=== PATIENT | male | born 1955 | race African-American/Black ===

== ENCOUNTER 2016-08-29 23:03 | Inpatient (IN) | payer OTHER ==
--- NOTE | 2016-08-30 01:09 | PDOC ---
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 Patient reports he had a recent fall about 1 day ago, landing on his gluteal region. Denies LOC or head trauma. Now has complaints of increasing pain to the bilateral legs, hip, lower back and left arm. States he is compliant with his pain medications for his neuropathy. The patient denies fever, chills, cough, SOB, chest pain, and palpitations. The patient denies abdominal pain, nausea, vomiting, and diarrhea. Allergies: penicillin Social History: No alcohol, tobacco, or drug use reported. Past Surgical History: neck surgery PCP: Dr. Elena Hauser <Rosanna Abdi - Last Filed: 08/30/16 03:14> - General History Source: Patient <Eugenio Collazo - Last Filed: 08/30/16 04:03> - General Stated Complaint: FALL Time Seen by Provider: 08/30/16 01:02 Past History <Rosanna Abdi - Last Filed: 08/30/16 03:14> - Past Medical History Liver Disease: No (HEP C) - Surgical History Orthopedic Surgery: Yes (discogenic dz s/p neck sx) - Immunization History Immunization Up to Date: Yes - Psycho/Social/Smoking Cessation Hx Anxiety: No Suicidal Ideation: No Smoking History: Never smoked Have you smoked in the past 12 months: No Hx Alcohol Use: No Drug/Substance Use Hx: No Substance Use Type: None Hx Substance Use Treatment: No <Eugenio Collazo - Last Filed: 08/30/16 04:03> - Past Medical History Allergies/Adverse Reactions: Allergies Allergy/AdvReac Type Severity Reaction Status Date / Time Penicillins Allergy Severe Swelling Verified 08/30/16 01:18 Home Medications: Ambulatory Orders Oxycodone HCl/Acetaminophen [Percocet 5-325 mg Tablet] 1 tab PO ASDIR 08/21/15 Gabapentin [Neurontin] 0 mg PO DAILY 01/23/16 Oxycodone HCl [Oxycontin] 30 mg PO PRN 03/23/16 Review of Systems - Review of Systems Able to Perform ROS?: Yes Comments:: 08/30/16 01:24 CONSTITUTIONAL: Absent: fever, no chills, no fatigue EYES: Absent: visual changes ENT: Absent: ear pain, no sore throat CARDIOVASCULAR: Absent: chest pain, no palpitations RESPIRATORY: Absent: cough, no SOB GI: Absent: abdominal pain, no nausea, no vomiting, no constipation, no diarrhea GENITOURINARY: Absent: dysuria, no frequency, no hematuria MUSCULOSKELETAL: +pain to the bilateral legs, hip, lower back and left arm SKIN: Absent: rash NEURO: Absent: headache <Rosanna Abdi - Last Filed: 08/30/16 03:14> *Physical Exam - Vital Signs Last Vital Signs Temp Pulse Resp BP Pulse Ox 97.9 F 69 18 173/90 98 08/29/16 23:25 08/29/16 23:25 08/29/16 23:25 08/29/16 23:25 08/29/16 23:25 - Physical Exam Comments: 08/30/16 01:24 GENERAL: Well-appearing, well-nourished. No apparent distress. HEENT: Normocephalic, atraumatic. No racoon or santana signs. PERRL, EOM intact. No hemotympanum. CARDIOVASCULAR: Normal S1, S2. Regular rate and rhythm. PULMONARY: Clear to auscultation bilaterally. ABDOMEN: Soft, non-distended, non-tender. EXTREMITIES: Decreased ROM of left shoulder and bilateral legs secondary to pain. Tenderness of the left shoulder, bilateral hip, and bilateral femur. No gross deformities. SKIN: Warm, dry. No rash NEUROLOGICAL: No focal neurological deficits. <Rosanna Abdi - Last Filed: 08/30/16 03:14> ED Treatment Course - LABORATORY CBC & Chemistry Diagram: 08/30/16 02:22 08/30/16 02:22 - RADIOLOGY Radiograph Interpretation: 08/30/16 03:14 EXAM: CT lumbar spine without contrast Reviewed by Imaging warehouse operations associate: FINDINGS: Negative for lumbar fracture or malalignment. L2-3 disc/osteophyte complex and facet hypertrophy. Disc bulging. Results in mild canal narrowing. L3-4 prominent disc bulging probably with a central herniated component. Posterior element/ligamentum flavum hypertrophy. This results in moderate to severe canal stenosis. This is more accurately be assessed with MRI. L4-5 prominent disc bulging and posterior element/ligamentum flavum hypertrophy also resulting in moderate to severe canal stenosis. L5-S1 disc bulging with mild ligamentum flavum hypertrophy. No significant canal stenosis. Evaluation of the disc bulges/herniations and canal stenosis is more accurately assessed with MRI. There also lucencies in the sacrum and iliac bones which should be assessed by MRI to make sure they are not bony neoplasm. Degenerative changes of the sacroiliac joints noted. <Rosanna Abdi - Last Filed: 08/30/16 03:14> - LABORATORY CBC & Chemistry Diagram: 08/30/16 02:22 08/30/16 02:22 <Eugenio Collazo - Last Filed: 08/30/16 04:03> Medical Decision Making - Medical Decision Making 08/30/16 04:01 Dr. Collazo: The scribe's documentation has been prepared under my direction and personally reviewed by me in its entirery. I confirm that the note above accurately reflects all work, treatment, procedures, and medical decision making performed by me. Pt with multiple herniated discs of lumbar spine. Pt having intractable back pain. Will admit to medr. <Eugenio Collazo - Last Filed: 08/30/16 04:03> *DC/Admit/Observation/Transfer - Attestations Scribe Attestion: 08/30/16 01:24 Documentation prepared by Rosanna Abdi, acting as medical records analyst for Eugenio Collazo MD <Rosanna Abdi - Last Filed: 08/30/16 03:14> - Discharge Dispostion Admit: Yes <Eugenio Collazo - Last Filed: 08/30/16 04:03> Diagnosis at time of Disposition: Radiculopathy, Status post fall, Herniated intervertebral disc of lumbar spine , Intractable low back pain - Referrals Referrals: Elena Hauser [Primary Care Provider] -
[2016-08-30] MEDS ORDERED: KETOROLAC TROMETHAMINE 30 MG/1 ML VIAL IVPUSH ONE (02:31)
[2016-08-30 02:44] LABS: MCH 31.5 pg (25.7-33.7); MCHC 33.1 g/dl (32.0-35.9); MEAN CELL VOLUME 95.4 fl (80-96); NEUTROPHILS 52.5 % (42.8-82.8); RDW 14.5 % (11.9-15.9); WHITE BLOOD COUNT 4.5 K/mm3 (4.0-10.0)
[2016-08-30] MEDS ORDERED: METOPROLOL TARTRATE 5 MG/5 ML VIAL ONE (02:47)
[2016-08-30] MEDS ORDERED: HEPARIN INFUSION - 500 ML IVPB ONE (02:52)
[2016-08-30 03:05] LABS: ALBUMIN 3.7 g/dl (3.4-5.0); ANION GAP 13 (8-16); BILIRUBIN,TOTAL 0.5 mg/dL (0.2-1.0); CALCIUM 8.4 mg/dL (8.5-10.1); CO2 29 mmol/L (21-32); CREATININE 0.6 mg/dL (0.7-1.3); GLUCOSE,RANDOM 83 mg/dL (74-106); MAGNESIUM 1.8 mg/dL (1.8-2.4); SGOT/AST 66 U/L (15-37); SGPT/ALT 32 U/L (12-78); TOT PROT 6.6 g/dl (6.4-8.2)
[2016-08-30 03:08] LABS: ALK PHOS 50 U/L (45-117); TROPONIN I < 0.02 ng/ml (0.00-0.05)
[2016-08-30] MEDS ORDERED: KETOROLAC TROMETHAMINE 30 MG/1 ML VIAL ONE (03:33)
[2016-08-30 03:56] LABS: MEAN PLT VOLUME 10.1 fl (7.5-11.1); PLATELET COMMENT2 FEW GIANT PLTS; PLATELET COUNT 174 K/MM3 (134-434)
[2016-08-30] MEDS ORDERED: morphine CARPU-JECT 2 MG/1 ML DISP.SYRIN IVPUSH ONE ×2 (04:03→17:22)
[2016-08-30] MEDS ORDERED: ONDANSETRON 4 MG/2 ML VIAL IVPUSH STA (04:03)
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
[2016-08-30] MEDS ORDERED: ONDANSETRON 4 MG/2 ML VIAL ONE (05:28)
[2016-08-30] MEDS ORDERED: morphine CARPU-JECT 4 MG/1 ML DISP.SYRIN ONE (05:28)
[2016-08-30] MEDS ORDERED: ALBUTEROL SO4 0.083% IH SOL 2.5 MG/3 ML VIAL.NEB. NEB ONE (05:42)
[2016-08-30] MEDS ORDERED: ALBUTEROL SO4 2.5/IPRATROPIUM 0.5 INH SOL 3 ML VIAL.NEB. NEB ONE (05:43)
--- NOTE | 2016-08-30 09:37 | PN ---
Progress Note (short form) - Note Progress Note: Pt seen and examined. He is a 61 year old male 1 day s/p fall. He was c/o left hip pain, this morning it is more right hip pain. He has minimal low back pain. He denies and LE radiculopathy. PE No tenderness at LS spine, no muscle spasm. B/L LE NVI, no radiculopathy, no long track signs. No pain in left hip, groin, femur. No pelvic pain. No right groin pain. Min pain in right hip with flexion, int and ext rotation. Right proximal femur with mod tenderness, no echymoses, no swelling, no deformity. Min pain right femur with log rolling, no pain with axial load. Xray Of both hips and pelvis show no acute pathology, only mild OA. CTscan of LS spine, shows no acute pathology, only shows OA and central canal stenosis. Imp 61 yo M 1 day s/p fall, with c/o moderate right proximal femur pain/ contusion, overall doing fine. Rec P.T. for ambulation assistance, WBAT. Can DC tomorrow from an orthopedic pov F/U as an out pt if needed
--- NOTE | 2016-08-30 10:07 | EKG ---
Test Reason : Blood Pressure : / mmHG Vent. Rate : 063 BPM Atrial Rate : 063 BPM P-R Int : 158 ms QRS Dur : 106 ms QT Int : 466 ms P-R-T Axes : 066 072 056 degrees QTc Int : 476 ms NORMAL SINUS RHYTHM NORMAL ECG WHEN COMPARED WITH ECG OF 23-MAR-2016 05:44, NO SIGNIFICANT CHANGE WAS FOUND Confirmed by PHILIP GUZMÁN MD ([id number]) on 08/30/2016 10:07:02 AM Referred By: Confirmed By:PHILIP GUZMÁN MD
[2016-08-30 11:07] VITALS: BMI 19.1
[2016-08-30] MEDS: KETOROLAC TROMETHAMINE 30 MG/1 ML VIAL IVPUSH PRN ×2 (11:13→21:58)
[2016-08-30] MEDS: oxyCODONE HCL 5 MG TABLET PO PRN (17:39)
[2016-08-30 19:17] LABS: URINE APPEARANCE CLEAR; URINE BLOOD NEGATIVE (NEGATIVE); URINE COLOR AMBER; URINE GLUCOSE (UA) NEGATIVE (NEGATIVE); URINE KETONE TRACE (NEGATIVE); URINE NITRITE NEGATIVE (NEGATIVE); URINE UROBILINOGEN 4.0 E.U/dl E.U./dl (0.2-1.0)
[2016-08-30 19:18] LABS: URINE LEUK ESTERASE TRACE (NEGATIVE); URINE PROTEIN 1+ (NEGATIVE)
[2016-08-30 19:21] LABS: URINE HYALINE CAST 1 /lpf; URINE MUCUS FEW; URINE RBC 1 /hpf (0-3); URINE WBC 12 /hpf (3-5); YEAST RARE
[2016-08-30] MEDS ORDERED: morphine CARPU-JECT 2 MG/1 ML DISP.SYRIN IVPUSH PRN (20:52)
[2016-08-31] MEDS: KETOROLAC TROMETHAMINE 30 MG/1 ML VIAL IVPUSH PRN ×2 (05:29→15:06)
[2016-08-31] MEDS: oxyCODONE HCL 5 MG TABLET PO PRN (10:22)
--- NOTE | 2016-08-31 11:01 | PN ---
Progress Note (short form) - Note Progress Note: Ortho Pt seen and examined- feeling much better decr pain, incr rom nvi a/p PT nothing further to do d/c home today per PMD f/u in the office prn d/w Dr. Rodriguez
[2016-08-31] MEDS ORDERED: amLODIPine BESYLATE 10 MG TABLET (FP) PO ONE (14:55)
[2016-08-31] MEDS ORDERED: LISINOPRIL 20 MG TABLET (FP) PO ONE (14:55)
--- NOTE | 2016-08-31 17:28 | DS ---
Physical Exam: SUBJECTIVE: Patient seen and examined. He denies pain, he is ambulating with walker he is eager to go home. OBJECTIVE: Vital Signs Period Temp Pulse Resp BP Sys/Greenberg Pulse Ox Last 24 Hr 97.8 F-98.8 F 57-96 18-20 150-212/75-118 98-98 PHYSICAL EXAM GENERAL: The patient is awake, alert, and fully oriented, in no acute distress. HEAD: Normal with no signs of trauma. EYES: PERRL, extraocular movements intact, sclera anicteric, conjunctiva clear. ENT: Ears normal, nares patent, oropharynx clear without exudates, moist mucous membranes. NECK: Trachea midline, full range of motion, supple. LUNGS: Breath sounds equal, clear to auscultation bilaterally, no wheezes, no crackles, no accessory muscle use. HEART: Regular rate and rhythm, S1, S2 without murmur, rub or gallop. ABDOMEN: Soft, nontender, nondistended, normoactive bowel sounds, no guarding, no rebound, no hepatosplenomegaly, no masses. EXTREMITIES: LUE weakness, chronic back pain, 2+ pulses, warm, well-perfused, no edema. NEUROLOGICAL: Cranial nerves II through XII grossly intact. Normal speech PSYCH: Normal mood, normal affect. SKIN: Warm, dry, normal turgor, no rashes or lesions noted. Laboratory Results - last 24 hr 08/30/16 18:40 Urine Color Donna Urine Appearance Clear Urine pH 5.0 Ur Specific [place] 1.029 Urine Protein 1+ H Urine Glucose (UA) Negative Urine Ketones Trace H Urine Blood Negative Urine Nitrite Negative Urine Bilirubin 2.0 Urine Urobilinogen 4.0 e.u/dl Ur Leukocyte Esterase Trace H Urine RBC 1 Urine WBC 12 Hyaline Casts 1 Urine Mucus Few Urine Yeast Rare HOSPITAL COURSE: Date of Admission:08/30/16 Date of Discharge: 08/31/16 Minutes to complete discharge: 35 Discharge Summary Reason For Visit: RADICULOPATHY S/P FALL HERNIATED DISC Current Active Problems DVT prophylaxis (Acute) Herniated intervertebral disc of lumbar spine (Acute) Intractable low back pain (Acute) Status post fall (Acute) Radiculopathy (Chronic) Hospital Course: Initial Hospital Course: Briefly, this 61 y/o male with a past medical history of Hepatitis C, Neuropathy. Discogenic dz. presented to the ED with s/p unwitnessed mechanical fall, back pain, hip pain, leg pain, left arm pain x 1 day. ER course: (1) CT LSP- Negative for lumbar fracture or mal alignment. L2-3 disc/osteophyte complex and facet hypertrophy. (2) ETOH level 184 Subsequent Hospital Course/Progress Note/Discharge Summary: Assessment: 61 year old male admitted s/p fall, with c/o moderate right proximal femur pain/contusion. 1. s/p fall with right proximal femur contusion - Walker for ambulation - Pain meds as per home pain mgmt routine for chronic back pain 2. HTN - Hypertensive on discharge, restarted home dose lisinopril 20mg daily and norvasc 10mg daily now - To continue on discharge - Monitor BP through tonight, if stable this evening after dinner can send home Dispo: - Home with pcp f/u and above meds - D/w pt he is aware and agrees to above plan Condition: Stable - Instructions Diet, Activity, Other Instructions: Please return to the ED for any new, persistent, or worsening symptoms. Follow up with your PCP in 1 week Take medications as directed on home medication list. You need to take your lisinopril 20mg daily and norvasc 10mg daily for blood pressure Referrals: Elena Hauser [Primary Care Provider] - Disposition: HOME - Home Medications Comprehensive Discharge Medication List: Ambulatory Orders NK [No Known Home Medication] 08/30/16 This patient is new to me today: Yes Date on this admission: 08/31/16 Emergency Visit: Yes ED Registration Date: 08/30/16 Care time: The patient presented to the Emergency Department on the above date and was hospitalized for further evaluation of their emergent condition. Critical Care patient: No - Discharge Referral Referred to [facility] No
[2016-08-31 20:28] VITALS: BP 135/87; PULSE 63; TEMP 98.6
--- NOTE | 2016-08-31 20:37 | HOSP ---
Subjective - Review of Symptoms Events since last encounter: Hospitalist Encounter Notified by primary RN that the patient's BP has improved. BP 135/87, P 63 Discharge Ordered placed, patient to be discharged by RN. Discharge plan discussed earlier with patient by ROGELIO Nguyen Physical Examination Vital Signs: Vital Signs Temperature 97.8 F 08/31/16 16:58 Pulse Rate 57 L 08/31/16 16:58 Respiratory Rate 18 08/31/16 16:58 Blood Pressure 181/111 08/31/16 16:58 O2 Sat by Pulse Oximetry (%) 98 08/31/16 10:00
== END 2016-08-31 20:59 | disposition home or self-care (01) | DRG 347 ==
LOC: JER 23:03 → JERBED 08-30 00:59 → UNDOADMIN 08-30 00:59 → JERBED 08-30 01:04 → UNDOADMIN 08-30 01:04 → JERBED 08-30 04:00 → J7W 08-30 08:33
PROVIDERS: ADMIT Internal Medicine; ATTEND Nurse Practitioner Acute Care
DX: M51.26 Other intervertebral disc displacement, lumbar region (principal); M54.16 Radiculopathy, lumbar region; B19.20 Unspecified viral hepatitis C without hepatic coma; M79.606 Pain in leg, unspecified; G62.9 Polyneuropathy, unspecified; M25.78 Osteophyte, vertebrae; S30.1XXA Contusion of abdominal wall, initial encounter; W18.39XA Other fall on same level, initial encounter; Y93.89 Activity, other specified; Y92.098 Other place in other non-institutional residence as the place of occurrence of the external cause; I10 Essential (primary) hypertension
CPT/HCPCS: 36415; 71010-TC; 72131-TC; 73523-TC; 73552-TC-LT; 73552-TC-RT; 80053; 80307; 81003; 81015; 82550; 82553; 83735; 84484; 85025; 87086; 87186; 93005; 93010; 97116-GP; 97161-GP; 99285-25

== ENCOUNTER 2016-11-29 17:17 | Inpatient (IN) | payer OTHER ==
[2016-11-29 17:22] VITALS: BMI 22.4
--- NOTE | 2016-11-29 18:23 | PDOC ---
History of Present Illness - General History Source: Patient Exam Limitations: No Limitations - History of Present Illness Initial Comments: CHIEF COMPLAINT: 61 y/o afebrile male with PMH Hepatitis C, HTN, left arm weakness and tingling secondary to cervical spine issue c/o right sided weakness s/p fall this morning. HISTORY OF PRESENT ILLNESS: The patient states early this morning he fell after he got out of bed. He states he did not hit his head nor did he lose consciousness after the fall. He states he was on the floor and couldn't move his right leg or arm so he laid there for many hours. He states by 2pm he was able to get himself onto a chair and a friend of his showed up at his house. According to his friend, the patient was slurring his speech when he first arrived at his home. The slurred speech has since resolved. The patient states prior to the fall he felt slightly dizzy and sweaty. He states he currently still has weakness in his right leg and arm, although improved from earlier. He did have some numbness in his right arm as well. He denies BUSCH, changes in vision/hearing, neck pain, f/c, n/v/d, CP, SOB, palpitations, abd pain, back pain, hematuria, dysuria. He does admit to baseline left hand weakness and some tingling in his right hand normally for which he sees a neurologist. He is normally ambulatory with a cane. Vital signs on arrival are within normal limits. REVIEW OF SYSTEMS: GENERAL/CONSTITUTIONAL: No fever/chills. No weakness. No weight change. +fall. +sweaty HEAD, EYES, EARS, NOSE AND THROAT: No change in vision. No ear pain or discharge. No sore throat. CARDIOVASCULAR: No chest pain or shortness of breath. RESPIRATORY: No cough, wheezing, or hemoptysis. GASTROINTESTINAL: no abd pain, nausea, vomiting, diarrhea. GENITOURINARY: No dysuria, frequency, or change in urination. MUSCULOSKELETAL: +right arm and right leg weakness. No neck or back pain. SKIN: No rash or easy bruising. NEUROLOGIC: +dizziness. +slurred speech. No headache, loss of consciousness, or loss of sensation. PHYSICAL EXAM: GENERAL: The patient is awake, alert, and fully oriented, in no acute distress. He is pleasant and speaks full, coherent sentences. HEAD: Normal with no signs of trauma. NECK: No midline cervical spine TTP or step offs. ENT: Pupils equal, round and reactive to light, extraocular movements intact, sclera anicteric, conjunctiva clear. LUNGS: Clear to auscultation bilaterally. Normal excursion. No respiratory distress or use of accessory muscles. CV: RRR, S1/S2, no MRG. Cap refill < 2 sec. ABDOMEN: Soft, non-distended, non-tender even to deep palpation, no hepatomegaly or splenomegaly, no masses. EXTREMITIES: Decreased strength in right hand and arm. Decreased strength in right leg. No edema. Left hand held in permanent contraction (patient's baseline). NEUROLOGICAL:Normal speech. CN II-XII grossly intact. No slurred speech. No facial droop. Normal sensation in b/l UEs and LEs. PSYCH: Normal mood, normal affect. SKIN: Warm, dry, normal turgor, no rashes or lesions noted. <Nupur Fountain - Last Filed: 11/29/16 17:58> <Emilee Garcia - Last Filed: 11/30/16 05:18> - General Chief Complaint: Injury Stated Complaint: FALL/INJURY Time Seen by Provider: 11/29/16 17:57 Past History - Past Medical History Anemia: No Asthma: No Cancer: No Cardiac Disorders: No CVA: No COPD: No CHF: No Dementia: No Diabetes: No GI Disorders: No Disorders: No HTN: No Hypercholesterolemia: No Liver Disease: No (HEP C) Seizures: No Thyroid Disease: No - Surgical History Abdominal Surgery: No Appendectomy: No Cardiac Surgery: No Cholecystectomy: No Lung Surgery: No Neurologic Surgery: No Orthopedic Surgery: Yes (discogenic dz s/p neck sx) - Immunization History Immunization Up to Date: Yes - Psycho/Social/Smoking Cessation Hx Anxiety: No Suicidal Ideation: No Smoking History: Never smoked Have you smoked in the past 12 months: No Hx Alcohol Use: No Drug/Substance Use Hx: No Substance Use Type: None Hx Substance Use Treatment: No <Nupur Fountain - Last Filed: 11/29/16 17:58> <Emilee Garcia - Last Filed: 11/30/16 05:18> - Past Medical History Allergies/Adverse Reactions: Allergies Allergy/AdvReac Type Severity Reaction Status Date / Time Penicillins Allergy Severe Swelling Verified 11/29/16 17:22 Home Medications: Ambulatory Orders NK [No Known Home Medication] 08/30/16 *Physical Exam - Vital Signs Last Vital Signs Temp Pulse Resp BP Pulse Ox 97.4 F L 70 20 121/81 100 11/29/16 17:18 11/29/16 17:18 11/29/16 17:18 11/29/16 17:18 11/29/16 17:18 <Nupur Fountain - Last Filed: 11/29/16 17:58> - Vital Signs Last Vital Signs Temp Pulse Resp BP Pulse Ox 99.1 F 70 16 123/74 96 11/30/16 01:20 11/30/16 01:20 11/30/16 01:20 11/30/16 01:20 11/30/16 01:20 <Emilee Garcia - Last Filed: 11/30/16 05:18> ED Treatment Course - LABORATORY CBC & Chemistry Diagram: 11/29/16 18:34 11/29/16 18:34 - ADDITIONAL ORDERS Additional order review: Laboratory Results 11/30/16 11/29/16 11/29/16 00:01 19:00 19:00 INR 1.02 Sodium Potassium Chloride Carbon Dioxide Anion Gap BUN Creatinine Creat Clearance w eGFR POC Glucometer Random Glucose Lactic Acid 1.9 Calcium Total Bilirubin AST ALT Alkaline Phosphatase Creatine Kinase Creatine Kinase Index CK-MB (CK-2) CK-MB (CK-2) Rel Index Troponin I Total Protein Albumin Urine Color Urine Appearance Urine pH Urine Protein Urine Glucose (UA) Urine Ketones Urine Blood Urine Nitrite Urine Bilirubin Urine Urobilinogen Ur Leukocyte Esterase Urine RBC Urine WBC Ur Epithelial Cells Urine Bacteria Hyaline Casts Urine Mucus Opiates Screen Positive Methadone Screen Negative Barbiturate Screen Negative Phencyclidine Screen Negative Ur Amphetamines Screen Negative MDMA (Ecstasy) Screen Negative Benzodiazepines Screen Negative Cocaine Screen Negative U Marijuana (THC) Screen Positive 11/29/16 11/29/16 11/29/16 19:00 18:34 18:34 INR Sodium Potassium Chloride Carbon Dioxide Anion Gap BUN Creatinine Creat Clearance w eGFR POC Glucometer Random Glucose Lactic Acid 4.0 H* Calcium Total Bilirubin AST ALT Alkaline Phosphatase Creatine Kinase Creatine Kinase Index CK-MB (CK-2) CK-MB (CK-2) Rel Index Cancelled Troponin I Total Protein Albumin Urine Color Yellow Urine Appearance Clear Urine pH 5.0 Urine Protein Negative Urine Glucose (UA) Negative Urine Ketones 1+ H Urine Blood Negative Urine Nitrite Positive Urine Bilirubin Negative Urine Urobilinogen Negative Ur Leukocyte Esterase 1+ H Urine RBC 3 Urine WBC 20 Ur Epithelial Cells Rare Urine Bacteria Rare Hyaline Casts 7 Urine Mucus Many Opiates Screen Methadone Screen Barbiturate Screen Phencyclidine Screen Ur Amphetamines Screen MDMA (Ecstasy) Screen Benzodiazepines Screen Cocaine Screen U Marijuana (THC) Screen 11/29/16 11/29/16 18:34 18:18 INR Sodium 139 Potassium 3.9 Chloride 100 Carbon Dioxide 25 Anion Gap 14 BUN 12 D Creatinine 0.8 D Creat Clearance w eGFR > 60 POC Glucometer 111.46960 Random Glucose 81 Lactic Acid Calcium 8.3 L Total Bilirubin 0.7 D AST 179 H D ALT 42 D Alkaline Phosphatase 52 Creatine Kinase 420 H D Creatine Kinase Index 0.8 CK-MB (CK-2) 3.190 CK-MB (CK-2) Rel Index Troponin I < 0.02 Total Protein 6.4 Albumin 3.7 Urine Color Urine Appearance Urine pH Urine Protein Urine Glucose (UA) Urine Ketones Urine Blood Urine Nitrite Urine Bilirubin Urine Urobilinogen Ur Leukocyte Esterase Urine RBC Urine WBC Ur Epithelial Cells Urine Bacteria Hyaline Casts Urine Mucus Opiates Screen Methadone Screen Barbiturate Screen Phencyclidine Screen Ur Amphetamines Screen MDMA (Ecstasy) Screen Benzodiazepines Screen Cocaine Screen U Marijuana (THC) Screen 11/29/16 11/29/16 18:34 18:18 RBC 4.20 MCV 95.0 MCHC 32.6 RDW 13.3 MPV 10.4 Neutrophils % 88.0 H D Lymphocytes % 5.5 L D Monocytes % 6.2 Eosinophils % 0.1 D Basophils % 0.2 POC Glucometer 111.00274 - RADIOLOGY Radiology Studies Ordered: Category Date Time Status BRAIN CTA [CT] Stat CT Scan 11/30/16 03:08 Taken - Medications Given in the ED: ED Medications Discontinued Medications Generic Name Dose Route Start Last Admin Trade Name Freq PRN Reason Stop Dose Admin Sodium Chloride 1,000 mls @ 1,000 mls/hr 11/29/16 22:49 11/29/16 23:28 Normal Saline - IV 11/29/16 23:48 1,000 mls/hr ASDIR STA Administration Ciprofloxacin/Dextrose 200 mls @ 200 mls/hr 11/29/16 22:51 11/30/16 00:07 Cipro 400 Mg Premix Ivpb (Restricted To Id) IVPB 11/29/16 23:50 200 mls/hr ONCE ONE Administration Morphine Sulfate 4 mg 11/29/16 22:49 11/29/16 23:28 Morphine Injection - IVPUSH 11/29/16 22:50 4 mg ONCE ONE Administration <Emilee Garcia - Last Filed: 11/30/16 05:18> Medical Decision Making - Medical Decision Making A/P: 61 y/o male with fall at approximately 8am (10 hours ago) with right sided weakness. Plan is as follows: 1. EKG 2. Labs 3. Head CT r/o TIA/CVA I am signing this patient out to my colleague: ROGELIO Garcia In brief, this patient is being seen in the ED for a chief complaint of: fall with slurred speech, right sided weakness I have completed the initial assessment interview note and have ordered: labs, EKG, UA, Head CT I have reviewed the following results: none Pending results are: all Plan for disposition is as follows: Pending <Nupur Fountain - Last Filed: 11/29/16 17:58> *DC/Admit/Observation/Transfer <Nupur Fountain - Last Filed: 11/29/16 17:58> - Discharge Dispostion Admit: Yes <Emilee Garcia - Last Filed: 11/30/16 05:18> Diagnosis at time of Disposition: Weakness Transient cerebral ischemia Qualifiers: Transient cerebral ischemia type: unspecified Qualified Code(s): G45.9 - Transient cerebral ischemic attack, unspecified Urinary tract infection Qualifiers: Urinary tract infection type: urethritis Qualified Code(s): N34.2 - Other urethritis - Discharge Dispostion Condition at time of disposition: Fair NIH Stroke Scale - Last Known Well Date/Time & Onset Date Last Known Well: 11/29/16 Time Last Known Well: 08:00 - Initial Evaluation Level of consciousness: Alert Ask patient the month and their age: Answers both correctly Ask patient to open & close eyes; make fist and let go: Obeys both correctly Best gaze (horizontal eye movement): Normal Visual field testing: No visual field loss Facial paresis (Show teeth/raise eyebrows/close eyes tight): Normal symmetrical movement Motor Function: Left Arm: Some effort against gravity Motor Function: Right Arm: Some effort against gravity Motor Function: Left Leg: Normal (extends leg 30 degrees for 5 seconds without drift) Motor Function: Right Leg: Some effort against gravity Limb Ataxia: No ataxia Sensory(Use pinprick test arms,legs,trunk,face/side to side): Normal Best language (Describe picture, name items, read sentences): No Aphasia Dysarthria (read several words): Normal articulation Extinction and Inattention: No abnormality - Total Score NIH Stroke Scale Score: 6 <Nupur Fountain - Last Filed: 11/29/16 17:58>
[2016-11-29 18:41] LABS: BASOPHIL 0.2 % (0-2.0); EOSINOPHIL 0.1 % (0-4.5); MCH 30.9 pg (25.7-33.7); MCHC 32.6 g/dl (32.0-35.9); MEAN PLT VOLUME 10.4 fl (7.5-11.1); PLATELET COUNT 181 K/MM3 (134-434); RDW 13.3 % (11.9-15.9); WHITE BLOOD COUNT 7.3 K/mm3 (4.0-10.0)
[2016-11-29 19:03] LABS: ALBUMIN 3.7 g/dl (3.4-5.0); ANION GAP 14 (8-16); CALCIUM 8.3 mg/dL (8.5-10.1); CO2 25 mmol/L (21-32); CREATININE 0.8 mg/dL (0.7-1.3); GLUCOSE,RANDOM 81 mg/dL (74-106); SGOT/AST 179 U/L (15-37); SGPT/ALT 42 U/L (12-78)
[2016-11-29 19:06] LABS: ALK PHOS 52 U/L (45-117); BILIRUBIN,TOTAL 0.7 mg/dL (0.2-1.0); TOT PROT 6.4 g/dl (6.4-8.2); TROPONIN I < 0.02 ng/ml (0.00-0.05)
[2016-11-29 20:17] LABS: INR 1.02 (0.82-1.09); PROTHROMBIN TIME (PATIENT) 11.2 SEC (9.98-11.88)
[2016-11-29 20:20] LABS: URINE MARIJUANA THC POSITIVE ng/ml (CUTOFF=50)
[2016-11-29 20:33] LABS: PLATELET ESTIMATE ADEQUATE (NORMAL)
--- NOTE | 2016-11-29 20:36 | PDOC ---
*Physical Exam - Vital Signs Last Vital Signs Temp Pulse Resp BP Pulse Ox 97.4 F L 70 20 121/81 100 11/29/16 17:18 11/29/16 17:18 11/29/16 17:18 11/29/16 17:18 11/29/16 17:18 - Physical Exam Comments: 11/29/16 20:35 The patient was examined by [OLEGARIO Brown] under my direct supervision. I personally evaluated the patient. I concur with the above findings and the plan of care. 11/30/16 02:24 Patient is 61-year-old male with history of hypertension who presented from home for inability to walk. Approximately 10 AM on day of arrival. Patient was unable to get up and slid off the couch onto the floor where he remained until approximately 5 PM shortly prior to arrival. On arrival, patient complained of persistent, chronic right lower extremity discomfort and mild left lower extremity weakness. pts friend also commendted that pt had exhibitted slurred speech which had resolved prior to arrival in the ED. on the ED evaluation: No cranial nerve deficits were observed, no pronation drift was noted, and strength was noted to be 5/5 b/l to UEs and LEs. CT head showed a dense M2 segment of the left middle cerebral artery. pt is not a tPA candidate due to presentation 7 hrs after onset of sxs and outside the window for intravascular intervention. will administer asa-325mg po. will consult neurology. will admit to stroke for mri. ED Treatment Course - LABORATORY CBC & Chemistry Diagram: 12/01/16 06:07 12/01/16 06:07 - ADDITIONAL ORDERS Additional order review: Laboratory Results 11/29/16 11/29/16 11/29/16 19:00 19:00 18:34 INR 1.02 Sodium Potassium Chloride Carbon Dioxide Anion Gap BUN Creatinine Creat Clearance w eGFR POC Glucometer Random Glucose Lactic Acid 4.0 H* Calcium Total Bilirubin AST ALT Alkaline Phosphatase Creatine Kinase CK-MB (CK-2) Troponin I Total Protein Albumin Opiates Screen Positive Methadone Screen Negative Barbiturate Screen Negative Phencyclidine Screen Negative Ur Amphetamines Screen Negative MDMA (Ecstasy) Screen Negative Benzodiazepines Screen Negative Cocaine Screen Negative U Marijuana (THC) Screen Positive 11/29/16 11/29/16 18:34 18:18 INR Sodium 139 Potassium 3.9 Chloride 100 Carbon Dioxide 25 Anion Gap 14 BUN 12 D Creatinine 0.8 D Creat Clearance w eGFR > 60 POC Glucometer 111.17909 Random Glucose 81 Lactic Acid Calcium 8.3 L Total Bilirubin 0.7 D AST 179 H D ALT 42 D Alkaline Phosphatase 52 Creatine Kinase 420 H D CK-MB (CK-2) 3.190 Troponin I < 0.02 Total Protein 6.4 Albumin 3.7 Opiates Screen Methadone Screen Barbiturate Screen Phencyclidine Screen Ur Amphetamines Screen MDMA (Ecstasy) Screen Benzodiazepines Screen Cocaine Screen U Marijuana (THC) Screen 11/29/16 11/29/16 18:34 18:18 RBC 4.20 MCV 95.0 MCHC 32.6 RDW 13.3 MPV 10.4 Neutrophils % 88.0 H D Lymphocytes % 5.5 L D Monocytes % 6.2 Eosinophils % 0.1 D Basophils % 0.2 POC Glucometer 111.23359 *DC/Admit/Observation/Transfer Diagnosis at time of Disposition: Weakness, TIA (transient ischemic attack), UTI (urinary tract infection) - Discharge Dispostion Disposition: HOME Condition at time of disposition: Good - Prescriptions
[2016-11-29 22:24] LABS: URINE APPEARANCE CLEAR; URINE BILIRUBIN NEGATIVE (NEGATIVE); URINE BLOOD NEGATIVE (NEGATIVE); URINE COLOR YELLOW; URINE GLUCOSE (UA) NEGATIVE (NEGATIVE); URINE KETONE 1+ (NEGATIVE); URINE LEUK ESTERASE 1+ (NEGATIVE); URINE NITRITE POSITIVE (NEGATIVE); URINE PROTEIN NEGATIVE (NEGATIVE); URINE UROBILINOGEN NEGATIVE E.U./dl (0.2-1.0)
[2016-11-29 22:28] LABS: URINE BACTERIA RARE /hpf (NONE SEEN); URINE HYALINE CAST 7 /lpf; URINE MUCUS MANY; URINE RBC 3 /hpf (0-3); URINE WBC 20 /hpf (3-5)
[2016-11-29] MEDS ORDERED: SODIUM CHLORIDE 1,000 ML IV STA (22:49)
[2016-11-29] MEDS ORDERED: morphine CARPU-JECT 4 MG/1 ML DISP.SYRIN IVPUSH ONE (22:49)
[2016-11-29] MEDS ORDERED: CIPROFLOXACIN 400 MG/D5W 200 ML IVPB ONE (22:51)
[2016-11-29] MEDS ORDERED: morphine CARPU-JECT 4 MG/1 ML DISP.SYRIN ONE (23:18)
--- NOTE | 2016-11-30 04:12 | HP ---
HPI: Patient is a 61 year old male with a PMHx of HTN, Prior CVA who reports lower extremity weakness with the inability to walk that started this morning at 10: 00. Patient reports being on the floor from that time until 17:00 until his nephew walked in and found him. Patient reports lower extremity weakness with an episode of slurred speech that resolved upon arrival to the ED. PHYSICAL EXAMINATION Vital Signs - 24 hr 11/29/16 11/29/16 11/29/16 17:18 19:11 23:05 Temperature 97.4 F L 98.8 F Pulse Rate 70 Pulse Rate [ 70 80 Left] Respiratory 20 17 16 Rate Blood Pressure 121/81 Blood Pressure 126/79 118/75 [Left] O2 Sat by Pulse 100 98 100 Oximetry (%) 11/30/16 01:20 Temperature 99.1 F Pulse Rate Pulse Rate [ 70 Left] Respiratory 16 Rate Blood Pressure Blood Pressure 123/74 [Left] O2 Sat by Pulse 96 Oximetry (%) GENERAL: Awake, alert, and fully oriented, in no acute distress. HEAD: Normal with no signs of trauma. EYES: Pupils equal, round and reactive to light, extraocular movements intact, sclera anicteric, conjunctiva clear. EARS, NOSE, THROAT: Dry mucous membranes NECK: Normal range of motion, supple without lymphadenopathy LUNGS: Breath sounds equal, clear to auscultation bilaterally. No wheezes, and no crackles. No accessory muscle use. HEART: Regular rate and rhythm, normal S1 and S2 without murmur, rub or gallop. No carotid bruits or JVD appreciated ABDOMEN: Soft, nontender, not distended, normoactive bowel sounds, no guarding, no rebound, no masses. LOWER EXTREMITIES: No peripheral edema. NEUROLOGICAL: Motor strength 5/5 bilaterally, sensory intact, No pronator drift. No cranial nerve deficits. Unsteady gait Laboratory Results - last 24 hr 11/29/16 11/29/16 11/29/16 18:18 18:34 18:34 WBC 7.3 D RBC 4.20 Hgb 13.0 Hct 39.9 MCV 95.0 MCHC 32.6 RDW 13.3 Plt Count 181 MPV 10.4 Neutrophils % 88.0 H D Lymphocytes % 5.5 L D Monocytes % 6.2 Eosinophils % 0.1 D Basophils % 0.2 Differential Comment Slide scanned Platelet Estimate Adequate INR Sodium 139 Potassium 3.9 Chloride 100 Carbon Dioxide 25 Anion Gap 14 BUN 12 D Creatinine 0.8 D Creat Clearance w eGFR > 60 POC Glucometer 111.67712 Random Glucose 81 Lactic Acid Calcium 8.3 L Total Bilirubin 0.7 D AST 179 H D ALT 42 D Alkaline Phosphatase 52 Creatine Kinase 420 H D Creatine Kinase Index 0.8 CK-MB (CK-2) 3.190 CK-MB (CK-2) Rel Index Troponin I < 0.02 Total Protein 6.4 Albumin 3.7 Urine Color Urine Appearance Urine pH Urine Protein Urine Glucose (UA) Urine Ketones Urine Blood Urine Nitrite Urine Bilirubin Urine Urobilinogen Ur Leukocyte Esterase Urine RBC Urine WBC Ur Epithelial Cells Urine Bacteria Hyaline Casts Urine Mucus Opiates Screen Methadone Screen Barbiturate Screen Phencyclidine Screen Ur Amphetamines Screen MDMA (Ecstasy) Screen Benzodiazepines Screen Cocaine Screen U Marijuana (THC) Screen 11/29/16 11/29/16 11/29/16 18:34 18:34 19:00 WBC RBC Hgb Hct MCV MCHC RDW Plt Count MPV Neutrophils % Lymphocytes % Monocytes % Eosinophils % Basophils % Differential Comment Platelet Estimate INR Sodium Potassium Chloride Carbon Dioxide Anion Gap BUN Creatinine Creat Clearance w eGFR POC Glucometer Random Glucose Lactic Acid 4.0 H* Calcium Total Bilirubin AST ALT Alkaline Phosphatase Creatine Kinase Creatine Kinase Index CK-MB (CK-2) CK-MB (CK-2) Rel Index Cancelled Troponin I Total Protein Albumin Urine Color Yellow Urine Appearance Clear Urine pH 5.0 Urine Protein Negative Urine Glucose (UA) Negative Urine Ketones 1+ H Urine Blood Negative Urine Nitrite Positive Urine Bilirubin Negative Urine Urobilinogen Negative Ur Leukocyte Esterase 1+ H Urine RBC 3 Urine WBC 20 Ur Epithelial Cells Rare Urine Bacteria Rare Hyaline Casts 7 Urine Mucus Many Opiates Screen Methadone Screen Barbiturate Screen Phencyclidine Screen Ur Amphetamines Screen MDMA (Ecstasy) Screen Benzodiazepines Screen Cocaine Screen U Marijuana (THC) Screen 11/29/16 11/29/16 11/30/16 19:00 19:00 00:01 WBC RBC Hgb Hct MCV MCHC RDW Plt Count MPV Neutrophils % Lymphocytes % Monocytes % Eosinophils % Basophils % Differential Comment Platelet Estimate INR 1.02 Sodium Potassium Chloride Carbon Dioxide Anion Gap BUN Creatinine Creat Clearance w eGFR POC Glucometer Random Glucose Lactic Acid 1.9 Calcium Total Bilirubin AST ALT Alkaline Phosphatase Creatine Kinase Creatine Kinase Index CK-MB (CK-2) CK-MB (CK-2) Rel Index Troponin I Total Protein Albumin Urine Color Urine Appearance Urine pH Urine Protein Urine Glucose (UA) Urine Ketones Urine Blood Urine Nitrite Urine Bilirubin Urine Urobilinogen Ur Leukocyte Esterase Urine RBC Urine WBC Ur Epithelial Cells Urine Bacteria Hyaline Casts Urine Mucus Opiates Screen Positive Methadone Screen Negative Barbiturate Screen Negative Phencyclidine Screen Negative Ur Amphetamines Screen Negative MDMA (Ecstasy) Screen Negative Benzodiazepines Screen Negative Cocaine Screen Negative U Marijuana (THC) Screen Positive IMAGES: HEAD CT (11/29/16): Dense M2 segment of the left middle cerebral artery. No hemorrhage or masses. ASSESSMENT/PLAN: Patient is a 61 year old male with a PMHx of HTN, prior CVA who presented for LE weakness. Head CT was found to have dense segment of left MCA. Patient admitted for further monitoring management. Lower Extremity Weakness r/o CVA vs. TIA -Head CT negative -Resolution of symptoms -CTA negative -Loading dose ASA given. Will continue ASA 81 -Continue Lipitor 80 -BRAIN MRI/MRA and NECK MRA ordered -ECHO ordered -LIPID and A1C ordered -Neuro consult placed -HBO 30-45 degrees Elevated CPK and Lactic Acid -Patient reports laying on the floor for 7 hours -CPK >400, Lactic >4 with repeat 1.9 -Continue IV NS @125mls/hr Disposition- Admit to Telemetry. Neuro consult and MRI pending Visit type - Emergency Visit Emergency Visit: Yes ED Registration Date: 11/30/16 Care time: The patient presented to the Emergency Department on the above date and was hospitalized for further evaluation of their emergent condition. - New Patient This patient is new to me today: Yes Date on this admission: 12/01/16 - Critical Care Critical Care patient: No
[2016-11-30] MEDS ORDERED: ATORVASTATIN CA 80 MG TABLET (FP) PO ONE (05:16)
[2016-11-30] MEDS ORDERED: ASPIRIN 81 MG CHEWABLE TABLETS PO ONE (05:16)
--- NOTE | 2016-11-30 05:21 | HP ---
CHIEF COMPLAINT: Fell PCP: Dr. Snider HISTORY OF PRESENT ILLNESS: 61M with PMH of HCV, HTN, chronic back pain who presents after falling off chair this AM following sudden onset of diaphoresis and "shaking". He was at his US[employer] when he reports falling off his chair onto the floor. He describes hitting his head with no LOC. While on the floor, he could not move any of his extremities, and felt "paralyzed". He described "forcing myself to sleep", and laid on the floor for 5hours. A nephew found him at that time, and stated that his speech was slurred and EMS was called. The patient described two prior similar episodes of slurred speech and extremity weakness within the past year. At baseline, he has R leg weakness and ambulates with a cane. The patient states he has had non-radiating, focal chest pain and tightness over his left chest for approximately 1 week. The pain lasts 30-45min, and occurs only once per day with a severity of 9.5/10. There were no precipitating, alleviating or aggravating factors identified. He was BIBEMS, and a stroke protocol was initiated in the ED. A non-contrast CT was completed, which showed increased hyperattenuation in the M2 region of the MCA. He was admitted to Med/Surg for futher CVA work-up. 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 Ambulates with cane at baseline. Smoking: Never Alcohol: Occasional Drugs: Denies (Utox + marijuana/THC) Family History: DM (mother, brother, and four sisters) Allergies: Penicillins Allergy (Severe, Verified 11/29/16 17:22) Swelling patient states swelling of body and face. HOME MEDICATIONS: Lipitor 40mg PO daily Amlodipine 10 mg PO daily Oxycodone 20mg PO daily PRN REVIEW OF SYSTEMS CONSTITUTIONAL: Absent: fever, chills, diaphoresis, generalized weakness, malaise, loss of appetite, weight change HEENT: Absent: rhinorrhea, nasal congestion, throat pain, throat swelling, difficulty swallowing, mouth swelling, ear pain, eye pain, visual changes CARDIOVASCULAR: +chest pain Absent: syncope, palpitations, irregular heart rate, lightheadedness, peripheral edema RESPIRATORY: Absent: cough, shortness of breath, dyspnea with exertion, orthopnea, wheezing, stridor, hemoptysis GASTROINTESTINAL:Absent: abdominal pain, abdominal distension, nausea, vomiting , diarrhea, constipation, melena, hematochezia GENITOURINARY: Absent: dysuria, frequency, urgency, hesitancy, hematuria, flank pain, genital pain MUSCULOSKELETAL: Absent: myalgia, arthralgia, joint swelling, back pain, neck pain SKIN: Absent: rash, itching, pallor HEMATOLOGIC/IMMUNOLOGIC: Absent: easy bleeding, easy bruising, lymphadenopathy, frequent infections ENDOCRINE:Absent: unexplained weight gain, unexplained weight loss, heat intolerance, cold intolerance NEUROLOGIC: See HPI PHYSICAL EXAMINATION Vital Signs - 24 hr 11/29/16 11/29/16 11/29/16 17:18 19:11 23:05 Temperature 97.4 F L 98.8 F Pulse Rate 70 Pulse Rate [ 70 80 Left] Respiratory 20 17 16 Rate Blood Pressure 121/81 Blood Pressure 126/79 118/75 [Left] O2 Sat by Pulse 100 98 100 Oximetry (%) 11/30/16 01:20 Temperature 99.1 F Pulse Rate Pulse Rate [ 70 Left] Respiratory 16 Rate Blood Pressure Blood Pressure 123/74 [Left] O2 Sat by Pulse 96 Oximetry (%) GENERAL: Awake, alert, and fully oriented, in no acute distress. HEAD: Normal with no signs of trauma. EYES: Pupils equal, round and reactive to light, extraocular movements intact, sclera anicteric, conjunctiva clear. EARS, NOSE, THROAT: Oropharynx clear without exudates. Moist mucous membranes. NECK: Normal range of motion, supple without lymphadenopathy, JVD, or masses. LUNGS: Breath sounds equal, clear to auscultation bilaterally. No wheezes, and no crackles. No accessory muscle use. HEART: Regular rate and rhythm, normal S1 and S2 without murmur, rub or gallop. ABDOMEN: Soft, nontender, not distended, normoactive bowel sounds, no guarding, no rebound, no masses. No hepatomegaly or splenomegaly. MUSCULOSKELETAL: Normal range of motion at all joints. No bony deformities or tenderness. No CVA tenderness. LOWER EXTREMITIES: 2+ pulses, warm, well-perfused. No calf tenderness. No peripheral edema. NEUROLOGICAL: Cranial nerves II-XII intact. Normal speech. LLL 4/5 strength, all other extremities 5/5 strength. No pronator drift, negative Romberg. No dysmetria or dysdiadochokinesia. Gait unstable, difficulty ambulating heel-to- toe. PSYCHIATRIC: Cooperative. Good eye contact. Appropriate mood and affect. SKIN: Warm, dry, normal turgor, no rashes or lesions noted Laboratory Results - last 24 hr 11/29/16 11/29/16 11/29/16 18:18 18:34 18:34 WBC 7.3 D RBC 4.20 Hgb 13.0 Hct 39.9 MCV 95.0 MCHC 32.6 RDW 13.3 Plt Count 181 MPV 10.4 Neutrophils % 88.0 H D Lymphocytes % 5.5 L D Monocytes % 6.2 Eosinophils % 0.1 D Basophils % 0.2 Differential Comment Slide scanned Platelet Estimate Adequate INR Sodium 139 Potassium 3.9 Chloride 100 Carbon Dioxide 25 Anion Gap 14 BUN 12 D Creatinine 0.8 D Creat Clearance w eGFR > 60 POC Glucometer [id number] Random Glucose 81 Lactic Acid Calcium 8.3 L Total Bilirubin 0.7 D AST 179 H D ALT 42 D Alkaline Phosphatase 52 Creatine Kinase 420 H D Creatine Kinase Index 0.8 CK-MB (CK-2) 3.190 CK-MB (CK-2) Rel Index Troponin I < 0.02 Total Protein 6.4 Albumin 3.7 Urine Color Urine Appearance Urine pH Urine Protein Urine Glucose (UA) Urine Ketones Urine Blood Urine Nitrite Urine Bilirubin Urine Urobilinogen Ur Leukocyte Esterase Urine RBC Urine WBC Ur Epithelial Cells Urine Bacteria Hyaline Casts Urine Mucus Opiates Screen Methadone Screen Barbiturate Screen Phencyclidine Screen Ur Amphetamines Screen MDMA (Ecstasy) Screen Benzodiazepines Screen Cocaine Screen U Marijuana (THC) Screen 11/29/16 11/29/16 11/29/16 18:34 18:34 19:00 WBC RBC Hgb Hct MCV MCHC RDW Plt Count MPV Neutrophils % Lymphocytes % Monocytes % Eosinophils % Basophils % Differential Comment Platelet Estimate INR Sodium Potassium Chloride Carbon Dioxide Anion Gap BUN Creatinine Creat Clearance w eGFR POC Glucometer Random Glucose Lactic Acid 4.0 H* Calcium Total Bilirubin AST ALT Alkaline Phosphatase Creatine Kinase Creatine Kinase Index CK-MB (CK-2) CK-MB (CK-2) Rel Index Cancelled Troponin I Total Protein Albumin Urine Color Yellow Urine Appearance Clear Urine pH 5.0 Urine Protein Negative Urine Glucose (UA) Negative Urine Ketones 1+ H Urine Blood Negative Urine Nitrite Positive Urine Bilirubin Negative Urine Urobilinogen Negative Ur Leukocyte Esterase 1+ H Urine RBC 3 Urine WBC 20 Ur Epithelial Cells Rare Urine Bacteria Rare Hyaline Casts 7 Urine Mucus Many Opiates Screen Methadone Screen Barbiturate Screen Phencyclidine Screen Ur Amphetamines Screen MDMA (Ecstasy) Screen Benzodiazepines Screen Cocaine Screen U Marijuana (THC) Screen 11/29/16 11/29/16 11/30/16 19:00 19:00 00:01 WBC RBC Hgb Hct MCV MCHC RDW Plt Count MPV Neutrophils % Lymphocytes % Monocytes % Eosinophils % Basophils % Differential Comment Platelet Estimate INR 1.02 Sodium Potassium Chloride Carbon Dioxide Anion Gap BUN Creatinine Creat Clearance w eGFR POC Glucometer Random Glucose Lactic Acid 1.9 Calcium Total Bilirubin AST ALT Alkaline Phosphatase Creatine Kinase Creatine Kinase Index CK-MB (CK-2) CK-MB (CK-2) Rel Index Troponin I Total Protein Albumin Urine Color Urine Appearance Urine pH Urine Protein Urine Glucose (UA) Urine Ketones Urine Blood Urine Nitrite Urine Bilirubin Urine Urobilinogen Ur Leukocyte Esterase Urine RBC Urine WBC Ur Epithelial Cells Urine Bacteria Hyaline Casts Urine Mucus Opiates Screen Positive Methadone Screen Negative Barbiturate Screen Negative Phencyclidine Screen Negative Ur Amphetamines Screen Negative MDMA (Ecstasy) Screen Negative Benzodiazepines Screen Negative Cocaine Screen Negative U Marijuana (THC) Screen Positive Imaging: Head CT w/o contrast 11/29/16 18:23: Impression: "No significant interval change or acute intracranial pathology is identified. Correlate clinically to determine further evaluation and follow-up." Head CTA 11/30/16 03:08: Impression "Patent major arterial vessels of the [place]. Within the limitation of examination, no aneurysm is seen. No evidence of intracranial enhancing lesions, AVM. No CT evidence of acute territorial ischemic changes." ASSESSMENT/PLAN: 61yo man with h/o HCV, HTN, and likely prior CVAs who presents following an episode of lower and upper extremity weakness and witnessed slurred speech, and admitted for TIA vs CVA r/o. #TIA vs CVA: NIHSS 0 -MRI pending -Neuro consulted: appreciate recommendations -Loading dose ASA 324mg given in ED, start ASA 81 mg PO daily -Lipitor 80mg PO daily -Neck MRA -A1C pending -ECHO pending -EKG pending -Troponin pending -Coag studies pending -Neuro monitoring q4h -Cardiac monitoring q4h #asx pyuria -Received 1x ciprofloxacin in ED -No additional antibiotics are not indicated for asymptomatic men #F/E/N -NS @ 100cc/hr -Monitor electrolytes -Na restricted diet #DVT prophylaxis -Heparin 5000U SQ Q8h #Disposition -Admit to telemetry -FULL Code d/w team Karla Reardon MD Visit type - Emergency Visit Emergency Visit: Yes ED Registration Date: 11/30/16 Care time: The patient presented to the Emergency Department on the above date and was hospitalized for further evaluation of their emergent condition. - New Patient This patient is new to me today: Yes Date on this admission: 11/30/16 - Critical Care Critical Care patient: No
[2016-11-30] MEDS ORDERED: ASPIRIN 325 MG TABLET ONE (05:31)
[2016-11-30] MEDS ORDERED: ATORVASTATIN CA 80 MG TABLET (FP) ONE (05:32)
--- NOTE | 2016-11-30 07:04 | PN ---
Teaching Attending Note Name of Resident: Karla Reardon ATTENDING PHYSICIAN STATEMENT I saw and evaluated the patient. I reviewed the resident's note and discussed the case with the resident. I agree with the resident's findings and plan as documented. SUBJECTIVE:Brought to ED s/p fall at home with severe weakness that patient was unable to stand up. OBJECTIVE: Gen: A&Ox3, cooperative HEENT: symmetrical face, no facial droop or flattening of nasolabial folds, PERRLA, EOMI CVS: RRR, s1, s2 Lung: CTA Back lumbar and sacral paraspinal tenderness Ext: no edema, 2+ pulses, unsteady gait Neuro: no focal deficit, CN2-12 intact ASSESSMENT AND PLAN: R/O TIA/CVA, and rhabdomyolysis palns as documneted in H&P. MRI/MRA brain and neck, cva workup and neurology consult. Rehab evaluation.
[2016-11-30] MEDS ORDERED: SODIUM CHLORIDE 1,000 ML IV SCH (07:30)
[2016-11-30 08:41] LABS: INR 1.11 (0.82-1.09); PROTHROMBIN TIME (PATIENT) 12.2 SEC (9.98-11.88)
[2016-11-30 09:00] LABS: TROPONIN I 0.02 ng/ml (0.00-0.05)
[2016-11-30 09:02] LABS: CHOLESTEROL 136 mg/dL (50-200); LDL CHOLESTEROL (ONLY SJRH) 50 mg/dL (5-100)
[2016-11-30] MEDS: ASPIRIN 81 MG CHEWABLE TABLETS PO SCH (11:18)
--- NOTE | 2016-11-30 11:22 | EKG ---
Test Reason : Blood Pressure : / mmHG Vent. Rate : 067 BPM Atrial Rate : 067 BPM P-R Int : 158 ms QRS Dur : 094 ms QT Int : 442 ms P-R-T Axes : 074 077 062 degrees QTc Int : 467 ms NORMAL SINUS RHYTHM NORMAL ECG WHEN COMPARED WITH ECG OF 30-AUG-2016 06:39, NO SIGNIFICANT CHANGE WAS FOUND Confirmed by BRITTANI WOLFE MD ([id number]) on 11/30/2016 11:21:38 AM Referred By: Confirmed By:BRITTANI WOLFE MD
[2016-11-30] MEDS ORDERED: CYCLOBENZAPRINE HCL 10 MG TABLET (FP) PO PRN (14:06)
[2016-11-30] MEDS ORDERED: traMADol HCL 50 MG TABLET PO PRN (14:07)
--- NOTE | 2016-11-30 15:06 | CONSULT ---
Consult - text type - Consultation Consultation Note: Neurosurgery consultation Asked to see this 61 year old male who fell out of bed on the morning of November 29 and was unable to get up or move since his legs and Right side "were not working." Over the past 24 hours, his neurological function has largely returned to his baseline of bilateral upper extremity weakness with Right hand paresthesias. He does feel that his Right arm is not quite at his baseline. He has been complaining of Right hand paresthesias since before this incident. CT Head was generally unremarkable and the official report did not describe any acute pathology which would warrant acute Neurosurgical intervention. The patient has a history of C3-6 Anterior cervical decompression and fusion and MRI from one year ago suggests that he is well fused over these levels and also decompressed at these levels although there is spondylosis above and below (C23 and C67) with hypertrophy of the posterior longitudinal ligament, osteophytes and disc bulges as well as hypertrophic facets/ligamentum flavum which effaces the CSF ventrally and dorsally and deforms the cervical spinal cord. The spinal cord is atrophic over the previously operated levels and there is myelomalacia in a snake-eyes pattern suggestive of longstanding vascular insufficiency/ chronic compression. I am concerned that the patient was unable to move for almost 6 hours and has persisting hand symptoms. This is suggestive of a central cord syndrome. I agree with plans for a new MRI Cervical. CVA/TIA must be excluded prior to proceeding (although CTA is negative for thrombus and CT Head doesn't suggest acute stroke by report) The patient relates a weight loss of 10 pounds over the past 3 months without clear etiology. My understanding that a workup for this is pending. Most likely, the patient would benefit from Exploration of his spinal fusion and C2-7 Laminectomies with Synagogue of lordosis and reconstruction with lateral mass instrumentation. Once the care team is in agreement that he does not have an occult malignancy/ nutritional/GI abnormality and there is no suggestion of acute stroke in evolution or any other contraindication to surgery, we may review the new MRI and consider the role of Neurosurgical intervention.
--- NOTE | 2016-11-30 17:01 | PN ---
Physical Exam: SUBJECTIVE: Patient seen and examined this AM. Patient was awake, alert, oriented. Patient told me he was basically back to baseline. Pt complains of continued neck pain, otherwise no fevers, no chills, no SOB, no CP. Patient does endorse paresthesias of L hand, sometimes entire left arm. OBJECTIVE: Vital Signs Period Temp Pulse Resp BP Sys/Greenberg Pulse Ox Last 24 Hr 98.1 F-98.9 F 65-80 16-20 124-151/77-89 98-100 GENERAL: The patient is awake, alert, and fully oriented, in no acute distress. EYES: PERRL, extraocular movements intact NECK: Limited ROM, tender LUNGS: Breath sounds equal, clear to auscultation bilaterally, no wheezes, no crackles, no accessory muscle use. HEART: Regular rate and rhythm, S1, S2 without murmur, rub or gallop. ABDOMEN: Soft, nontender, nondistended, normoactive bowel sounds EXTREMITIES: 2+ pulses, warm, well-perfused, no edema. NEUROLOGICAL: Full neuro exam was performed. Mental status AAOx3. No facial droop, no dysarthria. Sensation bilaterally are equal and intact. Muscle strength is 4/5 in LUE, otherwise all other limbs are 5/5. Reflexes 2+ throughout. Cranial nerves were examined: PERRLA, EOMi, Facial movements symmetrical. Laboratory Results - last 24 hr 11/30/16 11/30/16 11/30/16 08:20 08:20 08:20 INR 1.11 Hemoglobin A1c % Creatine Kinase 368 H Creatine Kinase Index 0.6 CK-MB (CK-2) 2.258 CK-MB (CK-2) Rel Index Troponin I 0.02 Triglycerides 81 D Cholesterol 136 Total LDL Cholesterol 50 HDL Cholesterol 94 H Blood Type 11/30/16 11/30/16 11/30/16 08:20 08:20 08:23 INR Hemoglobin A1c % 5.2 Creatine Kinase Creatine Kinase Index CK-MB (CK-2) CK-MB (CK-2) Rel Index Cancelled Troponin I Triglycerides Cholesterol Total LDL Cholesterol HDL Cholesterol Blood Type O POSITIVE Active Medications Generic Name Dose Route Start Last Admin Trade Name Freq PRN Reason Stop Dose Admin Aspirin 81 mg 11/30/16 10:00 11/30/16 11:18 Asa - PO 81 mg DAILY CIERRA Administration Atorvastatin Calcium 40 mg 11/30/16 22:00 Lipitor - PO HS CIERRA Cyclobenzaprine HCl 5 mg 11/30/16 14:06 Flexeril - PO Q12H PRN BACK PAIN Sodium Chloride 1,000 mls @ 125 mls/hr 11/30/16 07:30 11/30/16 08:30 Normal Saline - IV 125 mls/hr ASDIR CIERRA Administration Tramadol HCl 25 mg 11/30/16 14:07 Ultram - PO Q12H PRN BACK PAIN ASSESSMENT/PLAN: 61yo man with h/o prior TIAs, HTN, Hep C presents with lower and upper extremity weakness and witnessed slurred speech who was admitted for r/o CVA, likely another TIA #Transient Ischemic Attack - Patient presented with stroke like symptoms that mostly resolved within 24 hours, NIHSS 0 - When patient presented to ER, stroke protocol initiated: Non-con CT shows no hemorrhage, ASA 325 PO, Atorvastatin 80mg PO once, CTA head negative, MRA neck pending, 2 negative troponins, INR WNL, - Continue ASA 81mg PO QD and Lipitor 80mg PO QD - Risk factors assessed: A1C is 5.2, lipid panel WNL, echo is WNL, carotid U/S 1 year ago shows no stenotic areas - Admited to Tele, neuro monitoring Q4H - Neuro on board - Neurosurgery on board, patient told Neurosurgen Dr. Cheung that his L arm is not completely back to baseline, recommends consideration of CVA with further imaging #Paresthesia of R Hand - Patient has been having paresthesias for couple of months - Patient had C3-C6 anterior cervical decompression and fusion surgery in 2000 - MRI C spine in 2016 shows spondylosis, osteophytes, disc bulges which deforms the spinal cord; also shows spinal cord atrophy from vascular insufficiency - Neurosurgery saw patient, looked at old scans, b/c of history of paralysis for 6 hours and paresthesia, recommends new MRI cervical to check for central cord syndrome #Unintentional weight loss - Patient endorses a 10 pound unintentional weight loss for past 3 months, no clear etiology - Ordered thyroid studies #Asymptomatic Pyuria - Patient received 1x ciprofloxacin in ED, no additional antibiotics are not indicated for asymptomatic men #Low LDL - LDL under 50 consistent with hypolipoproteinemia, patient's LDL is 50 - Will continue to monitor #Elevated Creatine Kinase - CK on admission was 420 --> 368 - Could be due to statin induced myositis vs fall crush injury - Continue to monitor #Elevated Lactic Acid - resolved - On admission lactic acid was 4.0 --> now 1.9 - Could be due to muscle injury s/p fall #F/E/N - Fluids: not on fluids - Electrolytes: Monitor electrolytes - Diet: Na restricted diet #DVT prophylaxis - Heparin 5000 units SQ BID Visit type - Emergency Visit Emergency Visit: No - New Patient This patient is new to me today: No - Critical Care Critical Care patient: No - Discharge Referral Referred to [facility] Med P.C.: No
--- NOTE | 2016-11-30 20:55 | PN ---
Teaching Attending Note Name of Resident: Km Damon ATTENDING PHYSICIAN STATEMENT I saw and evaluated the patient. I reviewed the resident's note and discussed the case with the resident. I agree with the resident's findings and plan as documented. SUBJECTIVE: OBJECTIVE: Vital Signs Temperature 99.8 F H 11/30/16 17:00 Pulse Rate 64 11/30/16 17:00 Respiratory Rate 20 11/30/16 17:00 Blood Pressure 138/77 11/30/16 17:00 O2 Sat by Pulse Oximetry (%) 100 11/30/16 10:00 CBCD WBC 7.3 K/mm3 (4.0-10.0) D 11/29/16 18:34 RBC 4.20 M/mm3 (4.00-5.60) 11/29/16 18:34 Hgb 13.0 GM/dL (11.7-16.9) 11/29/16 18:34 Hct 39.9 % (35.4-49) 11/29/16 18:34 MCV 95.0 fl (80-96) 11/29/16 18:34 MCHC 32.6 g/dl (32.0-35.9) 11/29/16 18:34 RDW 13.3 % (11.9-15.9) 11/29/16 18:34 Plt Count 181 K/MM3 (134-434) 11/29/16 18:34 MPV 10.4 fl (7.5-11.1) 11/29/16 18:34 CMP Sodium 139 mmol/L (136-145) 11/29/16 18:34 Potassium 3.9 mmol/L (3.5-5.1) 11/29/16 18:34 Chloride 100 mmol/L (98-107) 11/29/16 18:34 Carbon Dioxide 25 mmol/L (21-32) 11/29/16 18:34 Anion Gap 14 (8-16) 11/29/16 18:34 BUN 12 mg/dL (7-18) D 11/29/16 18:34 Creatinine 0.8 mg/dL (0.7-1.3) D 11/29/16 18:34 Creat Clearance w eGFR > 60 (>60) 11/29/16 18:34 Random Glucose 81 mg/dL (74-106) 11/29/16 18:34 Calcium 8.3 mg/dL (8.5-10.1) L 11/29/16 18:34 Total Bilirubin 0.7 mg/dL (0.2-1.0) D 11/29/16 18:34 AST 179 U/L (15-37) H D 11/29/16 18:34 ALT 42 U/L (12-78) D 11/29/16 18:34 Alkaline Phosphatase 52 U/L (45-117) 11/29/16 18:34 Total Protein 6.4 g/dl (6.4-8.2) 11/29/16 18:34 Albumin 3.7 g/dl (3.4-5.0) 11/29/16 18:34 CARDIAC ENZYMES Creatine Kinase 368 IU/L (39-308) H 11/30/16 08:20 Troponin I 0.02 ng/ml (0.00-0.05) 11/30/16 08:20 Current Medications Generic Name Dose Route Start Last Admin Trade Name Freq PRN Reason Stop Dose Admin Aspirin 81 mg 11/30/16 10:00 11/30/16 11:18 Asa - PO 81 mg DAILY CIERRA Administration Atorvastatin Calcium 40 mg 11/30/16 22:00 Lipitor - PO HS CIERRA Cyclobenzaprine HCl 5 mg 11/30/16 14:06 Flexeril - PO Q12H PRN BACK PAIN Heparin Sodium (Porcine) 5,000 unit 11/30/16 22:00 Heparin - SQ BID CIERRA Sodium Chloride 1,000 mls @ 125 mls/hr 11/30/16 07:30 11/30/16 08:30 Normal Saline - IV 125 mls/hr ASDIR CIERRA Administration Tramadol HCl 25 mg 11/30/16 14:07 11/30/16 16:41 Ultram - PO 25 mg Q12H PRN Administration BACK PAIN Home Medications Medication Instructions Recorded NK [No Known Home Medication] 08/30/16 PE: per resident's note ASSESSMENT AND PLAN: Patient is a 61yo man with PMHx of prior neck surgery , presented to ED with TIA symptoms with paresthesia of Right hand , with hx of prior TIAs, HTN, Hep C. # TIA r/o CVA On ASA 81mg and Lipitor 40mg po daily , Last MRI was a year ago, will get neurosurgery involved since c/o having neck pain with Tingling sensation of Right hand , Dr. Cheung neurosurgeon to evaluate the patient discussed with ordered MRI of the neck to r/o for central cord syndrome # Weight loss Unintentional of 10 pounds for the past 3 months , will get TSH, FT4,FT3 to r/o Hyperthyroidism # Elevated Creatine Kinase IVF continue with CPK 420 --> 368 #Elevated Lactic Acid - resolved # Chronic back pain will give him flexeril and ultram prn DVT Px: Heparin
--- NOTE | 2016-11-30 21:19 | CONSULT ---
Consult - text type - Consultation Consultation Note: NEUROLOGY CONSULTATION is greatly appreciated: This 61 yo RH single man with h/o HTN and Hep C is s/p ACD in 2000 for cord compression. He did well until about 1 year ago when he began to experience slowly progressive deterioration in gait and balance culminating in an increasing number of falls over the last 3 mos associated with right leg paresthesia and urinary frequency and urgency. Yesterday, got up from his reclining chair and fell striking his head without loss of consciousness. On the floor he was unable to move his arms and legs which gradually improved over 4-6 hours. MRI of brain (reviewed): Normal with scattered subcortical microvascular changes. MRI of Cervical spine (reviewed): s/p fusion of C3, C4, C5 (+/- C6) with angulation at C5C6 or C6C7 (the level below the fusion) with HNP at this level which, in conjunction with posterior facet hypertrophy, results in severe spinal stenosis and cord compression. GERALDO: Decreased neck ROM. NEURO: MS, Speech, CN II-XII: Normal Motor: Normal shoulder abduction. Biceps 4+/5 R and 4/5 L. Triceps and finger extensors 4-/5. Areflexic in arms. Normal leg strength but increased reflexes. Upgoing toes. Coord: No FTN Dystaxia Sensory: Decreased vibration to mid-calf. Romberg+ Gait: Wide-based unsteady. 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 SUGGEST: Check B12, Cu++, HTLV-1 Anterior cervical discectomy at C5C6 for decompression and stabilization. Will discuss with Dr. Clark whose erudite consultation is read and appreciated. Thank you very much, Guillaume Rodriguez MD
[2016-11-30] MEDS ORDERED: ATORVASTATIN CA 80 MG TABLET (FP) PO SCH (22:00)
[2016-11-30] MEDS ORDERED: CYCLOBENZAPRINE HCL 10 MG TABLET (FP) PO SCH (22:00)
[2016-11-30] MEDS ORDERED: ATORVASTATIN CA 40 MG TABLET (FP) PO SCH (22:00)
[2016-11-30] MEDS ORDERED: traMADol HCL 50 MG TABLET PO SCH (22:00)
[2016-11-30] MEDS: HEPARIN NA (PORCINE) 5,000 UNITS/ML 1ML VIAL SQ SCH (22:46)
[2016-11-30] MEDS ORDERED: oxyCODONE HCL 5 MG TABLET PO ONE (23:02)
[2016-12-01] MEDS ORDERED: oxyCODONE HCL 5 MG TABLET ONE (00:50)
[2016-12-01 07:30] LABS: MCH 31.5 pg (25.7-33.7); MCHC 33.5 g/dl (32.0-35.9); MEAN CELL VOLUME 93.9 fl (80-96); MEAN PLT VOLUME 10.6 fl (7.5-11.1); PLATELET COUNT 147 K/MM3 (134-434); RDW 13.4 % (11.9-15.9)
[2016-12-01 07:54] VITALS: BP 151/91; PULSE 55; TEMP 98.2
[2016-12-01 07:59] LABS: ALBUMIN 3.3 g/dl (3.4-5.0); ANION GAP 9 (8-16); CALCIUM 8.1 mg/dL (8.5-10.1); CO2 29 mmol/L (21-32); GLUCOSE,RANDOM 96 mg/dL (74-106)
[2016-12-01 08:11] LABS: ALK PHOS 41 U/L (45-117); BILIRUBIN,TOTAL 0.9 mg/dL (0.2-1.0); CREATININE 0.5 mg/dL (0.7-1.3); SGOT/AST 73 U/L (15-37); SGPT/ALT 33 U/L (12-78); TOT PROT 5.7 g/dl (6.4-8.2)
[2016-12-01 08:35] LABS: FREE T4 0.99 ng/dl (0.76-1.16); THYROID STIMULATING HORMONE 1.33 uIU/ml (0.358-3.74)
--- NOTE | 2016-12-01 08:56 | PN ---
Physical Exam: Internal Medicine Chemical Technician Note SUBJECTIVE: Patient seen and examined this AM. Patient endorses no CP, fever, SOB, chills. Patient still complains of neck adn back pain. Given dose of Oxy last night. Still endorses paresthesias in LUE. Spoke to nurse about DVT prophylaxis, if patient is on heparin SQ, does not need SCds. Will order PT. OBJECTIVE: Vital Signs Period Temp Pulse Resp BP Sys/Greenberg Pulse Ox Last 24 Hr 97.8 F-99.8 F 55-80 18-20 119-151/76-91 100-100 GENERAL: The patient is awake, alert, and fully oriented, in no acute distress. EYES: PERRL, extraocular movements intact NECK: Limited ROM, tender LUNGS: Breath sounds equal, clear to auscultation bilaterally, no wheezes, no crackles, no accessory muscle use. HEART: Regular rate and rhythm, S1, S2 without murmur, rub or gallop. ABDOMEN: Soft, nontender, nondistended, normoactive bowel sounds EXTREMITIES: 2+ pulses, warm, well-perfused, no edema. NEUROLOGICAL: Patient continues to have Mental status AAOx3. No facial droop, no dysarthria. Sensation bilaterally are equal and intact. PERRLA, EOMi, Laboratory Results - last 24 hr 11/30/16 11/30/16 11/30/16 08:20 08:20 08:20 WBC RBC Hgb Hct MCV MCHC RDW Plt Count MPV Sodium Potassium Chloride Carbon Dioxide Anion Gap BUN Creatinine Creat Clearance w eGFR Random Glucose Hemoglobin A1c % 5.2 Calcium Total Bilirubin AST ALT Alkaline Phosphatase Creatine Kinase 368 H Creatine Kinase Index 0.6 CK-MB (CK-2) 2.258 CK-MB (CK-2) Rel Index Troponin I 0.02 Total Protein Albumin Triglycerides 81 D Cholesterol 136 Total LDL Cholesterol 50 HDL Cholesterol 94 H TSH Free T4 Blood Type 11/30/16 11/30/16 12/01/16 08:20 08:23 06:07 WBC RBC Hgb Hct MCV MCHC RDW Plt Count MPV Sodium Potassium Chloride Carbon Dioxide Anion Gap BUN Creatinine Creat Clearance w eGFR Random Glucose Hemoglobin A1c % Calcium Total Bilirubin AST ALT Alkaline Phosphatase Creatine Kinase Creatine Kinase Index CK-MB (CK-2) CK-MB (CK-2) Rel Index Cancelled Troponin I Total Protein Albumin Triglycerides Cholesterol Total LDL Cholesterol HDL Cholesterol TSH 1.33 D Free T4 0.99 Blood Type O POSITIVE 12/01/16 12/01/16 06:07 06:07 WBC 4.0 D RBC 3.95 L Hgb 12.4 Hct 37.1 MCV 93.9 MCHC 33.5 RDW 13.4 Plt Count 147 MPV 10.6 Sodium 143 Potassium 3.4 L Chloride 105 Carbon Dioxide 29 Anion Gap 9 BUN 5 L D Creatinine 0.5 L D Creat Clearance w eGFR > 60 Random Glucose 96 Hemoglobin A1c % Calcium 8.1 L Total Bilirubin 0.9 D AST 73 H D ALT 33 D Alkaline Phosphatase 41 L D Creatine Kinase 328 H Creatine Kinase Index CK-MB (CK-2) CK-MB (CK-2) Rel Index Troponin I Total Protein 5.7 L Albumin 3.3 L Triglycerides Cholesterol Total LDL Cholesterol HDL Cholesterol TSH Free T4 Blood Type Active Medications Generic Name Dose Route Start Last Admin Trade Name Freq PRN Reason Stop Dose Admin Aspirin 81 mg 11/30/16 10:00 11/30/16 11:18 Asa - PO 81 mg DAILY CIERRA Administration Atorvastatin Calcium 40 mg 11/30/16 22:00 11/30/16 22:46 Lipitor - PO 40 mg HS CIERRA Administration Cyclobenzaprine HCl 5 mg 11/30/16 14:06 Flexeril - PO Q12H PRN BACK PAIN Heparin Sodium (Porcine) 5,000 unit 11/30/16 22:00 11/30/16 22:46 Heparin - SQ 5,000 unit BID CIERRA Administration Tramadol HCl 25 mg 11/30/16 14:07 11/30/16 16:41 Ultram - PO 25 mg Q12H PRN Administration BACK PAIN ASSESSMENT/PLAN: 61yo man with h/o prior cervical spinal surgery, HTN, Hep C presents with lower and upper extremity weakness and witnessed slurred speech who was admitted for r /o TIA and CVA. Found to have significant cervical spondylosis on imaging. #Transient Ischemic Attack - ruled out - Patient presented with stroke like symptoms that mostly resolved within 24 hours, NIHSS 0 - When patient presented to ER, stroke protocol initiated: Non-con CT shows no hemorrhage, ASA 325 PO, Atorvastatin 80mg PO once, CTA head negative, MRA neck pending, 2 negative troponins, INR WNL - Brain MRI showed no acute intracranial pathology - Risk factors assessed: A1C is 5.2, lipid panel WNL, echo is WNL, carotid U/S 1 year ago shows no stenotic areas - Patient was on ASA 81mg PO QD and Lipitor 80mg PO QD until we ruled out TIA and CVA. Patient will only now be continued on ASA 81mg # Cervical Spondylosis - Patient has been having RUE paresthesias for couple of months - Patient had C3-C6 anterior cervical decompression and fusion surgery in 2000 - MRI C spine in 2016 shows spondylosis, osteophytes, disc bulges which deforms the spinal cord; also shows spinal cord atrophy from vascular insufficiency - Neurosurgery saw patient, looked at old scans, and spoke to patient in detail about cervical spondylosis and possibility of surgery (exploration of spinal fusion and C2-C7 laminectomies with [employer] of lordosis and reconstruction with lateral mass instrumentation). Patient was informed that if he did not have surgery, he would likely not improve. The patient understood risks and benefits, said that he was not ready to think about surgery at the moment, but will followup with Neurosurgery. #Unintentional weight loss - Patient endorses a 10 pound unintentional weight loss for past 3 months, no clear etiology, patient states that he has had loss of appetite for 3-4 months - Thyroid studies are WNL - Patient to followup with primary care doctor #Asymptomatic Pyuria - Patient received 1x ciprofloxacin in ED, no additional antibiotics are not indicated for asymptomatic men #Low LDL - LDL under 50 consistent with hypolipoproteinemia, patient's LDL is 50 - Patient to followup with primary care doctor #Elevated Creatine Kinase - resolving - CK on admission was 420 --> 368 --> 328 - Could be due to statin induced myositis vs fall crush injury #Hypokalemia - Potassium is 3.4, ordered Mg for tomorrow #Elevated Lactic Acid - resolved - On admission lactic acid was 4.0 --> now 1.9 - Could be due to muscle injury s/p fall #F/E/N - Fluids: not on fluids - Electrolytes: Monitor electrolytes - Diet: Na restricted diet #DVT prophylaxis - Heparin 5000 units SQ BID Visit type - Emergency Visit Emergency Visit: No - New Patient This patient is new to me today: No - Critical Care Critical Care patient: No - Discharge Referral Referred to [facility] Med P.C.: No
[2016-12-01] MEDS: ASPIRIN 81 MG CHEWABLE TABLETS PO SCH (09:02)
[2016-12-01] MEDS: HEPARIN NA (PORCINE) 5,000 UNITS/ML 1ML VIAL SQ SCH (09:03)
[2016-12-01 09:42] LABS: MAGNESIUM 1.7 mg/dL (1.8-2.4)
[2016-12-01] MEDS ORDERED: MAGNESIUM SULF 50% (8.12 MEQ/2 ML-1 GM VIAL) IVPB ONE (10:30)
[2016-12-01] MEDS ORDERED: KETOROLAC TROMETHAMINE 15 MG/ML VIAL IVPUSH ONE (11:05)
[2016-12-01] MEDS ORDERED: POTASSIUM CHLORIDE TABS 20 MEQ TABLET.ER (FP) PO ONE (11:06)
--- NOTE | 2016-12-01 16:57 | PN ---
Teaching Attending Note Name of Resident: Km Damon ATTENDING PHYSICIAN STATEMENT I saw and evaluated the patient. I reviewed the resident's note and discussed the case with the resident. I agree with the resident's findings and plan as documented. SUBJECTIVE: Patient is feeling better, would like to go home. OBJECTIVE: Vital Signs Temperature 98.2 F 12/01/16 07:54 Pulse Rate 55 L 12/01/16 07:54 Respiratory Rate 20 12/01/16 08:00 Blood Pressure 151/91 12/01/16 07:54 O2 Sat by Pulse Oximetry (%) 100 12/01/16 08:00 PE: per resident's note CBCD WBC 4.0 K/mm3 (4.0-10.0) D 12/01/16 06:07 RBC 3.95 M/mm3 (4.00-5.60) L 12/01/16 06:07 Hgb 12.4 GM/dL (11.7-16.9) 12/01/16 06:07 Hct 37.1 % (35.4-49) 12/01/16 06:07 MCV 93.9 fl (80-96) 12/01/16 06:07 MCHC 33.5 g/dl (32.0-35.9) 12/01/16 06:07 RDW 13.4 % (11.9-15.9) 12/01/16 06:07 Plt Count 147 K/MM3 (134-434) 12/01/16 06:07 MPV 10.6 fl (7.5-11.1) 12/01/16 06:07 CMP Sodium 143 mmol/L (136-145) 12/01/16 06:07 Potassium 3.4 mmol/L (3.5-5.1) L 12/01/16 06:07 Chloride 105 mmol/L (98-107) 12/01/16 06:07 Carbon Dioxide 29 mmol/L (21-32) 12/01/16 06:07 Anion Gap 9 (8-16) 12/01/16 06:07 BUN 5 mg/dL (7-18) L D 12/01/16 06:07 Creatinine 0.5 mg/dL (0.7-1.3) L D 12/01/16 06:07 Creat Clearance w eGFR > 60 (>60) 12/01/16 06:07 Random Glucose 96 mg/dL (74-106) 12/01/16 06:07 Calcium 8.1 mg/dL (8.5-10.1) L 12/01/16 06:07 Total Bilirubin 0.9 mg/dL (0.2-1.0) D 12/01/16 06:07 AST 73 U/L (15-37) H D 12/01/16 06:07 ALT 33 U/L (12-78) D 12/01/16 06:07 Alkaline Phosphatase 41 U/L (45-117) L D 12/01/16 06:07 Total Protein 5.7 g/dl (6.4-8.2) L 12/01/16 06:07 Albumin 3.3 g/dl (3.4-5.0) L 12/01/16 06:07 CARDIAC ENZYMES Creatine Kinase 328 IU/L (39-308) H 12/01/16 06:07 Troponin I 0.02 ng/ml (0.00-0.05) 11/30/16 08:20 Home Medications Medication Instructions Recorded Aspirin [ASA -] 81 mg PO DAILY #30 tab.chew 12/01/16 Cyclobenzaprine HCl 5 mg PO HS #15 tablet 12/01/16 Evaluate for stroke. MRI of the brain without intravenous contrast A noncontrast MRI of the brain was performed with multiplanar T1 and T2-weighted images obtained. There is akzy-vf-tdflltqn volume loss and ventricular dilatation. Notes made of a cavum septum pellucidum and vergae. No mass lesion, acute infarct or intracranial hemorrhage is identified. There are minimal chronic microvascular ischemic changes. The craniocervical junction appears unremarkable. There is anterior fusion of C3 and C4 vertebral bodies included portion of the upper cervical spine. Flow voids are present within the central intracranial arteries circulation. No suspicious bone marrow abnormal signal intensity is a right. Impression: Hfjd-cl-uycdmsaf volume loss without evidence of acute intracranial pathology. MRA of the brain. A noncontrast MRA of the brain was performed utilizing 3-D aspi-no-tlhhfj technique. Source and MIP images were reviewed. In the anterior circulation, no gross focal stenosis, aneurysm or major artery cutoff is seen. In the posterior circulation, the vertebrobasilar junction, basilar artery and tip appear unremarkable. Both posterior cerebral and superior cerebellar arteries appear unremarkable. Impression: No gross focal stenosis, aneurysm, major artery cutoff or vascular malformation is identified within the central intracranial arterial circulation. MRA of the neck without intravenous contrast 2D and 3-D time of flight technique was utilized. Source and MIP images were reviewed . The vertebral arteries appear unremarkable. The common carotid artery and its bifurcation appears unremarkable without evidence of stenosis, bilaterally. Impression: Unremarkable examination. There is no evidence of hemodynamically significant stenosis at the common carotid bifurcation, bilaterally. MRI of the brain without intravenous contrast A noncontrast MRI of the brain was performed with multiplanar T1 and T2-weighted images obtained. There is mild -to-moderate volume loss and ventricular dilatation. Notes made of a cavum septum pellucidum and vergae. No mass lesion, acute infarct or intracranial hemorrhage is identified. There are minimal chronic microvascular ischemic changes. The craniocervical junction appears unremarkable. There is anterior fusion of C3 and C4 vertebral bodies included portion of the upper cervical spine. Flow voids are present within the central intracranial arteries circulation. No suspicious bone marrow abnormal signal intensity is a right. Impression: Alla-xj-ckosfrad volume loss without evidence of acute intracranial pathology. MRA of the brain. A noncontrast MRA of the brain was performed utilizing 3-D lkoo-oz-zkxccr technique. Source and MIP images were reviewed. In the anterior circulation, no gross focal stenosis, aneurysm or major artery cutoff is seen. In the posterior circulation, the vertebrobasilar junction, basilar artery and tip appear unremarkable. Both posterior cerebral and superior cerebellar arteries appear unremarkable. Impression: No gross focal stenosis, aneurysm, major artery cutoff or vascular malformation is identified within the central intracranial arterial circulation. MRA of the neck without intravenous contrast 2D and 3-D time of flight technique was utilized. Source and MIP images were reviewed . The vertebral arteries appear unremarkable. The common carotid artery and its bifurcation appears unremarkable without evidence of stenosis, bilaterally. Impression: Unremarkable examination. There is no evidence of hemodynamically significant stenosis at the common carotid bifurcation, bilaterally. CTA OF THE BRAIN C+. Clinical formation. Weakness Findings. There is no evidence of intracranial enhancing lesions, vascular malformation. No evidence of acute territory ischemic changes. Its of edema midline shift, or hydrocephalus. The cortical sulci sylvian fissures perimesencephalic cisterns are not effaced. A normal variant cavum septum lucidum, vergae, vellum interpositum. The internal carotid arteries are patent. Bilateral ACAs and MCAs are patent The visualized bilateral vertebral arteries, basilar artery and materials planning analyst are patent. Normal contour of the arterial vessels Impression. Patent major arterial vessels of the [place]. Within the limitation of examination, no aneurysm is seen. No evidence of intracranial enhancing lesions, AVM. No CT evidence of acute territorial ischemic changes. Comparison study MRI of the cervical spine 07/17/2015. Findings. No abnormality seen at the pontomedullary junction region. Normal signal intensity of the visualized brainstem. cerebellum. Straightening of the cervical spine is seen on the sagittal images. C2-C3. Loss of disc space height. Disc desiccation.. Broad-based disc protrusion, or disc osteophyte complex encroaching on the ventral subarachnoid space. Thickened ligamentum flavum encroaching of the dorsal subarachnoid space. Spinal stenosis. Osteoarthritis of uncovertebral joints. C3-C6. Straightening of the cervical spine. Status post anterior cervical fusion. Significant cord atrophy with intramedullary increased signal, unchanged in comparison to July 17, 2015. C6-C7. Disc desiccation. Loss of disc space height. Broad-based disc protrusion encroaching ventral subarachnoid space. Thickened ligamentum flavum encroaching of the dorsal subarachnoid space. Spinal stenosis. Facet joint arthropathy. Osteoarthritis of uncovertebral joints. Bilateral neural foramina stenosis. No disc herniation seen in the upper thoracic spine. Normal signal intensity of upper thoracic cord. No pathological bone marrow replacement is seen. No evidence of acute compression deformities. No evidence of bone marrow edema. Flow-void is seen in the vertebral arteries, carotid arteries. No evidence of prevertebral soft tissue swelling. Impression. C3-C6. Status post anterior cervical, fusion of vertebral bodies. Magnetic susceptibility artifacts from the hardware. Cord atrophy with intramedullary increased signal intensity, unchanged from July 17, 2015. C2-C3, C6-C7: Chronic degenerative discogenic disease, thickened ligamentum flavum, spinal stenosis. ASSESSMENT AND PLAN: Patient is a 61yo man with PMHx of prior neck surgery , presented to ED with TIA symptoms with paresthesia of Right hand , with hx of prior TIAs, HTN, Hep C. # TIA/CVA is ruled out. Discussed with neurosurgeon and the patient in details, Also neurosurgeon discussed with the patient regarding central cord syndrome and explained that he needs surgery, patient will think about the surgery and will call the surgeon for further appointment. Patient is being discharged on ASA 81mg. Will hold the Lipitor for now. As per surgeon , the patient would benefit from Exploration of his spinal fusion and C2-7 Laminectomies with [employer] of lordosis and reconstruction with lateral mass instrumentation. # Weight loss Unintentional of 10 pounds for the past 3 months , Thyroid function test within normal limits. #Elevated Lactic Acid - resolved # Chronic back pain discharged the patient on flexeril 5mg to take it at night time since he just wanted flexeril for nights only. time taken to discharge the patient 50minutes.
--- NOTE | 2016-12-01 21:39 | DS ---
Physical Exam: SUBJECTIVE: Patient seen and examined this AM. Patient endorses no CP, fever, SOB, chills. Patient still complains of neck adn back pain. Given dose of Oxy last night. Still endorses paresthesias in LUE. Spoke to nurse about DVT prophylaxis, if patient is on heparin SQ, does not need SCds. Will order PT. OBJECTIVE: Vital Signs Period Temp Pulse Resp BP Sys/Greenberg Pulse Ox Last 24 Hr 97.8 F-99.8 F 55-80 18-20 119-151/76-91 100-100 GENERAL: The patient is awake, alert, and fully oriented, in no acute distress. EYES: PERRL, extraocular movements intact NECK: Limited ROM, tender LUNGS: Breath sounds equal, clear to auscultation bilaterally, no wheezes, no crackles, no accessory muscle use. HEART: Regular rate and rhythm, S1, S2 without murmur, rub or gallop. ABDOMEN: Soft, nontender, nondistended, normoactive bowel sounds EXTREMITIES: 2+ pulses, warm, well-perfused, no edema. NEUROLOGICAL: Patient continues to have Mental status AAOx3. No facial droop, no dysarthria. Sensation bilaterally are equal and intact. PERRLA, EOMi, LABS Laboratory Results - last 24 hr 12/01/16 12/01/16 12/01/16 06:07 06:07 06:07 WBC 4.0 D RBC 3.95 L Hgb 12.4 Hct 37.1 MCV 93.9 MCHC 33.5 RDW 13.4 Plt Count 147 MPV 10.6 Sodium 143 Potassium 3.4 L Chloride 105 Carbon Dioxide 29 Anion Gap 9 BUN 5 L D Creatinine 0.5 L D Creat Clearance w eGFR > 60 Random Glucose 96 Calcium 8.1 L Magnesium 1.7 L Total Bilirubin 0.9 D AST 73 H D ALT 33 D Alkaline Phosphatase 41 L D Creatine Kinase 328 H Creatine Kinase Index 0.3 CK-MB (CK-2) 1.0 CK-MB (CK-2) Rel Index Total Protein 5.7 L Albumin 3.3 L TSH 1.33 D Free T4 0.99 12/01/16 06:07 WBC RBC Hgb Hct MCV MCHC RDW Plt Count MPV Sodium Potassium Chloride Carbon Dioxide Anion Gap BUN Creatinine Creat Clearance w eGFR Random Glucose Calcium Magnesium Total Bilirubin AST ALT Alkaline Phosphatase Creatine Kinase Creatine Kinase Index CK-MB (CK-2) CK-MB (CK-2) Rel Index Cancelled Total Protein Albumin TSH Free T4 HOSPITAL COURSE: Date of Admission:11/30/16 Date of Discharge: 12/01/16 61yo man with h/o prior cervical spinal surgery, HTN, Hep C presents with lower and upper extremity weakness and witnessed slurred speech who was admitted for r /o TIA and CVA. Found to have significant cervical spondylosis on imaging. #Transient Ischemic Attack - ruled out - Patient presented with stroke like symptoms that mostly resolved within 24 hours, NIHSS 0 - When patient presented to ER, stroke protocol initiated: Non-con CT shows no hemorrhage, ASA 325 PO, Atorvastatin 80mg PO once, CTA head negative, MRA neck pending, 2 negative troponins, INR WNL - Brain MRI showed no acute intracranial pathology - Risk factors assessed: A1C is 5.2, lipid panel WNL, echo is WNL, carotid U/S 1 year ago shows no stenotic areas - Patient was on ASA 81mg PO QD and Lipitor 80mg PO QD until we ruled out TIA and CVA. Patient will only now be continued on ASA 81mg # Cervical Spondylosis - This was the likely cause of patient's RUE paresthesias for couple of months, and also could have contributed to the fall. - Patient had C3-C6 anterior cervical decompression and fusion surgery in 2000 - MRI C spine in 2016 shows spondylosis, osteophytes, disc bulges which deforms the spinal cord; also shows spinal cord atrophy from vascular insufficiency - Neurosurgery Dr. Cheung saw patient, looked at old scans, and spoke to patient in detail about cervical spondylosis and possibility of surgery ( exploration of spinal fusion and C2-C7 laminectomies with yazidism of lordosis and reconstruction with lateral mass instrumentation). Patient was informed that if he did not have surgery, he would likely not improve. The patient understood risks and benefits, said that he was not ready to think about surgery at the moment, but will followup with Neurosurgery. # Other - Unintentional weight loss - Patient endorses a 10 pound unintentional weight loss for past 3 months, no clear etiology, patient states that he has had loss of appetite for 3-4 months, Thyroid studies are WNL, Patient to followup with primary care doctor - Elevated Creatine Kinase - CK on admission was 420, was resolving, could be due to statin induced myositis vs fall crush injury - Elevated Lactic Acid - LA on admission was 4.0, resolved to 1.9, could be due to muscle injury s/p fall Minutes to complete discharge: 45 Discharge Summary Reason For Visit: UTI TIA WEAKNESS Condition: Good - Instructions Diet, Activity, Other Instructions: You were admitted because you fell and was on the floor for many hours. When you were here, we looked at your scans and saw that the spinal cord joints are pressing on your spinal cord, causing all of your symptoms. Please followup with your Primary Care Doctor (Dr. Elena Hauser) in one week Please followup with the Neurosurgeon (Dr. Mejia Clark) in one week Pleaes followup with the Neurologist (Dr. Rodriguez) in one week Always use your cane when you walk Please return to the emergency department if you have any serious symptoms Referrals: Mejia Clark MD, [facility] [Staff Physician] - 1 Week Guillaume Rodriguez MD [Staff Physician] - 1 Week Elena Hauser [Non Staff, Medical] - 1 Week Disposition: HOME - Home Medications Comprehensive Discharge Medication List: Ambulatory Orders Aspirin [ASA -] 81 mg PO DAILY #30 tab.chew 12/01/16 Cyclobenzaprine HCl 5 mg PO HS #15 tablet 12/01/16 This patient is new to me today: No Emergency Visit: No Critical Care patient: No - Discharge Referral Referred to [facility] Med P.C.: No
--- NOTE | 2016-12-01 22:06 | PN ---
Progress Note (short form) - Note Progress Note: I examined and met with this patient today prior to discharge. I discussed his cervical spondylosis and my proposed treatment plan with him in great detail. He was able to verbalize an understanding of the information. I offered him surgical intervention consisting of expiration of a spinal fusion, cervical 2 to 7 laminectomies and [employer] of lordosis with posterior instrumentation. I explained the risks benefits and alternatives in great detail. The risks included but were not limited to: , coma, paralysis, bleeding, infection , leakage of CSF possibly requiring spinal drainage or additional surgery, failure to improve and the need for additional surgery. The patient understands that he remains at risk for future episodes of paralysis and progression of the spondylosis and neurological deficit without treatment and that unfortunately there is no viable treatment option other than cervical decompression and stabilization. The patient accepts all risks associated with his decision to defer surgery, however indicates he may wish to have surgery in the future. I did emphasize to the patient that spinal cord compression is a time sensitive condition to which he agreed to accept responsibility for any delays in treatment. All of his questions were answered.
== END 2016-12-01 12:49 | disposition home or self-care (01) | DRG 40 ==
LOC: JER 17:17 → JERBED 11-30 05:18 → J4W 11-30 09:34
PROVIDERS: ADMIT Internal Medicine; ATTEND Internal Medicine
DX: S14.127A Central cord syndrome at C7 level of cervical spinal cord, initial encounter (principal); R20.2 Paresthesia of skin; R47.81 Slurred speech; G81.91 Hemiplegia, unspecified affecting right dominant side; Z98.1 Arthrodesis status; M47.9 Spondylosis, unspecified; E78.6 Lipoprotein deficiency; R63.4 Abnormal weight loss; R29.6 Repeated falls; X58.XXXA Exposure to other specified factors, initial encounter; Y92.9 Unspecified place or not applicable; G95.89 Other specified diseases of spinal cord; E87.6 Hypokalemia; N39.0 Urinary tract infection, site not specified
CPT/HCPCS: 36415; 70450-TC; 70496-TC; 70544-TC; 70547-TC; 70551-TC; 72141-TC; 80053; 80061; 80307; 81003; 81015; 82550; 82553; 83036; 83605; 83721; 83735; 84439; 84443; 84481; 84484; 85025; 85027; 85610; 86850; 86900; 86901; 93005; 93010; 93306-TC; 97116-GP; 97161-GP; 99285-25; J1644

== ENCOUNTER 2016-12-30 12:25 | Inpatient (IN) | payer OTHER ==
[2016-12-30 12:42] VITALS: BMI 21.7
[2016-12-30] MEDS ORDERED: ASPIRIN 81 MG CHEWABLE TABLETS PO ONE (12:58)
--- NOTE | 2016-12-30 13:04 | PDOC ---
Attending Attestation - Medical Decision Making 12/30/16 14:09 Documentation prepared by Ana Gaviria, acting as medical investigator for Steven Pichardo MD. <Ana Gaviria - Last Filed: 12/30/16 14:09> - Resident Resident Name: Niurka Polanco - ED Attending Attestation I have performed the following: I have examined & evaluated the patient, The case was reviewed & discussed with the resident, I agree w/resident's findings & plan, Exceptions are as noted - HPI HPI: 12/30/16 13:25 The patient is a 61 year old male with a significant past medical history of hepatitis C, hypertension, spinal stenosis, chronic lower back pain, brought by ambulance to the Emergency Department with weakness, chest pain, and shortness of breath. The patient reports that he was picking up his nephew at 10:30 when he began experiencing intermittent chest pain, 7/10 in intensity, associated with SOB and weakness throughout his body. He reports that it was difficult for him to lift his extremities, especially his left arm. He endorses diaphoresis with the pain. The patient admits to chronic lower back pain, for which he takes percocet and oxycontin, most recently last night. He states that he has no more percocet. He admits that he has experienced similar weakness in his arms and legs before, and admits to chronic nerve damage. He states that 2-3 weeks ago he had a syncopal episode, but denies loss of consciousness today. He denies treatment for hepatitis C. Pt denies recent travel/immobilization. No leg swelling. No h/o DVT/PE. The patient denies loss of consciousness, head trauma, and headache. Patient denies history of heart problems. Patient denies nausea, vomiting, and diarrhea. Patient denies abdominal pain. Patient denies fever, chills, and cough. Allergies: penicillins Surgical Hx: cervical spinal fusion - Physicial Exam PE: 12/30/16 13:27 "GENERAL: Well developed, well nourished. Awake and alert. No acute distress. HEENT: Normocephalic, atraumatic. PERRLA, EOMI. No conjunctival pallor. Sclera are non- icteric. Moist mucous membranes. Oropharynx is clear. NECK: Supple. Full ROM. No JVD. Carotid pulses 2+ and symmetric, without bruits. No thyromegaly. No lymphadenopathy. CARDIOVASCULAR: Regular rate and rhythm. No murmurs, rubs, or gallops. Distal pulses are 2+ and symmetric. PULMONARY: No evidence of respiratory distress. Lungs clear to auscultation bilaterally. No wheezing, rales or rhonchi. ABDOMINAL: Soft. Non-tender. Non-distended. No rebound or guarding. No organomegaly. Normoactive bowel sounds. MUSCULOSKELETAL Normal range of motion at all joints. No bony deformities or tenderness. No CVA tenderness. EXTREMITIES: No cyanosis. No clubbing. No edema. No calf tenderness. SKIN: Warm and dry. Normal capillary refill. No rashes. No jaundice. NEUROLOGICAL: Alert, awake, appropriate. Cranial nerves 2-12 intact. 4/5 muscle strength to upper extremities bilaterally. 5/5 muscle strength bilaterally to lower extremities. No deficits to light touch in face, upper extremities and lower extremities. Normal speech. PSYCHIATRIC: Cooperative. Good eye contact. Appropriate mood and affect. " - Medical Decision Making 12/30/16 13:29 61 M with h/o HTN, HCV, spinal stenosis with chronic neck and back pain, presents to ER with generalized weakness and CP+SOB. Pt with nonischemic EKG, but will r/o SC with serial trops. Pt hypotensive in ER with SBP 80s - will perform sepsis evaluation, though pt is afebrile and not tachycardic. As for pt' s weakness, this appears to be a chronic issue. Exam with mild BUE weakness, which pt states is chronic. Neuro exam otherwise non-focal. - Labs, trop - CXR, UA, BCx 12/30/16 18:33 Pt with negative infectious work up thus far. However, given mild elevation in lactate and mild hypothermia, will empirically tx with abx. Vitals improved with IVF. will admit for further work up and tx. <Steven Pichardo - Last Filed: 12/30/16 18:36> Heart Score/ECG Review - History History: Slightly suspicious - Electrocardiogram EKG: Normal - Age Age: 45-65 - Risk Factors Risk Factors Heart Score: Yes Hx Hypertension Based on the list above the patient has:: 1-2 risk factors (EKG with no ZAHIDA/STDs , no TWIs, QTc 497, axis normal) - Troponin Troponin: </= normal limit - Score Heart Score - Total: 2 <Steven Pichardo - Last Filed: 12/30/16 18:36>
[2016-12-30 13:16] LABS: BASOPHIL 0.9 % (0-2.0); EOSINOPHIL 1.6 % (0-4.5); MCH 30.7 pg (25.7-33.7); MCHC 32.7 g/dl (32.0-35.9); MEAN PLT VOLUME 10.2 fl (7.5-11.1); NEUTROPHILS 58.6 % (42.8-82.8); PLATELET COUNT 154 K/MM3 (134-434); RDW 13.2 % (11.9-15.9); WHITE BLOOD COUNT 3.7 K/mm3 (4.0-10.0)
[2016-12-30] MEDS ORDERED: ASPIRIN 81 MG CHEWABLE TABLETS ONE (13:16)
[2016-12-30] MEDS ORDERED: SODIUM CHLORIDE IV ONE (13:23)
--- NOTE | 2016-12-30 13:23 | PDOC ---
History of Present Illness - General Chief Complaint: Chest Pain Stated Complaint: CHEST PAIN Time Seen by Provider: 12/30/16 12:32 History Source: Patient, EMS Exam Limitations: No Limitations - History of Present Illness Initial Comments: This is a 61 yo male with h/o HCV, HTN (on amlodipine and lisinopril), cervical spondylosis, 2/2 C5-6 fusion in 2000, and chronic back pain (on Percocet and oxycontin) who presents c/o chest pain and all-over body pain. He had been feeling well until today at 10:30am he was driving to drop a friend off at the [employer] when he had an onset of chest and all-over body pain up to 12/04. He additionally notes nausea, shortness of breath, and sweats which came on with the onset of pain. His nephew called 911 and EMS arrived on scene. They measured his CBG to be 60 and his BP to be 88/57. They started IVF en route. The patient notes continued chest and all-over pain, but denies any new recent fever, chills, vomiting, diarrhea, constipation, abdominal pain, cough, sore throat, runny nose, numbness, tingling, weakness, difficulty walking or balancing, or other symptoms. Beta Michael given by EMS (Core Measure): No Beta Michael taken at Home (Core Measure): No Past History - Past Medical History Allergies/Adverse Reactions: Allergies Allergy/AdvReac Type Severity Reaction Status Date / Time Penicillins Allergy Severe Swelling Verified 12/30/16 12:32 Home Medications: Ambulatory Orders Oxycodone HCl [Oxycontin] 30 mg PO DAILY 12/30/16 Oxycodone HCl/Acetaminophen [Percocet 5-325 mg Tablet] 1 - 2 tab PO BID Anemia: No Asthma: No Cancer: No Cardiac Disorders: No CVA: No COPD: No CHF: No Dementia: No Diabetes: No GI Disorders: No Disorders: No HTN: Yes Hypercholesterolemia: No Liver Disease: No (HEP C) Seizures: No Thyroid Disease: No Comment:: Hepatitis C virus - Surgical History Abdominal Surgery: No Appendectomy: No Cardiac Surgery: No Cholecystectomy: No Lung Surgery: No Neurologic Surgery: No (cervical fusion) Orthopedic Surgery: Yes (discogenic dz s/p neck sx) - Immunization History Immunization Up to Date: Yes - Psycho/Social/Smoking Cessation Hx Anxiety: No Suicidal Ideation: No Smoking History: Never smoked Have you smoked in the past 12 months: No Information on smoking cessation initiated: No Hx Alcohol Use: No Drug/Substance Use Hx: No Substance Use Type: None Hx Substance Use Treatment: No Cardiac Specific PMH - Complaint Specific PMHX Pacemaker: No Review of Systems - Review of Systems Constitutional: Yes: Other (sweats). No: Chills, Fever, Unexplained wgt Loss HEENTM: No: Nose Congestion, Throat Pain Respiratory: Yes: Shortness of Breath. No: Cough Cardiac (ROS): Yes: Chest Pain. No: Syncope ABD/GI: Yes: Nausea. No: Constipated, Diarrhea, Vomiting : No: Burning, Dysuria Musculoskeletal: Yes: Back Pain, Muscle Pain, Neck Pain Integumentary: No: Bruising, Rash Neurological: No: Headache, Numbness, Tingling, Weakness, Dizziness Endocrine: No: Unexplained Weight Gain, Unexplained Weight Loss *Physical Exam - Vital Signs Last Vital Signs Temp Pulse Resp BP Pulse Ox 97.6 F 65 18 132/76 100 12/31/16 06:00 12/31/16 06:00 12/31/16 06:00 12/31/16 06:00 12/31/16 06:38 - Physical Exam General Appearance: Yes: Nourished, Appropriately Dressed, Mild Distress, Thin, Other (nontoxic-appearing adult male who is diffusely mildly diaphoretic, speaking quietly and appears tired, asking for cool rag for forehead) HEENT: positive: EOMI, Normal Voice, Hearing Grossly Normal. negative: Nasal Congestion Neck: positive: Trachea midline, Supple. negative: Tender, Rigid Respiratory/Chest: positive: Lungs Clear, Normal Breath Sounds. negative: Respiratory Distress, Accessory Muscle Use, Labored Respiration, Crackles, Rhonchi, Stridor, Wheezing Cardiovascular: positive: Regular Rhythm, Regular Rate. negative: Murmur Gastrointestinal/Abdominal: positive: Normal Bowel Sounds, Flat, Soft. negative : Tender, Organomegaly, Pulsatile Mass, Guarding Musculoskeletal: positive: Normal Inspection. negative: Decreased Range of Motion, Vertebral Tenderness Extremity: positive: Normal Capillary Refill, Normal Inspection, Normal Range of Motion. negative: Tender, Cyanosis Integumentary: positive: Normal Color, Warm, Diaphoresis. negative: Erythema, Rash, Ecchymosis, Bruising Neurologic: positive: sheet tailer II-XII NML intact, Fully Oriented, Alert, Normal Mood/ Affect, Normal Response, Motor Strength 5/5, Finger to Nose (normal), Other ( [id number] normal, no pronator drift) Heart Score/ECG Review - History History: Moderately suspicious - Electrocardiogram EKG: Normal - Age Age: 45-65 - Risk Factors Risk Factors Heart Score: Yes Hx Hypertension, No Hx Diabetes, Yes Smoking History, No Hx Obesity Based on the list above the patient has:: 1-2 risk factors - Troponin Troponin: </= normal limit - Score Heart Score - Total: 3 #1 ECG reviewed & interpreted by me at: 12:40 General ECG Interpretation: Sinus Rhythm, Normal Rate, No acute ischemic changes prolonged QTc at 497 - [place]: Normal ED Treatment Course - LABORATORY CBC & Chemistry Diagram: 12/31/16 05:50 12/31/16 05:50 - ADDITIONAL ORDERS Additional order review: 12/30/16 12/30/16 12/30/16 14:59 14:08 13:00 RBC 4.09 MCV 94.0 MCHC 32.7 RDW 13.2 MPV 10.2 Neutrophils % 58.6 D Lymphocytes % 29.4 D Monocytes % 9.5 Eosinophils % 1.6 D Basophils % 0.9 D POC Glucometer 81.22073 85.92728 12/30/16 12:47 RBC MCV MCHC RDW MPV Neutrophils % Lymphocytes % Monocytes % Eosinophils % Basophils % POC Glucometer 67.82586 - RADIOLOGY Radiology Studies Ordered: Category Date Time Status CHEST X-RAY PORTABLE* [RAD] Stat Radiology 12/30/16 13:50 Completed Comments: CXR no acute cardiopulmonary processes - Medications Given in the ED: ED Medications Discontinued Medications Generic Name Dose Route Start Last Admin Trade Name Freq PRN Reason Stop Dose Admin Aspirin 162 mg 12/30/16 12:58 12/30/16 13:20 Asa - PO 12/30/16 12:59 162 mg ONCE ONE Administration Chlorhexidine Gluconate 1 applic 12/30/16 22:00 12/30/16 22:08 Hibiclens For Decolonization - TP Not Given HS CIERRA Sodium Chloride 1,452 mls @ 1,000 mls/hr 12/30/16 13:23 12/30/16 13:38 Normal Saline - IV 12/30/16 14:50 1,000 mls/hr ONCE ONE Administration Aztreonam 2 gm/ Dextrose 100 mls @ 100 mls/hr 12/30/16 14:15 12/30/16 16:40 IV 12/30/16 15:14 100 mls/hr ONCE ONE Administration Protocol Mupirocin 1 applic 12/30/16 22:00 12/30/16 22:07 Bactroban Ointment (For Decolonization) - NS 01/04/17 21:59 Not Given BID CIERRA Vancomycin HCl 1,000 mg 12/30/16 14:15 12/30/16 14:50 Vancomycin (Pre-Docked) IVPB 12/30/16 14:16 1,000 mg ONCE ONE Administration Protocol Medical Decision Making - Medical Decision Making 61 yo male BIBA for chest pain and all-over body pain. Not tachycardic but with soft pressures, rectal temp of 93.8 after only ~600cc fluids. Patient is notably on amlodipine and lisinopril. Initiated are chest pain workup and adult sepsis protocol. DDX includes sepsis, ACS, thyroid disorder, vitamin deficiency. 12/30/16 14:07 Family arrives and notes patient is vegetarian but takes vitamins. They express concern he has lost >10 lbs unintentionally in the past several months. Continuous temperature monitoring. Lab calls with lactic acid result 2.4. Blood cultures have already been sent. Ordered are vancomycin and aztreonam (Pt is PCN allergic). 12/30/16 14:29 Temp now 95.7, HR 55, BP 91/65, pulse ox 100, RR 12 on monitor. 12/30/16 15:00 Repeat CBG is 81. Pt admitted to inpatient Med/Surg Dr. Levi (much thanks). *DC/Admit/Observation/Transfer Diagnosis at time of Disposition: Sepsis Qualifiers: Sepsis type: sepsis due to unspecified organism Qualified Code(s): A41.9 - Sepsis, unspecified organism Chest pain Qualifiers: Chest pain type: unspecified Qualified Code(s): R07.9 - Chest pain, unspecified - Discharge Dispostion Condition at time of disposition: Guarded Admit: Yes - Referrals - Attestations Physician Attestion: I, Dr. Niurka Polanco, attest that this document has been prepared under my direction and personally reviewed by me in its entirety. I further attest, that it accurately reflects all work, treatment, procedures and medical decision -making performed by me.
[2016-12-30 13:28] LABS: INR 1.04 (0.82-1.09); PROTHROMBIN TIME (PATIENT) 11.5 SEC (9.98-11.88)
[2016-12-30 13:33] LABS: URINE APPEARANCE SLCLOUDY; URINE BILIRUBIN NEGATIVE (NEGATIVE); URINE BLOOD NEGATIVE (NEGATIVE); URINE COLOR AMBER; URINE GLUCOSE (UA) NEGATIVE (NEGATIVE); URINE KETONE 1+ (NEGATIVE); URINE LEUK ESTERASE NEGATIVE (NEGATIVE); URINE NITRITE NEGATIVE (NEGATIVE); URINE PROTEIN NEGATIVE (NEGATIVE); URINE UROBILINOGEN NEGATIVE mg/dL (0.2-1.0)
[2016-12-30 13:37] LABS: VENOUS BLOOD GAS HCO3 23.6 meq/L (19-25); VENOUS PH 7.37 (7.32-7.42)
[2016-12-30 13:39] LABS: ALBUMIN 3.7 g/dl (3.4-5.0); ANION GAP 12 (8-16); BILIRUBIN,TOTAL 0.7 mg/dL (0.2-1.0); CALCIUM 8.3 mg/dL (8.5-10.1); CO2 24 mmol/L (21-32); CREATININE 0.5 mg/dL (0.7-1.3); SGOT/AST 76 U/L (15-37); SGPT/ALT 30 U/L (12-78); TOT PROT 6.4 g/dl (6.4-8.2)
[2016-12-30 13:40] LABS: MAGNESIUM 1.7 mg/dL (1.8-2.4)
[2016-12-30 13:42] LABS: ALK PHOS 42 U/L (45-117); TROPONIN I < 0.02 ng/ml (0.00-0.05)
[2016-12-30 13:44] LABS: TROPONIN I < 0.02 ng/ml (0.00-0.05)
[2016-12-30 13:46] LABS: CPK 171 IU/L (39-308)
[2016-12-30 13:53] LABS: INR 1.02 (0.82-1.09); PROTHROMBIN TIME (PATIENT) 11.2 SEC (9.98-11.88)
[2016-12-30 13:55] LABS: ACTIVATED PTT 34.9 SECONDS (26.9-34.4)
[2016-12-30 14:05] LABS: GLUCOSE,RANDOM 46 mg/dL (74-106)
[2016-12-30] MEDS ORDERED: AZTREONAM 2 GM in DEXTROSE 5%-WATER - 100 ML IV ONE (14:15)
[2016-12-30] MEDS ORDERED: VANCOMYCIN 1 GRAM (PRE-DOCKED) 1,000 MG/250 ML BAG IVPB ONE (14:15)
[2016-12-30] MEDS ORDERED: VANCOMYCIN 1 GRAM (PRE-DOCKED) 250 ML IVPB ONE (14:45)
--- NOTE | 2016-12-30 16:22 | HP ---
CHIEF COMPLAINT: Chest pain, diaphoresis, and weakness PCP: Elena Hauser HISTORY OF PRESENT ILLNESS: 61 y.o. M with pmh of HCV, HTN, spinal stenosis, and chronic lower back pain presented with chest pain, diaphoresis, and weakness. Patient took his friend's daughter to the supermarket at 1030 this morning. In the parking lot, he became diaphoretic, felt overheated, and started sweating. He felt he could not get out of the car so he called an ambulance. During this time, patient had an episode of 6/10, intermittent, pressure like left sided chest pain radiating across his chest. Patient has no previous history of cardiovascular disease or cardiac catheterizations. Patient underwent stress test in 07/2015, which was negative. He denied any nausea, vomiting, or palpitations, ER course was notable for: (1) CXR- no acute pathology, IVF (2) EKG- NSR, prolonged qtc 497, Trops negative x1 (3) wbc- 3.7, lactate of 2.4, glucose of 46, UA negative Recent Travel: denies PAST MEDICAL HISTORY: As stated above PAST SURGICAL HISTORY: neck surgery (C5-C6 lower neck fusion) Social History: Smoking: denies Alcohol: denies Drugs: denies Family History: Allergies Penicillins Allergy (Severe, Verified 12/30/16 12:32) Swelling patient states swelling of body and face. HOME MEDICATIONS: Home Medications Medication Instructions Recorded Oxycodone HCl [Oxycontin] 30 mg PO DAILY 12/30/16 Oxycodone HCl/Acetaminophen 1 - 2 tab PO BID 12/30/16 [Percocet 5-325 mg Tablet] REVIEW OF SYSTEMS CONSTITUTIONAL: Absent: fever, chills, diaphoresis, generalized weakness, malaise, loss of appetite, 15 lb weight loss over last 2 months HEENT: Absent: rhinorrhea, nasal congestion, throat pain, throat swelling, difficulty swallowing, mouth swelling, ear pain, eye pain, visual changes CARDIOVASCULAR: Absent: chest pain, syncope, palpitations, irregular heart rate, lightheadedness , peripheral edema RESPIRATORY: Absent: cough, shortness of breath, dyspnea with exertion, orthopnea, wheezing, stridor, hemoptysis GASTROINTESTINAL: Absent: abdominal pain, abdominal distension, nausea, vomiting, diarrhea, constipation, melena, hematochezia GENITOURINARY: Absent: dysuria, frequency, urgency, hesitancy, hematuria, flank pain, genital pain MUSCULOSKELETAL: Absent: myalgia, arthralgia, joint swelling, back pain, neck pain SKIN: Absent: rash, itching, pallor HEMATOLOGIC/IMMUNOLOGIC: Absent: easy bleeding, easy bruising, lymphadenopathy, frequent infections ENDOCRINE: Absent: unexplained weight gain, unexplained weight loss, heat intolerance, cold intolerance NEUROLOGIC: Absent: headache, focal weakness or paresthesias, dizziness, unsteady gait, seizure, mental status changes, bladder or bowel incontinence PSYCHIATRIC: Absent: anxiety, depression, suicidal or homicidal ideation, hallucinations. PHYSICAL EXAMINATION Vital Signs - 24 hr 12/30/16 12/30/16 12/30/16 12:33 13:05 13:20 Temperature 97.3 F L Pulse Rate 71 Pulse Rate [ 52 L 74 Apical] Respiratory 20 18 18 Rate Blood Pressure 100/70 Blood Pressure 88/61 98/66 [Right Arm] O2 Sat by Pulse 100 100 100 Oximetry (%) 12/30/16 12/30/16 12/30/16 13:38 13:40 13:50 Temperature 94.9 F L Pulse Rate Pulse Rate [ 58 L Apical] Respiratory 18 Rate Blood Pressure 98/66 Blood Pressure 104/70 [Right Arm] O2 Sat by Pulse 100 100 Oximetry (%) 12/30/16 12/30/16 12/30/16 14:00 14:30 15:00 Temperature 95 F L 96.3 F L Pulse Rate Pulse Rate [ 60 56 L 63 Apical] Respiratory 18 56 H 18 Rate Blood Pressure Blood Pressure 102/74 91/65 122/90 [Right Arm] O2 Sat by Pulse 100 100 100 Oximetry (%) 12/30/16 15:08 Temperature 95.5 F L Pulse Rate Pulse Rate [ 57 L Apical] Respiratory 18 Rate Blood Pressure Blood Pressure 106/73 [Right Arm] O2 Sat by Pulse 100 Oximetry (%) GENERAL: Awake, alert, and fully oriented, in no acute distress. HEAD: Normal with no signs of trauma. EYES: Pupils equal, round and reactive to light, extraocular movements intact, sclera anicteric, conjunctiva clear. No lid lag. EARS, NOSE, THROAT: Oropharynx clear without exudates. Moist mucous membranes. NECK: Normal range of motion, supple without lymphadenopathy, JVD, or masses. LUNGS: Breath sounds equal, clear to auscultation bilaterally. No wheezes, and no crackles. No accessory muscle use. HEART: Regular rate and rhythm, normal S1 and S2 without murmur, rub or gallop. ABDOMEN: Soft, nontender, not distended, normoactive bowel sounds, no guarding, no rebound, no masses. No hepatomegaly or splenomegaly. UPPER EXTREMITIES: 2+ pulses, warm, well-perfused. No cyanosis. No clubbing. No peripheral edema. LOWER EXTREMITIES: 2+ pulses, warm, well-perfused. No calf tenderness. No peripheral edema. NEUROLOGICAL: Cranial nerves II-XII intact. Normal speech. 4/5 strenght UE ( Baseline), 3/5 left hip (weaker than usual per pt), 5/5 RLE, LLE PSYCHIATRIC: Cooperative. Good eye contact. Appropriate mood and affect. SKIN: Warm, dry, normal turgor, no rashes or lesions noted, normal capillary refill. Laboratory Results - last 24 hr 12/30/16 12/30/16 12/30/16 12:47 13:00 13:00 WBC 3.7 L RBC 4.09 Hgb 12.6 Hct 38.5 MCV 94.0 MCH 30.7 MCHC 32.7 RDW 13.2 Plt Count 154 MPV 10.2 Neutrophils % 58.6 D Lymphocytes % 29.4 D Monocytes % 9.5 Eosinophils % 1.6 D Basophils % 0.9 D INR PTT (Actin FS) VBG pH POC VBG pCO2 POC VBG pO2 Mixed VBG HCO3 Sodium 140 Potassium 3.7 Chloride 104 Carbon Dioxide 24 Anion Gap 12 BUN 11 D Creatinine 0.5 L Creat Clearance w eGFR > 60 POC Glucometer 67.89906 Random Glucose 46 L* D Lactic Acid Calcium 8.3 L Magnesium Total Bilirubin 0.7 D AST 76 H ALT 30 Alkaline Phosphatase 42 L Ammonia Creatine Kinase Creatine Kinase Index CK-MB (CK-2) Troponin I < 0.02 B-Natriuretic Peptide Total Protein 6.4 Albumin 3.7 Lipase TSH Urine Color Urine Appearance Urine pH Urine Protein Urine Glucose (UA) Urine Ketones Urine Blood Urine Nitrite Urine Bilirubin Urine Urobilinogen Ur Leukocyte Esterase Blood Type Antibody Screen 12/30/16 12/30/16 12/30/16 13:00 13:00 13:00 WBC RBC Hgb Hct MCV MCH MCHC RDW Plt Count MPV Neutrophils % Lymphocytes % Monocytes % Eosinophils % Basophils % INR 1.04 PTT (Actin FS) VBG pH POC VBG pCO2 POC VBG pO2 Mixed VBG HCO3 Sodium Potassium Chloride Carbon Dioxide Anion Gap BUN Creatinine Creat Clearance w eGFR POC Glucometer Random Glucose Lactic Acid Calcium Magnesium 1.7 L Total Bilirubin AST ALT Alkaline Phosphatase Ammonia Creatine Kinase 171 Creatine Kinase Index 1.1 CK-MB (CK-2) 1.938 Troponin I < 0.02 B-Natriuretic Peptide 40.37 Cancelled Total Protein Albumin Lipase 103 Cancelled TSH 0.30 L D Urine Color Urine Appearance Urine pH Urine Protein Urine Glucose (UA) Urine Ketones Urine Blood Urine Nitrite Urine Bilirubin Urine Urobilinogen Ur Leukocyte Esterase Blood Type Antibody Screen 12/30/16 12/30/16 12/30/16 13:05 13:05 13:05 WBC RBC Hgb Hct MCV MCH MCHC RDW Plt Count MPV Neutrophils % Lymphocytes % Monocytes % Eosinophils % Basophils % INR 1.02 PTT (Actin FS) 34.9 H VBG pH 7.37 POC VBG pCO2 41.9 POC VBG pO2 48.0 Mixed VBG HCO3 23.6 Sodium Potassium Chloride Carbon Dioxide Anion Gap BUN Creatinine Creat Clearance w eGFR POC Glucometer Random Glucose Lactic Acid Calcium Magnesium Total Bilirubin AST ALT Alkaline Phosphatase Ammonia Creatine Kinase Creatine Kinase Index CK-MB (CK-2) Troponin I B-Natriuretic Peptide Total Protein Albumin Lipase TSH Urine Color Donna Urine Appearance Slcloudy Urine pH 5.0 Urine Protein Negative Urine Glucose (UA) Negative Urine Ketones 1+ H Urine Blood Negative Urine Nitrite Negative Urine Bilirubin Negative Urine Urobilinogen Negative Ur Leukocyte Esterase Negative Blood Type Antibody Screen 12/30/16 12/30/16 12/30/16 13:05 13:05 13:05 WBC RBC Hgb Hct MCV MCH MCHC RDW Plt Count MPV Neutrophils % Lymphocytes % Monocytes % Eosinophils % Basophils % INR PTT (Actin FS) VBG pH POC VBG pCO2 POC VBG pO2 Mixed VBG HCO3 Sodium Potassium Chloride Carbon Dioxide Anion Gap BUN Creatinine Creat Clearance w eGFR POC Glucometer Random Glucose Lactic Acid 2.4 H* Calcium Magnesium Total Bilirubin AST ALT Alkaline Phosphatase Ammonia 17.05 Creatine Kinase Creatine Kinase Index CK-MB (CK-2) Troponin I B-Natriuretic Peptide Total Protein Albumin Lipase TSH Urine Color Urine Appearance Urine pH Urine Protein Urine Glucose (UA) Urine Ketones Urine Blood Urine Nitrite Urine Bilirubin Urine Urobilinogen Ur Leukocyte Esterase Blood Type O POSITIVE Antibody Screen Negative 12/30/16 12/30/16 12/30/16 13:48 14:08 14:59 WBC RBC Hgb Hct MCV MCH MCHC RDW Plt Count MPV Neutrophils % Lymphocytes % Monocytes % Eosinophils % Basophils % INR PTT (Actin FS) VBG pH POC VBG pCO2 POC VBG pO2 Mixed VBG HCO3 Sodium Potassium Chloride Carbon Dioxide Anion Gap BUN Creatinine Creat Clearance w eGFR POC Glucometer 85.00376 81.06846 Random Glucose Lactic Acid Calcium Magnesium Total Bilirubin AST ALT Alkaline Phosphatase Ammonia Creatine Kinase Creatine Kinase Index CK-MB (CK-2) Troponin I B-Natriuretic Peptide Total Protein Albumin Lipase TSH Cancelled Urine Color Urine Appearance Urine pH Urine Protein Urine Glucose (UA) Urine Ketones Urine Blood Urine Nitrite Urine Bilirubin Urine Urobilinogen Ur Leukocyte Esterase Blood Type Antibody Screen ASSESSMENT/PLAN: 61 year old M with pmh of HCV, HTN, spinal stenosis, and chronic lower back pain presented with chest pain, diaphoresis, and generalized weakness found to be hypoglycemic and hypothermic admitted for r/o ACS and sepsis secondary to unknown etiology. Problem List - Problem (1) Chest pain Assessment/Plan: R/o ACS Admit to telemetry Troponins negative x3 Aspirin 81 mg po daily Echo in 11/2016 showed Normal LV/RV fxn and mild tricuspid regurgitation Lipid profile (2) Sepsis Assessment/Plan: Lactic Acidemia-- 2.4 on admission. Previous admission lactic acid of 4.0 noted in November 2016. Secondary to unknown etiology, possibly hypotension/hypoglycemia Patient started on Vancomycin 1g IV and Aztreonam 3g IV in the ED Monitor Lactic acid Continue IVF NS at 100cc/hr ID consulted (3) Back pain Assessment/Plan: Patient has cervical stenosis with cord compression Patient does not want surgery Continue home Acetominophin/oxycodone 325/5 po bid prn (4) Hypoglycemia Assessment/Plan: 46 on admission 81 poc glucometer Will continue to monitor (5) HTN (hypertension) Assessment/Plan: Hx of HTN Not currently on medications (6) Hypotension Assessment/Plan: Patient presented hypotensive Improved with IVF Will continue to monitor (7) Hypothermia Assessment/Plan: Presented in hypothermia. Temperature improved over time. Resolved Visit type - Emergency Visit Emergency Visit: Yes ED Registration Date: 12/30/16 Care time: The patient presented to the Emergency Department on the above date and was hospitalized for further evaluation of their emergent condition. - New Patient This patient is new to me today: Yes Date on this admission: 12/31/16 - Critical Care Critical Care patient: No
[2016-12-30] MEDS ORDERED: SODIUM CHLORIDE 1,000 ML IV SCH (17:30)
--- NOTE | 2016-12-30 18:51 | PN ---
Teaching Attending Note Name of Resident: Paulo Lee ATTENDING PHYSICIAN STATEMENT I saw and evaluated the patient. I reviewed the resident's note and discussed the case with the resident. I agree with the resident's findings and plan as documented. SUBJECTIVE: This is a 61-year-old man with a history of HTN, HCV, cervical spondylosis/stenosis, cervical fusion, chronic neck pain who comes to the ER complaining of chest pain. After driving to the [place], while sitting in the car, he developed chest pain associated with nausea, diaphoresis, and generalized weakness. EMS was called and found his glucose to be 60 and BP to be 88/57. He was treated with IV fluid and brought in to the ER. OBJECTIVE: Vital Signs Period Temp Pulse Resp BP Sys/Greenberg Pulse Ox Last 24 Hr 94.9 F-98.2 F 52-74 12-56 88-122/61-90 100-100 HEART: S1S2, RRR LUNGS: Clear ABDOMEN: Soft, non-tender, non-distended, normal BS EXTREMITIES: No edema ASSESSMENT AND PLAN: This is a 61-year-old man with a history of HTN, HCV, cervical spondylosis/ stenosis, cervical fusion, chronic neck pain who presented to the ER with chest pain, nausea, diaphoresis, weakness, hypotension, hypothermia and hypoglycemia. 1. Chest pain - Had negative stress test 08/10 - Monitor on telemetry - Serial troponins - Aspirin given in ER - Echo (11/30/16) showed normal LV, normal RV, mild TR 2. Lactic acidemia - Likely secondary to hypotension and hypoglycemia - Aztreonam, Vancomycin given in ER - No clear evidence of infection - Will hold antibiotics at this time - Continue IV fluid - Correct hypoglycemia - Monitor lactic acid - Patient had lactic acid 4.0 on 11/29. Given history of HCV and unexplained weight loss, HIV and malignancy should be ruled-out 3. 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 Hypertension - On no medications 5. Hypotension - Improved with IV fluid - No clear evidence of infection 6. Hypothermia - Improved
[2016-12-30] MEDS ORDERED: CHLORHEXIDINE GLUCONATE 4% CLEANSER FOR DECOLONIZATION TP SCH (22:00)
[2016-12-30] MEDS ORDERED: MUPIROCIN 2% TOPICAL OINTMENT FOR DECOLONIZATION NS SCH (22:00)
[2016-12-30] MEDS: oxyCODONE HCL 5 MG TABLET PO PRN (22:04)
[2016-12-30] MEDS: ACETAMINOPHEN 325 MG TABLET (FP) PO PRN (22:06)
[2016-12-30] MEDS: ASPIRIN 81 MG CHEWABLE TABLETS PO SCH (22:07)
[2016-12-30] MEDS: HEPARIN NA (PORCINE) 5,000 UNITS/ML 1ML VIAL SQ SCH (22:07)
[2016-12-31 07:51] LABS: BASOPHIL 1.1 % (0-2.0); EOSINOPHIL 2.2 % (0-4.5); MCH 30.8 pg (25.7-33.7); MCHC 33.2 g/dl (32.0-35.9); MEAN CELL VOLUME 92.8 fl (80-96); MEAN PLT VOLUME 10.7 fl (7.5-11.1); NEUTROPHILS 39.9 % (42.8-82.8); PLATELET COUNT 153 K/MM3 (134-434); RDW 13.2 % (11.9-15.9); WHITE BLOOD COUNT 3.3 K/mm3 (4.0-10.0)
--- NOTE | 2016-12-31 08:15 | EKG ---
Test Reason : Blood Pressure : / mmHG Vent. Rate : 078 BPM Atrial Rate : 078 BPM P-R Int : 162 ms QRS Dur : 096 ms QT Int : 436 ms P-R-T Axes : 084 083 067 degrees QTc Int : 497 ms NORMAL SINUS RHYTHM PROLONGED QT ABNORMAL ECG WHEN COMPARED WITH ECG OF 29-NOV-2016 18:57, NO SIGNIFICANT CHANGE WAS FOUND Confirmed by PHILIP GUZMÁN MD ([id number]) on 12/31/2016 8:15:31 AM Referred By: Confirmed By:PHILIP GUZMÁN MD
[2016-12-31 08:29] LABS: CHOLESTEROL 157 mg/dL (50-200); LDL CHOLESTEROL (ONLY SJRH) 47 mg/dL (5-100)
[2016-12-31 08:31] LABS: ALBUMIN 3.5 g/dl (3.4-5.0); ALK PHOS 46 U/L (45-117); ANION GAP 11 (8-16); CALCIUM 8.6 mg/dL (8.5-10.1); CO2 26 mmol/L (21-32); CREATININE 0.5 mg/dL (0.7-1.3); GLUCOSE,RANDOM 86 mg/dL (74-106); MAGNESIUM 1.9 mg/dL (1.8-2.4); PHOSPHOROUS 2.7 mg/dL (2.5-4.9); SGOT/AST 69 U/L (15-37); SGPT/ALT 30 U/L (12-78)
--- NOTE | 2016-12-31 08:38 | PN ---
Physical Exam: The patient is a 61-year-old man with a history of HTN, HCV, cervical spondylosis/stenosis, cervical fusion, chronic neck pain who was admitted to inpatient services yesterday after he presented to the ER complaining of chest pain and was found to be hypotensive, mildly hypoglycemic and mildly hypothermic and to have a lactic acidosis without evidence of infection. SUBJECTIVE: Patient seen and examined. He is complaining of chronic pain and request that we restart his home regimen of Oxycontin 30mg with breakthrough Percocet 5mg prn. Otherwise, he has no complaints. OBJECTIVE: Vital Signs Period Temp Pulse Resp BP Sys/Greenberg Pulse Ox Last 24 Hr 97.6 F-99.5 F 61-68 12-22 108-132/62-85 100-100 HEART: S1S2, RRR LUNGS: Clear ABDOMEN: Soft, non-tender, non-distended, normal BS EXTREMITIES: No edema Laboratory Results - last 24 hr 12/30/16 12/31/16 12/31/16 20:00 00:50 05:50 WBC 3.3 L RBC 4.15 Hgb 12.8 Hct 38.6 MCV 92.8 MCH 30.8 MCHC 33.2 RDW 13.2 Plt Count 153 MPV 10.7 Neutrophils % 39.9 L D Lymphocytes % 40.4 H D Monocytes % 16.4 H Eosinophils % 2.2 Basophils % 1.1 Troponin I < 0.02 < 0.02 Triglycerides Cholesterol Total LDL Cholesterol HDL Cholesterol 12/31/16 05:50 WBC RBC Hgb Hct MCV MCH MCHC RDW Plt Count MPV Neutrophils % Lymphocytes % Monocytes % Eosinophils % Basophils % Troponin I Triglycerides 78 Cholesterol 157 Total LDL Cholesterol 47 HDL Cholesterol 108 H Active Medications Generic Name Dose Route Start Last Admin Trade Name Freq PRN Reason Stop Dose Admin Acetaminophen 325 mg 12/30/16 20:54 12/30/16 22:06 Tylenol - PO 325 mg BID PRN Administration PAIN Aspirin 81 mg 12/30/16 19:00 12/30/16 22:07 Asa - PO 81 mg DAILY CIERRA Administration Heparin Sodium (Porcine) 5,000 unit 12/30/16 22:00 12/30/16 22:07 Heparin - SQ 5,000 unit BID CIERRA Administration Sodium Chloride 1,000 mls @ 100 mls/hr 12/30/16 17:30 12/30/16 22:07 Normal Saline - IV 100 mls/hr ASDIR CIERRA Administration Oxycodone HCl 5 mg 12/30/16 20:54 12/30/16 22:04 Roxicodone - PO 5 mg BID PRN Administration PAIN ASSESSMENT/PLAN: CARDIOVASCULAR Chest pain - resolved Hypotension, resolved Etiology of hypotension unclear BP has normalized With normalized blood pressure, temperature and glucose, adrenal insufficiency is extremely unlikely TFTs were normal/near normal Had negative stress test 08/10 Echo (11/30/16) showed normal LV, normal RV, mild TR Continue to monitor on telemetry Two troponins negative, 3rd pending Will discontinue IVF Will obtain TTE Will consult cardiology Continue ASA LACTIC ACIDOSIS Lactate did not trend down overnight AM lactate pending Likely secondary to hypotension and hypoglycemia Aztreonam and Vancomycin were given in ER BCs negative He is afebrile, without leukocytosis and without signs of focal infection As there is no clear evidence of infection will hold antibiotics at this time Continue IV fluid AM lactate pending Of note, the patient had lactic acid 4.0 on 11/29. Given his history of HCV and unexplained weight loss, HIV and malignancy should be ruled-out Abd US ordered and pending ORTHO Cervical spondylosis and stenosis with cord compression and myelopathy He was evaluated by neurosurgery 12/11 but patient did not want surgery at the time Begin Ocycontin 20mg BID Continue Oxycodone 5mg BID prn pain FEN Discontinue IVF Na controlled diet PROPHYLAXIS Eating Hep SQ DISPOSITION I feel he requires another 24 hours of monitoring given the severity of his hypotension and the fact that it remains unexplained If stable, he can be discharged tomorrow morning Visit type - Emergency Visit Emergency Visit: Yes ED Registration Date: 12/30/16 Care time: The patient presented to the Emergency Department on the above date and was hospitalized for further evaluation of their emergent condition. - New Patient This patient is new to me today: Yes Date on this admission: 12/31/16 - Critical Care Critical Care patient: No
--- NOTE | 2016-12-31 09:07 | CON.CARD ---
Consult Consult Specialty:: Cardiology Referred by:: Hospitalist Reason for Consultation:: Cardiac evaluation - History of Present Illness Chief Complaint: Generalized weakness History of Present Illness: Patient is a 61 year old male with underlying history of hypertension, spinal stenosis, chronic back pain and hepatitis C who presents with complaints of chest discomfort, diaphoresis and generalized weakness. Patient became diaphoretic and started to sweat while outside the supermarket. EMS was called and reported chest pressure across his substernum. He denies any cardiac diseases. He denies diabetes mellitus or bronchial asthma. He denies shortness of breath or palpitations. He denies paroxysmal nocturnal dyspnea or orthopnea. He denies fever or chills. He denies headache or lightheadedness. Cardiology consultation was called for further evaluation. Prior stress testing was reported negative. 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 (cervical disc disease with radiculopathy) Cardio/Vascular: Yes: HTN Hepatobiliary: Yes: Hepatitis C Musculoskeletal: Yes: Chronic low back pain - Past Surgical History Additional Surgical History: Neck surgery (spinal fusion) - Alcohol/Substance Use Hx Alcohol Use: No - Smoking History Smoking history: Never smoked Have you smoked in the past 12 months: No - Social History ADL: Independent History of Recent Travel: No Home Medications - Allergies Allergies/Adverse Reactions: Allergies Allergy/AdvReac Type Severity Reaction Status Date / Time Penicillins Allergy Severe Swelling Verified 12/30/16 12:32 - Home Medications Home Medications: Ambulatory Orders Oxycodone HCl [Oxycontin] 30 mg PO DAILY 12/30/16 Oxycodone HCl/Acetaminophen [Percocet 5-325 mg Tablet] 1 - 2 tab PO BID Review of Systems - Review of Systems Constitutional: reports: Weakness. denies: Chills, Fever Cardiovascular: reports: Chest Pain. denies: Palpitations, Shortness of Breath Respiratory: denies: Cough, Hemoptysis, Orthopnea, PND, SOB, SOB on Exertion Gastrointestinal: denies: Abdominal Pain, Constipation, Diarrhea, Melena, Nausea , Rectal Bleeding, Vomiting Musculoskeletal: reports: Back Pain, Joint Pain Neurological: reports: Weakness. denies: Dizziness, Headache, Numbness, Seizure , Syncope Vital Signs: Vital Signs Temperature 97.6 F 12/31/16 06:00 Pulse Rate 65 08/06/17 06:00 Respiratory Rate 18 12/31/16 06:00 Blood Pressure 132/76 12/31/16 06:00 O2 Sat by Pulse Oximetry (%) 100 12/31/16 06:38 HENT: Yes: Atraumatic Neck: Yes: Supple Respiratory: Yes: CTA Bilaterally Gastrointestinal: Yes: Normal Bowel Sounds, Soft. No: Tenderness Cardiovascular: Yes: Regular Rate and Rhythm JVD: No Carotid Bruit: No PMI: Non-Displaced Heart Sounds: Yes: S1, S2. No: Gallop Edema: No - Other Data Labs, Other Data: CBC, BMP 12/31/16 05:50 INR, PTT INR 1.02 (0.82-1.09) 12/30/16 13:05 Troponin, BNP 12/30/16 12/31/16 20:00 00:50 Troponin I < 0.02 < 0.02 Laboratory Results - last 24 hr 12/31/16 12/31/16 12/31/16 00:50 05:50 05:50 WBC 3.3 L RBC 4.15 Hgb 12.8 Hct 38.6 MCV 92.8 MCH 30.8 MCHC 33.2 RDW 13.2 Plt Count 153 MPV 10.7 Neutrophils % 39.9 L D Lymphocytes % 40.4 H D Monocytes % 16.4 H Eosinophils % 2.2 Basophils % 1.1 Sodium 140 Potassium 3.8 Chloride 103 Carbon Dioxide 26 Anion Gap 11 BUN 8 D Creatinine 0.5 L Creat Clearance w eGFR > 60 Random Glucose 86 D Lactic Acid Calcium 8.6 Phosphorus 2.7 Magnesium 1.9 Total Bilirubin 1.0 D AST 69 H ALT 30 Alkaline Phosphatase 46 Troponin I < 0.02 Total Protein 6.0 L Albumin 3.5 Triglycerides Cholesterol Total LDL Cholesterol HDL Cholesterol 12/31/16 12/31/16 12/31/16 05:50 11:06 11:50 WBC RBC Hgb Hct MCV MCH MCHC RDW Plt Count MPV Neutrophils % Lymphocytes % Monocytes % Eosinophils % Basophils % Sodium Potassium Chloride Carbon Dioxide Anion Gap BUN Creatinine Creat Clearance w eGFR Random Glucose Lactic Acid 1.5 Calcium Phosphorus Magnesium Total Bilirubin AST ALT Alkaline Phosphatase Troponin I < 0.02 Total Protein Albumin Triglycerides 78 Cholesterol 157 Total LDL Cholesterol 47 HDL Cholesterol 108 H Sinus rhythm with prolonged QT Imaging - Results Chest X-ray: Report Reviewed (Unremarkable) EKG: Report Reviewed Problem List - Problems (1) Chest pain Code(s): R07.9 - CHEST PAIN, UNSPECIFIED Qualifiers: Chest pain type: unspecified Qualified Code(s): R07.9 - Chest pain, unspecified (2) HTN (hypertension) Code(s): I10 - ESSENTIAL (PRIMARY) HYPERTENSION Qualifiers: Hypertension type: essential hypertension Qualified Code(s): I10 - Essential (primary) hypertension (3) Hypotension Code(s): I95.9 - HYPOTENSION, UNSPECIFIED Qualifiers: Hypotension type: unspecified hypotension type Qualified Code(s): I95.9 - Hypotension, unspecified (4) Sepsis Code(s): A41.9 - SEPSIS, UNSPECIFIED ORGANISM Qualifiers: Sepsis type: sepsis due to unspecified organism Qualified Code(s): A41.9 - Sepsis, unspecified organism (5) Back pain Code(s): M54.9 - DORSALGIA, UNSPECIFIED (6) Hypoglycemia Code(s): E16.2 - HYPOGLYCEMIA, UNSPECIFIED (7) Intractable low back pain Code(s): M54.5 - LOW BACK PAIN (8) Weakness Code(s): R53.1 - WEAKNESS Assessment/Plan 1. Chest pain syndrome 2. Hypertension 3. Generalized weakness with episode of hypoglycemia - rule out infection especially with lactic acidosis 4. Hepatitis C 5. Cervical spondylosis with stenosis, cord compression with myelopathy 6. Abnormal LFT (AST) PLAN: 1. Serial cardiac enzymes 2. Prior cardiac work up as noted 3. Empiric antibiotics, source of infection is unclear 4. ASA 5. DVT prophylaxis 6. Repeat echocardiography to assess LV/RV and valvular function 7. Analgesics as needed 8. Follow up LFTs. Abdominal US Further plans are to follow Jarek Lynch MD
[2016-12-31] MEDS: HEPARIN NA (PORCINE) 5,000 UNITS/ML 1ML VIAL SQ SCH ×2 (10:14→21:57)
[2016-12-31] MEDS: ASPIRIN 81 MG CHEWABLE TABLETS PO SCH (10:14)
[2016-12-31] MEDS: oxyCODONE HCL 5 MG TABLET PO PRN (10:14)
[2016-12-31] MEDS: ACETAMINOPHEN 325 MG TABLET (FP) PO PRN (10:15)
[2016-12-31] MEDS ORDERED: oxyCODONE HCL 20 MG SUSTAINED ACTING TABLET PO SCH (11:15)
[2016-12-31] MEDS: oxyCODONE HCL 20 MG SUSTAINED ACTING TABLET PO SCH ×3 (12:30→21:57)
--- NOTE | 2016-12-31 13:28 | HOSP ---
Subjective - Review of Symptoms Subjective: Addendum 1:28p Third troponin negative Lactate has trended down Physical Examination Vital Signs: Vital Signs Temperature 98.1 F 12/31/16 10:00 Pulse Rate 66 12/31/16 10:00 Respiratory Rate 18 12/31/16 10:00 Blood Pressure 121/77 12/31/16 10:00 O2 Sat by Pulse Oximetry (%) 100 12/31/16 09:00 Labs: CBC, BMP 12/31/16 05:50 12/31/16 05:50
[2017-01-01 05:53] VITALS: TEMP 98
[2017-01-01 07:26] LABS: MCHC 33.5 g/dl (32.0-35.9); MEAN CELL VOLUME 92.6 fl (80-96); PLATELET COUNT 150 K/MM3 (134-434); RDW 13.1 % (11.9-15.9); WHITE BLOOD COUNT 3.1 K/mm3 (4.0-10.0)
[2017-01-01 07:29] LABS: ANION GAP 10 (8-16); CALCIUM 8.8 mg/dL (8.5-10.1); CO2 29 mmol/L (21-32); CREATININE 0.6 mg/dL (0.7-1.3); GLUCOSE,RANDOM 95 mg/dL (74-106); MAGNESIUM 1.9 mg/dL (1.8-2.4); PHOSPHOROUS 3.8 mg/dL (2.5-4.9)
[2017-01-01] MEDS: oxyCODONE HCL 5 MG TABLET PO PRN (07:44)
[2017-01-01] MEDS: HEPARIN NA (PORCINE) 5,000 UNITS/ML 1ML VIAL SQ SCH (10:03)
[2017-01-01] MEDS: ASPIRIN 81 MG CHEWABLE TABLETS PO SCH (10:03)
--- NOTE | 2017-01-01 10:04 | PN ---
Progress Note, Physician Chief Complaint: Not in distress History of Present Illness: Patient was seen and examined. Awake and alert. Chart was reviewed GI input noted. Denies chest pain, SOB or palpitations - Current Medication List Current Medications: Active Medications Acetaminophen (Tylenol -) 325 mg PO BID PRN PRN Reason: PAIN Last Admin: 12/31/16 10:15 Dose: 325 mg Aspirin (Asa -) 81 mg PO DAILY [facility] Last Admin: 12/31/16 10:14 Dose: 81 mg Heparin Sodium (Porcine) (Heparin -) 5,000 unit SQ BID [facility] Last Admin: 12/31/16 21:57 Dose: 5,000 unit Oxycodone HCl (Roxicodone -) 5 mg PO BID PRN PRN Reason: PAIN Last Admin: 01/01/17 07:44 Dose: 5 mg Oxycodone HCl (Oxycontin -) 20 mg PO BID [facility] Last Admin: 12/31/16 21:57 Dose: 20 mg - Objective Vital Signs: Vital Signs Temperature 98 F 01/01/17 05:52 Pulse Rate 60 01/01/17 05:52 Respiratory Rate 20 01/01/17 05:52 Blood Pressure 128/86 01/01/17 05:52 O2 Sat by Pulse Oximetry (%) 100 12/31/16 21:00 Neck: Yes: Supple Cardiovascular: Yes: Regular Rate and Rhythm, S1, S2 Respiratory: Yes: CTA Bilaterally Gastrointestinal: Yes: Normal Bowel Sounds, Soft. No: Tenderness Edema: No Additional Findings/Remarks: - Review of Systems Constitutional: reports: Weakness. denies: Chills, Fever Cardiovascular: reports: Chest Pain. denies: Palpitations, Shortness of Breath Respiratory: denies: Cough, Hemoptysis, Orthopnea, PND, SOB, SOB on Exertion Gastrointestinal: denies: Abdominal Pain, Constipation, Diarrhea, Melena, Nausea , Rectal Bleeding, Vomiting Musculoskeletal: reports: Back Pain, Joint Pain Neurological: reports: Weakness. denies: Dizziness, Headache, Numbness, Seizure , Syncope Labs: CBC, BMP 01/01/17 05:35 01/01/17 05:35 INR, PTT INR 1.02 (0.82-1.09) 12/30/16 13:05 Problem List - Problems (1) Chest pain Code(s): R07.9 - CHEST PAIN, UNSPECIFIED Qualifiers: Chest pain type: unspecified Qualified Code(s): R07.9 - Chest pain, unspecified (2) HTN (hypertension) Code(s): I10 - ESSENTIAL (PRIMARY) HYPERTENSION Qualifiers: Hypertension type: essential hypertension Qualified Code(s): I10 - Essential (primary) hypertension (3) Hypotension Code(s): I95.9 - HYPOTENSION, UNSPECIFIED Qualifiers: Hypotension type: unspecified hypotension type Qualified Code(s): I95.9 - Hypotension, unspecified (4) Sepsis Code(s): A41.9 - SEPSIS, UNSPECIFIED ORGANISM Qualifiers: Sepsis type: sepsis due to unspecified organism Qualified Code(s): A41.9 - Sepsis, unspecified organism (5) Back pain Code(s): M54.9 - DORSALGIA, UNSPECIFIED (6) Hypoglycemia Code(s): E16.2 - HYPOGLYCEMIA, UNSPECIFIED (7) Intractable low back pain Code(s): M54.5 - LOW BACK PAIN (8) Weakness Code(s): R53.1 - WEAKNESS Assessment/Plan 1. Chest pain syndrome 2. Hypertension 3. Generalized weakness with episode of hypoglycemia - rule out infection especially with lactic acidosis 4. Hepatitis C now also with liver mass, etiology to be determined 5. Cervical spondylosis with stenosis, cord compression with myelopathy 6. Abnormal LFT (AST) PLAN: 1. Serial cardiac enzymes were negative 2. Prior cardiac work up as noted =- echocardiography revealed normal LV systolic function, mild to moderate MR, moderate TR and mild NH 3. Empiric antibiotics 4. ASA 5. DVT prophylaxis 6. Analgesics as needed 7. GI follow up for liver mass as outpatient Further plans are to follow Jarek Lynch MD
[2017-01-01] MEDS: oxyCODONE HCL 20 MG SUSTAINED ACTING TABLET PO SCH (10:05)
--- NOTE | 2017-01-01 11:21 | PN ---
Teaching Attending Note Name of Resident: Paulo Lee ATTENDING PHYSICIAN STATEMENT I saw and evaluated the patient. I reviewed the resident's note and discussed the case with the resident. I agree with the resident's findings and plan as documented. SUBJECTIVE: No complaints Wants to go home No dizziness with rapid position change from seated to standing OBJECTIVE: Vitals noted ASSESSMENT AND PLAN: TTE today Anticipate discharge pending results Outpatient follow-up with GI for hepatic lobe mass The resident [facility] follow[facility]up to evaluate the mass for possible carcinoma to the patient and he agreed and understood See resident note for full details
[2017-01-01 11:35] VITALS: BP 122/78; PULSE 64
[2017-01-01] MEDS ORDERED: POTASSIUM CHLORIDE TABS 20 MEQ TABLET.ER (FP) PO ONE ×2 (13:37→14:30)
--- NOTE | 2017-01-01 14:06 | CON.GI ---
Consult Consult Specialty:: GI Referred by:: Hospitalist Service Reason for Consultation:: Liver Lesion on US - History of Present Illness Chief Complaint: "I felt weak" History of Present Illness: 61M admitted to [facility] 12/30/16 after being BIBEMS secondary to weakness / diaphoresis. He gave a history of weight loss and due to this Abd US was performed revealing a 3.3 x 3.5cm right lobe liver lesion. He currently denies any GI complaints and states that prior to the onset of his admitting symptoms he was nauseated. He also gives a history of an unintentional 15 pound weight loss in the last 4 months. He has a history of chronic hepatitis C and has been followed by Dr. Arron Oliveira. Mr. An goes on to tell me that about [address] Oliveira was set to treat him for his CHC with Marv. While Mr. An got the prescription, he never started the medication and self admittedly missed two follow-up appointments with Dr. Oliveira as well. He also tells me that within the last 4 years he had both an EGD and Colonoscopy with Dr. Oliveira that were "OK". There is no family history of colorectal cancer, liver disease or other GI malignancy. He is a bit frustrated because he wants to go home today. 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) Cardio/Vascular: Yes: HTN Hepatobiliary: Yes: Hepatitis C (Untreated) Musculoskeletal: Yes: Chronic low back pain - Past Surgical History Additional Surgical History: Neck surgery (spinal fusion) C5-C6 - Alcohol/Substance Use Hx Alcohol Use: Yes (In past: social) History of Substance Use: reports: Cocaine (quit 30 + years ago), Heroin (Quit 30 + years ago) - Smoking History Smoking history: Never smoked Have you smoked in the past 12 months: No - Social History Usual Living Arrangement: Alone ADL: Independent 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 Place of : [facility] History of Recent Travel: No Home Medications - Allergies Allergies/Adverse Reactions: Allergies Allergy/AdvReac Type Severity Reaction Status Date / Time Penicillins Allergy Severe Swelling Verified 12/30/16 12:32 - Home Medications Home Medications: Ambulatory Orders Oxycodone HCl [Oxycontin] 30 mg PO DAILY 12/30/16 Oxycodone HCl/Acetaminophen [Percocet 5-325 mg Tablet] 1 - 2 tab PO BID Aspirin [ASA -] 81 mg PO DAILY tab.chew 01/01/17 Family Disease History - Family Disease History Family Disease History: Other: Father ( 41: Dental Abscess), Mother ( 84 : DM II, HTN), Brother (3 Bros. some with DM II), Sister (4 Sisters, some with DM II), Daughter (1 daughter, healthy) Other Family History: No family history of colorectal cancer or other GI malignancy Review of Systems - Review of Systems Constitutional: reports: Unintentional Wgt. Loss Cardiovascular: denies: Chest Pain Respiratory: denies: SOB Gastrointestinal: denies: Abdominal Pain, Constipation, Diarrhea, Dysphagia, Melena, Rectal Bleeding, Vomiting Genitourinary: reports: Frequency Physical Exam-GI Vital Signs: Vital Signs Temperature 98 F 01/01/17 10:00 Pulse Rate 64 01/01/17 10:00 Respiratory Rate 18 01/01/17 10:00 Blood Pressure 122/78 01/01/17 10:00 O2 Sat by Pulse Oximetry (%) 100 01/01/17 09:00 Constitutional: Yes: Calm Eyes: No: Sclera Icterus Cardiovascular: Yes: Regular Rate and Rhythm. No: Murmur Respiratory: Yes: CTA Bilaterally Gastrointestinal Inspection: No: Distention, Scars ...Auscultate: Yes: Normoactive Bowel Sounds ...Palpate: No: Hepatomegaly, Splenomegaly ...Percussion: No: Tympanitic ...Rectal Exam: Yes: Guaiac Negative (Light brown stool), Other (2 + prostate) Edema: No Neurological: Yes: Alert, Oriented Labs: CBC, BMP 01/01/17 05:35 01/01/17 05:35 INR, PTT INR 1.02 (0.82-1.09) 12/30/16 13:05 Imaging - Results Ultrasound: Report Reviewed Problem List - Problems (1) Liver mass, right lobe Assessment/Plan: I discussed the finding with Mr. An and explained that while this may relfect a benign process, a cancer cannot be excluded at this time, particularly in the setting of his weight loss and untreated hepatitis C. Regardless of this, he does not want to stay at [facility] for further work-up including CT scan. He is amenable to outpatient follow-up. 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 Per Dr. Oliveira Mr. An took 3 weeks of Harvoni and never came back to the office. He also had sent a letter to Dr. Elena Hauser, Mr. An's PCP, explaining his failure to comply with therapy and a need to find alternate GI care. Mr. An apparently also no showed to the office about [address] Oliveira referred him for continued GI care and follow-up of his liver lesion to the GI clinic at [facility] [phone]. The GI clinic at [facility] was contacted, Michelle was spoken to and Mr. An's contact information was given to her. He was given a 1:30 appointment tomorrow at the clinic. I personally explained this to Mr. An and emphasized the importance of the need for follow-up of the newly noted liver lesion. He said that he undersatood, knew where [facility] was and that he would do so. Clinic number provided in discharge summary. A copy of the US report and labs were given to Mr. An as well. Code(s): R16.0 - HEPATOMEGALY, NOT ELSEWHERE CLASSIFIED (2) Enlarged prostate Assessment/Plan: Noted on exam. I explained this to Mr. An and explained that he will need follow-up with his PMD regarding this. He stated that he understood and would do so Code(s): N40.0 - BENIGN PROSTATIC HYPERPLASIA WITHOUT LOWER URINRY TRACT SYMP
--- NOTE | 2017-01-01 19:50 | DS ---
Physical Exam: LABS Laboratory Results - last 24 hr Selected Entries 12/30/16 12/30/16 12/30/16 13:38 13:50 14:00 Temperature 94.9 F L 95 F L Blood Pressure 98/66 O2 Sat by Pulse Oximetry (%) Oxygen Delivery Method 12/30/16 12/30/16 12/30/16 15:00 15:08 18:42 Temperature 96.3 F L 95.5 F L Blood Pressure 116/70 O2 Sat by Pulse Oximetry (%) Oxygen Delivery Method 12/31/16 12/31/16 12/31/16 02:00 06:00 10:00 Temperature 99.5 F 98.1 F Blood Pressure 132/76 O2 Sat by Pulse Oximetry (%) Oxygen Delivery Method 12/31/16 01/01/17 01/01/17 22:00 05:52 09:00 Temperature 98.2 F 98 F Blood Pressure 128/86 O2 Sat by Pulse 100 Oximetry (%) Oxygen Delivery Room Air Method 01/01/17 10:00 Temperature Blood Pressure 122/78 O2 Sat by Pulse Oximetry (%) Oxygen Delivery Method Laboratory Tests 12/30/16 12/31/16 12/31/16 13:00 05:50 05:50 WBC 3.7 L 3.3 L Potassium 3.8 01/01/17 01/01/17 05:35 05:35 WBC 3.1 L Potassium 3.4 L 12/30- UA NEGATIVE 12/30- CXR NEGATIVE FOR ACUTE PATHOLOGY 12/31- ABDOMEN U/S- RIGHT HEPATIC LOBE MASS (FATTY LIVER VS HCC). RECOMMEND CONTRAST ENHANCED MRI 01/01- ECHO- EF 68, LV FUNCTION IS NORMAL, NO REGIONAL WALL MOTION ABNORMALITIES HOSPITAL COURSE: Date of Admission:12/30/16 Date of Discharge: 01/01/17 61 y.o. M with pmh of HCV, HTN, spinal stenosis, and chronic lower back pain presented with chest pain, diaphoresis, and weakness. Patient took his friend's daughter to the supermarket. In the parking lot, he became diaphoretic, felt overheated, and started sweating. He felt he could not get out of the car so he called an ambulance. During this time, patient had an episode of 6/10, intermittent, pressure like left sided chest pain radiating across his chest. Patient has no previous history of cardiovascular disease or cardiac catheterizations. Patient underwent stress test in 07/2015, which was negative. In the ED, he was found to be lactic acidemic to 2.4, hypoglycemic to 46, hypothermic (93.7), and hypotensive (88/61). He was admitted for r/o acs and sepsis 06/29 to unknown etiology. Patient was ruled out for acs with troponins negative x3. Echocardiogram was unremarkable. For sepsis, patient started on vancomycin 1g and aztreonam 3g IV in the ED. He was given IVF. His hypotension, hypothermia, and hypoglycemia resolved. His lactic acid improved to 1.5. Source of lactic acidemia was not able to be identified. Patient had a 15 lb weight loss in the last 2 months and a hx of HCV. Abdominal us was performed. Found to have a right hepatic lobe mass. Patient was discharged with close f/u with GI. He will f/u on SundayJanuary 02 at 130 pm at [facility]. Patient was provided with his records and was told to bring them along with him to the appointment. Minutes to complete discharge: 30 Discharge Summary Reason For Visit: SEPSIS CHEST PAIN Current Active Problems Chest pain (Acute) Hypotension (Acute) Hypothermia (Acute) Liver mass, right lobe (Acute) Sepsis (Acute) Enlarged prostate (Chronic) HTN (hypertension) (Chronic) Condition: Improved - Instructions Diet, Activity, Other Instructions: You were in the hospital because you were found to have low blood sugar, low blood pressure, and low temperature. Please follow up with your primary care provider within 1 week. Please follow up tomorrow at [facility] ([address] [place] [address]) with a patient financial advocate regarding your liver mass. YOUR APPOINTMENT IS SCHEDULED FOR 1:30 pm, Please drink plenty of fluids. Continue the following medications: -Oxycontin 30 mg by mouth daily -Oxycodone/acetaminophen 1-2 tabs by mouth two times per day -Aspirin 81 mg by mouth daily If you have chest pain, shortness of breath, or any new symptoms please come back to the hospital immediately. Referrals: Elena Hauser [Primary Care Provider] - Disposition: HOME - Home Medications Comprehensive Discharge Medication List: Ambulatory Orders Oxycodone HCl [Oxycontin] 30 mg PO DAILY 12/30/16 Oxycodone HCl/Acetaminophen [Percocet 5-325 mg Tablet] 1 - 2 tab PO BID Aspirin [ASA -] 81 mg PO DAILY tab.chew 01/01/17 Problem List - Problems (1) Chest pain (2) Sepsis (3) Back pain (4) Hypoglycemia (5) HTN (hypertension) (6) Hypotension (7) Hypothermia This patient is new to me today: No Emergency Visit: No Critical Care patient: No - Discharge Referral Referred to [facility] No
== END 2017-01-01 17:29 | disposition home or self-care (01) | DRG 720 ==
LOC: JER 12:25 → JERBED 16:24 → J4W 18:35
PROVIDERS: ADMIT Internal Medicine; ATTEND Internal Medicine
DX: A41.9 Sepsis, unspecified organism (principal); I95.9 Hypotension, unspecified; R16.0 Hepatomegaly, not elsewhere classified; N40.0 Benign prostatic hyperplasia without lower urinary tract symptoms; I10 Essential (primary) hypertension; E16.2 Hypoglycemia, unspecified; R53.1 Weakness; M54.5 Low back pain; R07.89 Other chest pain; M48.06 Spinal stenosis, lumbar region; E87.2 Acidosis; R63.4 Abnormal weight loss; Z68.21 Body mass index [BMI] 21.0-21.9, adult; B19.20 Unspecified viral hepatitis C without hepatic coma; M47.10 Other spondylosis with myelopathy, site unspecified; G95.20 Unspecified cord compression
CPT/HCPCS: 36415; 71010-TC; 76700-TC; 80048; 80053; 80061; 81003; 82140; 82553; 82803; 83605; 83690; 83721; 83735; 83880; 84100; 84439; 84443; 84484; 85025; 85027; 85610; 85730; 86850; 86900; 86901; 87040; 93005; 93010; 93306-TC; 99285-25; J1644

== ENCOUNTER 2018-05-27 19:41 | Emergency (ER) | payer OTHER ==
[2018-05-27 19:46] VITALS: BP 115/79; PULSE 62; TEMP 97.9; BMI 19.7
--- NOTE | 2018-05-27 19:57 | PDOC ---
History of Present Illness - General Stated Complaint: WEAKNESS Time Seen by Provider: 05/27/18 19:56 History Source: Patient Exam Limitations: No Limitations - History of Present Illness Initial Comments: Pt is a 63 yo M, with PMH of chronic back pain/L-sided deficits (2/2 C5-C6 fracture 2000), Hep C, HTN, and "mini strokes," (TIA?), who is presenting via EMS with complaints of generalized weakness, leg cramps, and chest tightness. Pt states he has been "feeling weak all over" and having more cramps in his legs than usual over the past week. Just before presentation, the pt states he "felt stiff all over" and felt tightness in his chest, so he called EMS. He denies falling, and had no chest pain, diaphoresis, or vomiting at that time. He does admit to drinking more alcohol over the past month, eating and drinking less water, and that he has not been taking his BP medication as he ran out a few week ago. Pt denies any fevers/chills, headache, vision changes, syncope, chest pain, palpitations, nausea/vomiting, abdominal pain, urinary symptoms, diarrhea/constipation, or leg swelling. EMS provided 1 L IV NS and placed IV. Pt can normally ambulate in the house with a cane, has a walker for emergencies. Can perform his daily activities on his own. Social: Pt drinks ~1/2 pint per day and uses THC. No cigarettes smoking. Pt denies any recent travel or sick contacts. Surgical: C5-C6 spinal surgery Family: no relevant history 05/27/18 21:25 05/27/18 21:32 Past History - Travel Traveled outside of the country in the last 30 days: No Close contact w/someone who was outside of country & ill: No - Past Medical History Allergies/Adverse Reactions: Allergies Allergy/AdvReac Type Severity Reaction Status Date / Time Penicillins Allergy Severe Swelling Verified 01/09/18 01:16 Home Medications: Ambulatory Orders Oxycodone HCl [Oxycontin] 30 mg PO DAILY 12/30/16 Aspirin [ASA -] 81 mg PO DAILY tab.chew 01/01/17 Nitrofurantoin Macrocrystal [Macrodantin] 100 mg PO BID 5 Days #9 capsule Anemia: No Asthma: No Cancer: No Cardiac Disorders: No CVA: No COPD: No CHF: No Dementia: No Diabetes: No GI Disorders: No Disorders: No HTN: Yes Hypercholesterolemia: No Liver Disease: (HEP C) Seizures: No Thyroid Disease: No - Surgical History Abdominal Surgery: No Appendectomy: No Cardiac Surgery: No Cholecystectomy: No Lung Surgery: No Neurologic Surgery: No (cervical fusion) Orthopedic Surgery: Yes (discogenic dz s/p neck sx) - Immunization History Immunization Up to Date: Yes - Suicide/Smoking/Psychosocial Hx Smoking History: Unknown if ever smoked Have you smoked in the past 12 months: No Hx Alcohol Use: No Drug/Substance Use Hx: No Substance Use Type: None Hx Substance Use Treatment: No Review of Systems - Review of Systems Able to Perform ROS?: Yes Is the patient limited Persian proficient: No Constitutional: Yes: See HPI, Loss of Appetite, Weakness, Unintentional Wgt. Loss (over past few months ~5-10 lbs after diminished intake). No: Chills, Diaphoresis, Fever, Weight Stable HEENTM: No: Blurred Vision, Recent change in vision, Double Vision, Nose Congestion, Hearing Loss, Throat Pain, Difficulty Swallowing Respiratory: No: Cough, Orthopnea, Shortness of Breath, Wheezing Cardiac (ROS): Yes: See HPI, Chest Tightness. No: Chest Pain, Edema, Irregular Heart Rate, Lightheadedness, Palpitations, Syncope ABD/GI: Yes: Poor Appetite, Poor Fluid Intake. No: Blood Streaked Bowels, Constipated, Diarrhea, Nausea, Vomiting, Abdominal cramping : No: Burning, Dysuria, Frequency, Pain, Urgency Musculoskeletal: Yes: See HPI, Back Pain (chronic), Neck Pain (chronic). No: Joint Pain, Joint Swelling Integumentary: No: Rash Neurological: Yes: Paresthesia (residual, worst in L arm 2/2 cervical spinal surgery), Weakness. No: Headache, Seizure, Unsteady Gait, Ataxia, Dizziness Psychiatric: Yes: Change in Appetite (with drinking alcohol). No: Sleep Pattern Change Endocrine: No: Increased Urine, Change in Weight Hematologic/Lymphatic: No: Anemia, Blood Clots, Easy Bleeding, Easy Bruising All Other Systems: Reviewed and Negative *Physical Exam - Vital Signs Last Vital Signs Temp Pulse Resp BP Pulse Ox 97.9 F 62 18 115/79 98 05/27/18 19:42 12/31/18 19:42 05/27/18 19:42 05/27/18 19:42 05/27/18 19:42 - Physical Exam General Appearance: Yes: Nourished, Appropriately Dressed, Thin. No: Apparent Distress HEENT: positive: EOMI, MICHAEL, Normal ENT Inspection, Normal Voice, Pharynx Normal , Hearing Grossly Normal. negative: Scleral Icterus (R), Scleral Icterus (L), Pharyngeal Erythema, Tonsillar Exudate, Tonsillar Erythema, Nasal Congestion Neck: positive: Trachea midline, Normal Thyroid, Supple. negative: Tender, Rigid, Decreased range of motion, Lymphadenopathy (R), Lymphadenopathy (L), Rigidity Respiratory/Chest: positive: Decreased Breath Sounds (diminished posteriorly, no crackles or wheezing). negative: Chest Tender, Lungs Clear, Normal Breath Sounds, Respiratory Distress, Accessory Muscle Use, Crackles, Wheezing Cardiovascular: positive: Regular Rhythm, Regular Rate, S1, S2. negative: Edema , JVD, Murmur Vascular Pulses: Carotid (R): 4+, Carotid (L): 4+ Gastrointestinal/Abdominal: positive: Normal Bowel Sounds, Flat, Soft. negative : Tender, Organomegaly, Pulsatile Mass, Distended, Guarding, Rebound Rectal Exam: positive: deferred Lymphatic: negative: Adenopathy, Tenderness Musculoskeletal: positive: Normal Inspection. negative: CVA Tenderness Extremity: positive: Normal Capillary Refill, Normal Inspection, Normal Range of Motion, Pelvis Stable. negative: Tender, Pedal Edema, Calf Tenderness Integumentary: positive: Normal Color, Dry, Warm. negative: Jaundice, Clammy, Diaphoresis, Rash Neurologic: positive: piano case maker II-XII NML intact, Fully Oriented, Alert, Normal Mood/ Affect, Normal Response, Motor Strength 5/5, Other (Residual deficits with contracture of L hand and weakness. Pt states chronic for him. Muscle strength and sensation otherwise intact.). negative: EOM Palsy, Facial Droop, Numbness, Sensory Deficit Moderate Sedation - Procedure Monitoring Vital Signs: Procedure Monitoring Vital Signs Temperature 97.9 F 05/27/18 19:42 Pulse Rate 62 05/27/18 19:42 Respiratory Rate 18 05/27/18 19:42 Blood Pressure 115/79 05/27/18 19:42 O2 Sat by Pulse Oximetry (%) 98 05/27/18 19:42 ED Treatment Course - LABORATORY CBC & Chemistry Diagram: 05/27/18 20:45 05/27/18 20:45 Medical Decision Making - Medical Decision Making Pt was seen at bedside, also will be seen by attending Dr. Salazar. Pt presenting with complaints of generalized weakness, leg cramps, and chest tightness. Pt states he has been "feeling weak all over" and having more cramps in his legs than usual over the past week. Just before presentation, the pt states he "felt stiff all over" and felt tightness in his chest. He denies falling, and had no chest pain, diaphoresis, or vomiting at that time. He does admit to drinking more alcohol over the past month, eating and drinking less water, and that he has not been taking his BP medication as he ran out a few week ago. Pt denies any fevers/chills, headache, vision changes, syncope, chest pain, palpitations, nausea/vomiting, abdominal pain, urinary symptoms, diarrhea/ constipation, or leg swelling. PE showed pt lying comfortably, afebrile, vitals stable. Heart sounds clear, no murmur, no JVD, no b/l pitting edema. Diminished breath sounds posteriorly b/l, no wheezing or crackles. No abdominal or CVA tenderness. CN intact. Residual deficits in L hand from spinal surgery in the past. Considering electrolyte abnormalities vs infection (pneumonia, influenza, URI), vs UTI. Minimal concern for additional stroke/TIA as pt has no FNDs and weakness has been associated with muscle cramping. Weakness more likely due more to dehydration and nutritional deficiency since pt has been drinking more alcohol. Ordered work-up including CBC, CMP, Mg, trop, ECG, UA, and chest x-ray. Provided 1 g ofirmev and duoneb treatment for improvement of pain and chest tightness. Will continue to reassess pt and monitor for symptomatic improvement. 05/27/18 21:11 Pt states already feeling much improved since the 1L IV NS he was provided on the ambulance. ECG showed NSR, intervals WNL. No significant changes from prior ECG. 05/27/18 21:16 CBC: WNL CMP: minor electrolyte imbalances, troponin negative -- pt can follow with PCP appointments. Chest x-ray appeared clear with no focal infiltrates -- pt afebrile, no WBC. UA showed +nitrites +WBC -- will give first dose of macrobid (based on prior culture sensitivity) in ER. Macrobid sent to pt pharmacy. Provided 1 tablet of percocet, as pt states out of his home medicine. Advised pt to refill pain control medicine with PCP follow-up. Pt could not remember his home medication regiment for HTN, so could not refill medicines for pt. Pt has PCP appointment on and follow-up with Dr. Fallon on 06/01. Pt states he is much improved since fluids and duoneb treatment. Reassessment showed pt moving better air in posterior singh. Safe for discharge. 05/27/18 22:41 *DC/Admit/Observation/Transfer Diagnosis at time of Disposition: Weakness Urinary tract infection Qualifiers: Urinary tract infection type: site unspecified Hematuria presence: with hematuria Qualified Code(s): N39.0 - Urinary tract infection, site not specified - Discharge Dispostion Disposition: HOME Condition at time of disposition: Improved Decision to Admit order: No - Prescriptions Prescriptions: Nitrofurantoin Macrocrystal [Macrodantin] 100 mg PO BID 5 Days #9 capsule - Referrals Referrals: Elena Hauser [Non Staff, Medical] - Evelyn Vance MD [Staff Physician] - - Patient Instructions Printed Discharge Instructions: DI for Urinary Tract Infection (UTI) Additional Instructions: You were seen in the ER today for weakness and chest tightness. Please follow- up with your primary care doctor and neurology within 1-2 days to discuss your visit and make sure your symptoms have improved. Please return to the ER if you have any worsening pain, development of fevers or chills, loss of consciousness , inability to tolerate food or fluids, or any other concerns. We have sent an antibiotic to your pharmacy for urinary tract infection. Please take this medicine as prescribed for 5 days. Please also keep your follow up appointments with Dr. Hauser and Leeanne this week. - Post Discharge Activity
[2018-05-27] MEDS ORDERED: ACETAMINOPHEN 1000 MG/100 ML VIAL (NON FORMULARY) IVPB ONE (20:34)
[2018-05-27] MEDS ORDERED: ACETAMINOPHEN INJECTION 100 ML IVPB ONE (21:05)
[2018-05-27] MEDS ORDERED: ALBUTEROL SO4 2.5/IPRATROPIUM 0.5 INH SOL 3 ML VIAL.NEB. NEB ONE ×2 (21:14→21:16)
[2018-05-27 21:17] LABS: BASO % 1.3 % (0-2.0); EOS % 2.1 % (0-4.5); HEMATOCRIT 37.8 % (35.4-49); HEMOGLOBIN 12.2 GM/dL (11.7-16.9); LYMPH % 26.1 % (8-40); MCH 30.3 pg (25.7-33.7); MCHC 32.2 g/dl (32.0-35.9); MEAN PLT VOLUME 10.1 fl (7.5-11.1); MONO % 11.1 % (3.8-10.2); NEUT % 59.4 % (42.8-82.8); PLATELET COUNT 136 K/MM3 (134-434); RBC 4.03 M/mm3 (4.00-5.60); RDW 13.6 % (11.9-15.9); WHITE BLOOD COUNT 4.5 K/mm3 (4.0-10.0)
[2018-05-27 21:53] LABS: ALBUMIN 3.2 g/dl (3.4-5.0); ALK PHOS 62 U/L (45-117); ANION GAP 8 MMOL/L (8-16); BILIRUBIN,TOTAL 0.3 mg/dL (0.2-1); BLOOD UREA NITROGEN 7 mg/dL (7-18); CALCIUM 7.6 mg/dL (8.5-10.1); CHLORIDE 110 mmol/L (98-107); CO2 25 mmol/L (21-32); CREATININE 0.8 mg/dL (0.55-1.3); GLUCOSE,RANDOM 110 mg/dL (74-106); MAGNESIUM 1.7 mg/dL (1.8-2.4); POTASSIUM 3.5 mmol/L (3.5-5.1); SGOT/AST 66 U/L (15-37); SGPT/ALT 43 U/L (13-61); SODIUM 143 mmol/L (136-145); TOT PROT 6.2 g/dl (6.4-8.2)
[2018-05-27 21:55] LABS: URINE APPEARANCE CLEAR; URINE BILIRUBIN NEGATIVE (<2.0 mg/dL); URINE COLOR YELLOW; URINE GLUCOSE (UA) NEGATIVE (NEGATIVE); URINE KETONE NEGATIVE (NEGATIVE); URINE LEUK ESTERASE NEGATIVE (NEGATIVE); URINE NITRITE POSITIVE (NEGATIVE); URINE PROTEIN NEGATIVE (NEGATIVE); URINE UROBILINOGEN NEGATIVE mg/dL (0.2-1.0)
[2018-05-27 22:10] LABS: EPI CELLS RARE /HPF (FEW); URINE BACTERIA RARE /hpf (NONE SEEN); URINE HYALINE CAST 7 /lpf; URINE MUCUS RARE; YEAST RARE
[2018-05-27] MEDS ORDERED: NITROFURANTOIN MACROCRYSTAL 50 MG CAPSULE (FP) PO STA (22:34)
[2018-05-27] MEDS ORDERED: NITROFURANTOIN MACROCRYSTAL 50 MG CAPSULE (FP) ONE (22:37)
--- NOTE | 2018-05-27 22:49 | PDOC ---
Attending Attestation - HPI HPI: 05/27/18 23:09 The patient is a 63 year old male with a significant past medical history of hep C, Hypertension, spinal stenosis, chronic lower back pain who presents to the emergency department with generalized weakness since earlier today. The patient reports that he has been experiencing some associated increased leg weakness for the past few weeks without swelling. The patient also reports some chest tightness today which prompted him to come to the ED. The patient reports an increase in alcohol intake and decrease in water for the past month as well as being non compliant with his blood pressure medication secondary to running out of refills a week ago. The patient denies any vision change, dizziness, fall , chest pain, diaphoresis or vomiting. The patient denies any other symptoms or complaints. Documentation prepared by Lelia Us, acting as medical instrument technician for Ashley Salazar MD. <Lelia Us - Last Filed: 05/27/18 23:09> - Resident Resident Name: Yanci Thomas - ED Attending Attestation I have performed the following: I have examined & evaluated the patient, The case was reviewed & discussed with the resident, I agree w/resident's findings & plan, Exceptions are as noted - HPI HPI: 05/27/18 22:48 this 63 yo male BIBA for leg cramps and gen weakness and chest tightness - Physicial Exam PE: 05/27/18 22:49 thin 63 p/w intermittent leg cramps x 2 weeks ,generalized fatigue( admits to increased etoh use) and some chest tightness but no difficulties breathing head ncat neck supple lungs no wheezing,no crackles cvs [id number] no gallops,no rub,no appreciable murmers abd flat,nontender ext no edema,no erythema,no wounds skin warm and dry neuro axox3,chronic weak mild left hand grasp, no visual deficits, no field cuts,no ataxia - Medical Decision Making 05/28/18 00:50 no ekg changes,neg trop UA+ UTI and started on ABX pt recieved IVF <Ashley Salazar - Last Filed: 05/28/18 00:51>
--- NOTE | 2018-05-29 19:08 | EKG ---
Test Reason : Blood Pressure : / mmHG Vent. Rate : 061 BPM Atrial Rate : 061 BPM P-R Int : 154 ms QRS Dur : 096 ms QT Int : 448 ms P-R-T Axes : 000 076 050 degrees QTc Int : 450 ms POOR DATA QUALITY, INTERPRETATION MAY BE ADVERSELY AFFECTED NORMAL SINUS RHYTHM NORMAL ECG WHEN COMPARED WITH ECG OF 08-JAN-2018 18:59, NONSPECIFIC T WAVE ABNORMALITY HAS REPLACED INVERTED T WAVES IN ANTERIOR LEADS NONSPECIFIC T WAVE ABNORMALITY NOW EVIDENT IN LATERAL LEADS Confirmed by SALBADOR KIM MD ([id number]) on 05/29/2018 7:08:14 PM Referred By: Confirmed By:SALBADOR KIM MD
== END 2018-05-27 22:52 | disposition home or self-care (01) ==
LOC: JER 19:41
PROC: 3E033NZ Introduction of Analgesics, Hypnotics, Sedatives into Peripheral Vein, Percutaneous Approach (ICD-10-PCS; principal; 2018-05-27)
PROC: 3E0F7GC Introduction of Other Therapeutic Substance into Respiratory Tract, Via Natural or Artificial Opening (ICD-10-PCS; 2018-05-27)
DX: N39.0 Urinary tract infection, site not specified (principal); I10 Essential (primary) hypertension; B18.2 Chronic viral hepatitis C; Z86.73 Personal history of transient ischemic attack (TIA), and cerebral infarction without residual deficits; M54.5 Low back pain; G89.29 Other chronic pain; Z98.1 Arthrodesis status; R26.89 Other abnormalities of gait and mobility; Z99.89 Dependence on other enabling machines and devices
CPT/HCPCS: 36415; 71046-TC-FY; 80053; 81003; 81015; 83735; 84484; 85025; 87804; 93005; 93010; 94640; 96374; 99282-25; J0131

== ENCOUNTER 2018-07-21 15:01 | Inpatient (IN) | payer OTHER ==
--- NOTE | 2018-07-21 15:15 | PDOC ---
History of Present Illness - General Chief Complaint: Pain Stated Complaint: ABD PAIN Time Seen by Provider: 07/21/18 15:14 History Source: Patient - History of Present Illness Initial Comments: 07/21/18 15:16 The patient is a 63 year old male with a PMH of Hepatitis C, HTN, Spinal Stenosis, chronic lower back pain and cervical disc disease (w/chronic LUE numbness)who presents to the ED c/o abdominal pain. Brother @ bedside assists in history. Pain is intermittent, non-qualifiable, exacerbated by breathing and started acutely yesterday. Three episodes of loose stool today (normal is 1 BM daily) as well as increased urinary urgency w/o hematuria/dysuria. No fevers/chills H/o recent evaluation at [facility] for which he stated he had an MRI and was told he needed surgery. Tolerating PO intake, last meal rice and beans earlier today. Brother notes patient has been drinking heavily for the last 1 year and states he is unable to take care of himself including cooking and cleaning. Allergy: Penicillin Surgical: none reported Social: former smoker, daily alcohol, h/o marijuana/cocaine/opiod PMD: Dr. Elena Hauser As per EMR, patient last evaluated in our ED in 04/2018 for chest tightness and weakness. Troponin and other labs normal, patient discharged home with supportive care. Past History - Past Medical History Allergies/Adverse Reactions: Allergies Allergy/AdvReac Type Severity Reaction Status Date / Time Penicillins Allergy Severe Swelling Verified 01/09/18 01:16 Home Medications: Ambulatory Orders Morphine *Sr* [Ms Contin -] 15 mg PO Q8H 07/21/18 Oxycodone HCl/Acetaminophen [Percocet 10-325 mg Tablet] 1 each PO BID 07/21/18 Anemia: No Asthma: No Cancer: No Cardiac Disorders: No CVA: No COPD: No CHF: No Dementia: No Diabetes: No GI Disorders: No Disorders: No HTN: Yes Hypercholesterolemia: No Liver Disease: (HEP C) Seizures: No Thyroid Disease: No Other medical history: chronic back pain, chronic leg pain - Surgical History Abdominal Surgery: No Appendectomy: No Cardiac Surgery: No Cholecystectomy: No Lung Surgery: No Neurologic Surgery: No (cervical fusion) Orthopedic Surgery: Yes (discogenic dz s/p neck sx) - Immunization History Immunization Up to Date: Yes - Suicide/Smoking/Psychosocial Hx Smoking History: Unknown if ever smoked Have you smoked in the past 12 months: No Hx Alcohol Use: No Drug/Substance Use Hx: No Substance Use Type: None Hx Substance Use Treatment: No Review of Systems - Review of Systems Constitutional: Yes: Chills. No: Fever HEENTM: No: Recent change in vision Respiratory: Yes: Shortness of Breath. No: Cough, Stridor, Wheezing Cardiac (ROS): No: Chest Pain, Lightheadedness, Palpitations, Syncope ABD/GI: Yes: Diarrhea, Nausea, Vomiting, Abdominal cramping. No: Constipated : Yes: Frequency. No: Burning, Dysuria Musculoskeletal: Yes: Back Pain Neurological: Yes: Numbness, Pre-Existing Deficit *Physical Exam - Physical Exam Comments: 07/21/18 21:46 Neuro: A&O x3, 4+ B/L UE strength, 5+ B/L LE strength, decreased sensation on volar surface of hand in C6/C7 Median nerve distribution CV: S1/S2, no M/R/G Abdomen: soft, roving TTP, (+) bowel sounds Lungs: CLTA B/L, no wheeze/crackle Skin: intact, no rash/ulcer ED Treatment Course - LABORATORY CBC & Chemistry Diagram: 07/21/18 15:50 07/21/18 15:50 Medical Decision Making - Medical Decision Making 07/21/18 17:06 63 year old male with abdominal pain. Initally hypertensive, then hypotensive ( B/L SPB 70's/50's). Bedside U/S showed normal sized aorta, pelvic kidney w/o hydronephrosis. Roving abdominal tenderness. Broad DDx including infectious ( Cystitis/pyelonephritis, Influenza, PNA) vs. acute abdomen (cholecystitis, early appendicitis) vs. non-emergent GI pathology (biliary colic, PUD, gastritis, pancreatitis) vs trauma (less likely as FAS negative). Though isolated hypotensive readings and h/o smoking, age 63, beside U/S makes aortic aneursym less like. Also consider substance withdrawal as patient reports he hasn't taken Percocet in 3-[address] Abdomen w/PO contrast, IV hydration, Lactic Acid, Lipase, CBC/CMP as well as UA/UCx. Percocet for pain control pending repeat BP Reassess. 07/21/18 17:11 Critical Lab value: Lactic 2.4 07/21/18 17:[address] [facility] - patient evaluated on 07/05/18. Elevated AST, other labs unremarkable; Alcohol 177, UTox positive for Opiods, Canniboids. Patient admitted for failture to thrive, UTI. S/p Ceftriaxone. 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 Will fax MRI report to ED. 07/21/18 17:44 Repeat BP 99/74 Normal EF in 2016; will give additional 1 L Will give Dilaudid in light of patient's hypotension UA clean CBC/CMP unremarkable 07/21/18 18:24 Repeat BP 109/80 PO contrast @ 2 hour ilan @ 1850 07/21/18 19:17 Patient @ CT 07/21/18 20:10 CT shows trace L pleural effusion; mild urinary bladder thickening, no diverticulitis, appendicitis, SBO, free fluid, free air. Will page hospitalist for admission Repeat Lactic Acid pending 07/21/18 20:22 Patient reassessed at beside, Repeat BP 109/74, other VSS. Less likely withdrawal given stable VS. Requesting PO intake Patient and patient's brother @ bedside counseled on plan of care, amenable to admission 07/21/18 20:38 Case d/w Dr. Epi Collado (Resident) will admit to inpatient hospitalist service for inability to ambulate for 72 hours with likely disposition to [facility] Clinical Impression: Inability to ambulate, Failure to thrive *DC/Admit/Observation/Transfer Diagnosis at time of Disposition: Unable to ambulate - Discharge Dispostion Condition at time of disposition: Fair Decision to Admit order: Yes - Referrals - Patient Instructions - Post Discharge Activity
[2018-07-21] MEDS ORDERED: SODIUM CHLORIDE 0.9% 1000 ML INFUS.BAG IV ONE (16:09)
[2018-07-21 16:25] LABS: BASO % 0.9 % (0-2.0); EOS % 0.9 % (0-4.5); HEMATOCRIT 39.3 % (35.4-49); HEMOGLOBIN 13.6 GM/dL (11.7-16.9); LYMPH % 28.3 % (8-40); MCH 32.8 pg (25.7-33.7); MCHC 34.6 g/dl (32.0-35.9); MEAN CELL VOLUME 94.7 fl (80-96); MEAN PLT VOLUME 11.3 fl (7.5-11.1); MONO % 11.9 % (3.8-10.2); PLATELET COUNT 155 K/MM3 (134-434); RBC 4.15 M/mm3 (4.00-5.60); RDW 13.5 % (11.9-15.9); WHITE BLOOD COUNT 6.1 K/mm3 (4.0-10.0)
[2018-07-21 16:38] LABS: URINE APPEARANCE CLEAR; URINE BILIRUBIN NEGATIVE (<2.0 mg/dL); URINE COLOR LTYELLOW; URINE GLUCOSE (UA) NEGATIVE (NEGATIVE); URINE KETONE NEGATIVE (NEGATIVE); URINE LEUK ESTERASE NEGATIVE (NEGATIVE); URINE NITRITE NEGATIVE (NEGATIVE); URINE PROTEIN NEGATIVE (NEGATIVE)
[2018-07-21 16:50] LABS: ALBUMIN 3.4 g/dl (3.4-5.0); ALK PHOS 48 U/L (45-117); ANION GAP 8 MMOL/L (8-16); BILIRUBIN,TOTAL 0.5 mg/dL (0.2-1); BLOOD UREA NITROGEN 21 mg/dL (7-18); CALCIUM 8.1 mg/dL (8.5-10.1); CHLORIDE 103 mmol/L (98-107); CO2 27 mmol/L (21-32); GLUCOSE,RANDOM 86 mg/dL (74-106); N-TERMINAL BNP 49.6 pg/ml (5-125); POTASSIUM 4.4 mmol/L (3.5-5.1); SGOT/AST 43 U/L (15-37); SGPT/ALT 29 U/L (13-61); SODIUM 138 mmol/L (136-145); TOT PROT 6.8 g/dl (6.4-8.2)
--- NOTE | 2018-07-21 17:18 | PDOC ---
Attending Attestation - Resident Resident Name: AustinMelissa - ED Attending Attestation I have performed the following: I have examined & evaluated the patient, The case was reviewed & discussed with the resident, I agree w/resident's findings & plan, Exceptions are as noted - HPI HPI: 07/21/18 17:12 63 yo male h/o HTN HLD, chronic cervical disc disease, hep C , prior TIA, lower pelvic kidney, recently admitted to [facility], here with /co abd pain . epigastric left sided. states worse with deep breath. no f/c. had 3 loose stools today. decreased po intake. per brother, he recent had stresssors, has been drinking heavily, ran out of percocet 2 days ago, and having frequent falls. states today he was unable to walk with walker due to weakness in his hands and legs. pt states he has had weakness in his hands for > 6 mo. has been offered surgical disease for his neck but declines. no cough no cp. no other complaints. reports increased urinary frequency, no dysuria. - Physicial Exam PE: 07/21/18 17:14 awake alert lungs clear bilaterally heart rrr no mrg abd soft mild epigastric luq ttp. no rebound no guarding. ext wwp. uext bilat 4/5. decreased sesnation to light tough left thumb, and index finger bilat lower ext ext 4/5. sensation intact throught lower ext. skin no rash. nuero alert oriented x 3. - Medical Decision Making 07/21/18 17:16 pt with chronic cervical disc disease, and weakness here with abd pain. diarrhea. and pain. differential pancreatitis, cholecystitis cholelithaisis, uti, pyelo, narcotic withdrawal. recent falls traumtic injuries considered but no ff on fast exam. plan ct a/p will try to call [facility] for results. pt states had recent mri there. likley upper ext strength chronic. labs lipase . pain control iv hydration. pt signed out to dr beck, pending labs and ct. Heart Score/ECG Review #1 General ECG Interpretation: Sinus Rhythm, Normal Rate, Normal Intervals, No acute ischemic changes
[2018-07-21] MEDS ORDERED: SODIUM CHLORIDE 0.9% 500 ML INFUS.BAG IV ONE ×2 (17:30→17:44)
[2018-07-21] MEDS ORDERED: HYDROmorphone HCL CARPU-JECT 2 MG/1 ML DISP.SYRIN IVPUSH ONE (17:42)
[2018-07-21] MEDS ORDERED: HYDROmorphone HCl 2 MG/ML VIAL ONE (17:48)
[2018-07-21 18:01] LABS: LIPASE 424 U/L (73-393)
[2018-07-21 19:36] LABS: PLATELET ESTIMATE ADEQUATE
--- NOTE | 2018-07-21 20:35 | PN ---
Teaching Attending Note Name of Resident: Guerline Nevarez ATTENDING PHYSICIAN STATEMENT I saw and evaluated the patient. I reviewed the resident's note and discussed the case with the resident. I agree with the resident's findings and plan as documented. SUBJECTIVE: Seen and examined with resident; please refer to their documentation for further historical information. Briefly, this is a 63 y/o man presenting to the ER with a CC of waxing and waning abdominal pain for several days as well as LE pain and inability to ambulate. He has been out of his Percocet since he was discharged from [facility] last week (he is unsure why he was there; ER called [facility] who informed them that MRI was done there for pain showing congenital spinal stenosis exacerbated by DJD and neuroforaminal stenosis L4-L5 ; report is pending). Abdominal pain is somewhat chronic. No acutal weakness causing issues with ambulation but more pain. He tells me he didn't wish for surgery due to him having bad results from his cervical fusion that was done in [place]. He tells me that he didn't followup for his HV but wants to now. 10 sys ROS done and negative aside from HPI PMH (liver mass, hepatitis C, alcohol abuse, polysubstance abuse, HTN, cercical disc disease s/p c5-6 fusion, OBJECTIVE: VS, labs, and imaging reviewed NAD, AAO, resting comfortably in bed NC AT EOMI PERRLA RRR s1/2 no mgr Lungs CTAB, w/ sym exp Mildly tender, ND, +BS CN2-12 wnl, no fnd Normal mood, appropriate affect CT reviewed Old echo/EKG reviewed EKG reviewed ASSESSMENT AND PLAN: Patient presents to the ER for abdominal pain 1) Abdominal Pain -Very benign exam; CT nonspecific. Maybe from esophagitis, EtOH, etc? Recommend alcohol cessasion and PRN analgesics. 2) Elevated Lipase with thickened distal esophagus -Not at levels consistent with pancreatitis and no radiographic evidence of pancreatitis; he does have a history of EtOH abuse. Will go ahead and check his amylase and lipid profile and provide mild IV hydration overnight. Mild elevation of lipase could be from esophagitis, etc. so will start him on 40 protonix PO QD. Further endorses esophagitis with thickened distal esophagus. Will need EGD at some point 3) Loose Stools -Not jericho diarrhea, no colitis on CT, etc. States he was scoped several years ago by his old GI specialist. Check a lactoferrin. CT prelim read actually shows moderate stool in colon. 4) Hx Hepatitis C -Former patient of Dr. Oliveira; back in 2017 he was discharged from that practice due to not completing course of Harvoni; seen by Dr. Gomes and he was to followup outpatinet. Will obtain outpatinet records 5) Hepatic Lesion -Abd u/s 2017 showed a 3.3x3.5cm R-hepatic lobe mass -Has not followed up; we will check RUQ US and check tumor markers. Consider consulting GI in the AM as he says he is now willing for followup. 6) EtOH Abuse -CIWA protocol; thiamine and folate. 7) Congenital spinal stenosis and neuroforminal stenosis @L4-L5 with difficulty ambulating -MRI report being faxed over; on chronic pain medicaiton which will be continued. Non-specific neuro exam with no saddle anesthesia or bowel/bladder incont. -Consulting Neurosgy; aparently at [place]' they told him he'd need surgery -Bedrest, continue home meds. Neuro checks q4h. 8) Hx Polysubstance Abuse -Denies current use 9) HLD -Verify his home statin (aside from pain medication this is the only med he remembers) and continue. Consider checking lipids. 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 12) Dilated penile urethra -Negative UA; no complaints. Monitor and likely can followup with PCP Full Code
--- NOTE | 2018-07-21 21:34 | HP ---
<Guerline Nevarez - Last Filed: 07/22/18 19:05> CHIEF COMPLAINT:abdominal pain PCP:Dr. Elena Hauser HISTORY OF PRESENT ILLNESS: Patient is a 63 year old male with past medical history of HCV, HTN, spinal stenosis, chronic low back pain and cervical disorder, presented with sudden onset diffuse abdominal pain for 1 day. Patient reported abdominal pain was sudden, severe, intermittent, LUQ pain, worsened by deep breathing that started yesterday. This was accompanied by passage of loose watery stools. Patient denies any fever, chills, headache, nausea, vomiting, chest pain, SOB, urinary symptoms. Patient able to tolerate PO intake. Patient reported he ran out of percocets, with next prescription written for July 26. Of note, patient was recently seen at [facility], although he was unable to recall why he was there. ED was able to confirm this with [facility] where MRI done showed congenital spinal stenosis exacerbated by degenerative disease and neuroformainal stenosis at L4-L5. Brother reported patient has been drinking heavily, and unable to take care of himself. ER course was notable for: (1)IV Dilaudid 2.5mg, Percocet 5/325 (2)IV NS x3L (3)Lactic acid 2.4, Lipase 424 (4)CT AP: Atelectasis, emphysematous changes, and fibrotic changes in lung bases. Trace left pleural effusion. Small hiatal hernia with mucosal thickening in distal esophagus. Poorly marginated 1.7cm low attenuation lesion near the dome of the right hepatic lobe. General considerations include hemangioma and metastatic disease. Partial fusion of both kidneys (horseshoe kidney variant) which are located in the pelvis. Mild urinary bladder thickening. Dilated penile urethra measuring up to 12mm. Moderate gas and stool in the colon. Recent Travel:denies PAST MEDICAL HISTORY: HCV HTN spinal stenosis PAST SURGICAL HISTORY: Cervical disc disorder s/p C5-C6 fusion Right inguinal hernia repair Social History: Smoking:previous smoker Alcohol:daily Drugs: smokes marijuana daily Family History: Mother - DM Allergies Penicillins Allergy (Severe, Verified 01/09/18 01:16) Swelling patient states swelling of body and face. HOME MEDICATIONS: Home Medications Medication Instructions Recorded Morphine *Sr* [Ms Contin -] 15 mg PO Q8H 07/21/18 Oxycodone HCl/Acetaminophen 1 each PO BID 07/21/18 [Percocet 10-325 mg Tablet] REVIEW OF SYSTEMS CONSTITUTIONAL: Absent: fever, chills, diaphoresis, generalized weakness, malaise, loss of appetite, weight change HEENT: Absent: rhinorrhea, nasal congestion, throat pain, throat swelling, difficulty swallowing, mouth swelling, ear pain, eye pain, visual changes CARDIOVASCULAR: Absent: chest pain, syncope, palpitations, irregular heart rate, lightheadedness , peripheral edema RESPIRATORY: Absent: cough, shortness of breath, dyspnea with exertion, orthopnea, wheezing, stridor, hemoptysis GASTROINTESTINAL: Absent: abdominal pain, abdominal distension, nausea, vomiting, diarrhea, constipation, melena, hematochezia GENITOURINARY: Absent: dysuria, frequency, urgency, hesitancy, hematuria, flank pain, genital pain MUSCULOSKELETAL: Absent: myalgia, arthralgia, joint swelling, back pain, neck pain SKIN: Absent: rash, itching, pallor HEMATOLOGIC/IMMUNOLOGIC: Absent: easy bleeding, easy bruising, lymphadenopathy, frequent infections ENDOCRINE: Absent: unexplained weight gain, unexplained weight loss, heat intolerance, cold intolerance NEUROLOGIC: Absent: headache, focal weakness or paresthesias, dizziness, unsteady gait, seizure, mental status changes, bladder or bowel incontinence PSYCHIATRIC: Absent: anxiety, depression, suicidal or homicidal ideation, hallucinations. PHYSICAL EXAMINATION Vital Signs - 24 hr 07/21/18 07/21/18 07/21/18 15:15 15:32 16:00 Temperature 97.2 F L Pulse Rate 85 Pulse Rate [ 85 80 Apical] Respiratory 20 20 20 Rate Blood Pressure 133/118 H Blood Pressure 80/48 L 105/74 [Right Arm] O2 Sat by Pulse 100 100 99 Oximetry (%) 07/21/18 07/21/18 07/21/18 16:20 16:29 16:40 Temperature 98.8 F Pulse Rate Pulse Rate [ 77 Apical] Respiratory 20 Rate Blood Pressure Blood Pressure 115/70 [Right Arm] O2 Sat by Pulse 98 100 Oximetry (%) 07/21/18 07/21/18 07/21/18 16:55 17:00 17:20 Temperature Pulse Rate Pulse Rate [ 77 74 72 Apical] Respiratory 20 20 20 Rate Blood Pressure Blood Pressure 123/95 122/71 91/64 [Right Arm] O2 Sat by Pulse 98 98 98 Oximetry (%) 07/21/18 07/21/18 07/21/18 17:40 18:00 18:30 Temperature Pulse Rate Pulse Rate [ 74 75 71 Apical] Respiratory 20 20 20 Rate Blood Pressure Blood Pressure 118/80 121/75 109/83 [Right Arm] O2 Sat by Pulse 98 99 99 Oximetry (%) 07/21/18 07/21/18 18:50 19:30 Temperature Pulse Rate Pulse Rate [ 68 77 Apical] Respiratory 20 18 Rate Blood Pressure Blood Pressure 103/63 113/73 [Right Arm] O2 Sat by Pulse 98 98 Oximetry (%) GENERAL: Awake, alert, and fully oriented, in no acute distress. HEAD: Normal with no signs of trauma. EYES: PERRLA, EOMI, sclerae icteric, conjunctiva clear. EARS, NOSE, THROAT: Ears normal, oropharynx clear without exudates. Dry mucous membranes. NECK: Normal range of motion, supple without lymphadenopathy, JVD, or masses. LUNGS: Breath sounds equal, clear to auscultation bilaterally. HEART: Regular rate and rhythm, normal S1 and S2 without murmur, rub or gallop. ABDOMEN: Soft, nontender, not distended, normoactive bowel sounds. MUSCULOSKELETAL: Normal range of motion at all joints. No CVA tenderness. UPPER EXTREMITIES: 2+ pulses, warm, well-perfused. No peripheral edema. LOWER EXTREMITIES: 2+ pulses, warm, well-perfused. No peripheral edema. NEUROLOGICAL: Cranial nerves II-XII intact. Normal speech. B/L UE: 4/5 motor strength, sensation intact. LLE 5/5 motor strength, RLE 4/5 motor strength, sensation intact. Gait not observed. PSYCHIATRIC: Cooperative. Good eye contact. SKIN: Warm, dry, normal turgor, no rashes or lesions. Laboratory Results - last 24 hr 07/21/18 07/21/18 07/21/18 15:50 15:50 15:50 WBC 6.1 RBC 4.15 Hgb 13.6 Hct 39.3 MCV 94.7 MCH 32.8 MCHC 34.6 RDW 13.5 Plt Count 155 MPV 11.3 H D Absolute Neuts (auto) 3.5 Neutrophils % 58.0 Lymphocytes % 28.3 Monocytes % 11.9 H Eosinophils % 0.9 Basophils % 0.9 Nucleated RBC % 0 Platelet Estimate Adequate Platelet Comment Few giant platelets Sodium 138 Potassium 4.4 Chloride 103 Carbon Dioxide 27 Anion Gap 8 BUN 21 H Creatinine 1.0 Creat Clearance w eGFR > 60 Random Glucose 86 Lactic Acid 2.4 H* Calcium 8.1 L Total Bilirubin 0.5 AST 43 H ALT 29 Alkaline Phosphatase 48 B-Natriuretic Peptide 49.6 Total Protein 6.8 Albumin 3.4 Lipase 424 H Urine Color Urine Appearance Urine pH Ur Specific [place] Urine Protein Urine Glucose (UA) Urine Ketones Urine Blood Urine Nitrite Urine Bilirubin Urine Urobilinogen Ur Leukocyte Esterase Influenza A (Rapid) Influenza B (Rapid) Blood Type Antibody Screen 07/21/18 07/21/18 07/21/18 15:50 16:00 16:12 WBC RBC Hgb Hct MCV MCH MCHC RDW Plt Count MPV Absolute Neuts (auto) Neutrophils % Lymphocytes % Monocytes % Eosinophils % Basophils % Nucleated RBC % Platelet Estimate Platelet Comment Sodium Potassium Chloride Carbon Dioxide Anion Gap BUN Creatinine Creat Clearance w eGFR Random Glucose Lactic Acid Calcium Total Bilirubin AST ALT Alkaline Phosphatase B-Natriuretic Peptide Total Protein Albumin Lipase Urine Color Ltyellow Urine Appearance Clear Urine pH 9.0 H D Ur Specific [place] 1.013 Urine Protein Negative Urine Glucose (UA) Negative Urine Ketones Negative Urine Blood Negative Urine Nitrite Negative Urine Bilirubin Negative Urine Urobilinogen 2.0 Ur Leukocyte Esterase Negative Influenza A (Rapid) Negative Influenza B (Rapid) Negative Blood Type O POSITIVE Antibody Screen Negative ASSESSMENT/PLAN: Patient is a 63 year old male with past medical history of HCV, HTN, spinal stenosis, chronic low back pain and cervical disorder, presented with sudden onset diffuse abdominal pain for 1 day. #Abdominal pain -may be EtOH vs opioid withdrawal vs gastroenteritis vs esophagitis -CT AP: Small hiatal hernia with mucosal thickening in distal esophagus. Poorly marginated 1.7cm low attenuation lesion near the dome of the right hepatic lobe. -Will watch out for withdrawal symptoms -Pharmacy provided closed at this time, would need med recs #Unable to ambulate -MRI from [facility]: congenital spinal stenosis exacerbated by degenerative disease and neuroforaminal stenosis @L4-L5 -Physical therapy -Continue home medications -Neuro checks q4h -Consult neurosurgery #Diarrhea -had 3 loose bowel movements, no episodes at the ED -will check Lactoferrin #Hx of HCV infection -Has never followed up as outpatient, never started on any medication -patient says he is willing to follow up now #Hepatic lesion -CT: Poorly marginated 1.7cm low attenuation lesion near the dome of the right hepatic lobe. -In 2017, abdominal US revealed the right hepatic lobe mass -Never followed up once discharged. -RUQ US -CEA level -consider GI consult #EtOH abuse -CIWA protocol -Will give thiamin and folate #Hypertension -Does not recall medications -needs med rec #FEN -IV LR @60cc/hr -Electrolytes wnl, routine bmp monitoring -Sodium controlled diet #Prophylaxis -Lovenox 40mg sq daily #Disposition -full code -admit to med-surg -Physical therapy Visit type - Emergency Visit Emergency Visit: Yes ED Registration Date: 07/21/18 Care time: The patient presented to the Emergency Department on the above date and was hospitalized for further evaluation of their emergent condition. - New Patient This patient is new to me today: Yes Date on this admission: 07/22/18 - Critical Care Critical Care patient: No <Girma Burris - Last Filed: 08/05/18 21:14> Seen and examined; agree with the above aside from what is supplemented by myself in my own documentation. Reviewed all marinelli parts of history and exam with resident team and verified independently.
[2018-07-21] MEDS: LACTATED RINGERS SOLUTION 1,000 ML IV SCH (22:16)
[2018-07-21] MEDS ORDERED: oxyCODONE HCL 5 MG TABLET PO ONE (23:31)
[2018-07-22 02:55] VITALS: BMI 18.7
--- NOTE | 2018-07-22 06:55 | PN ---
Physical Exam: SUBJECTIVE: Patient seen this morning and reports he is in diffuse pain. he reports the pain is worse then his baseline, he has tingling in his hands. Patient had no acute events overnight. OBJECTIVE: Vital Signs Temperature 98.0 F 07/22/18 03:20 Pulse Rate 90 07/22/18 03:20 Respiratory Rate 20 07/22/18 03:20 Blood Pressure 108/70 07/22/18 03:20 O2 Sat by Pulse Oximetry (%) 100 07/22/18 00:29 GENERAL: The patient is awake, alert, and fully oriented, in no acute distress. HEAD: Normal with no signs of trauma. NECK: Trachea midline, full range of motion, supple. LUNGS: Breath sounds equal, clear to auscultation bilaterally, HEART: Regular rate and rhythm, S1, S2 without murmur, rub or gallop. ABDOMEN: Soft, nontender, nondistended, normoactive bowel sounds, EXTREMITIES: 2+ pulses, warm, well-perfused, no edema. 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 SKIN: Warm, dry, normal turgor, no rashes or lesions noted Laboratory Results - last 24 hr Active Medications Enoxaparin Sodium (Lovenox -) 40 mg SQ DAILY [facility] Folic Acid (Folic Acid -) 1 mg PO DAILY [facility] Lactated Ringer's (Lactated Ringers Solution) 1,000 mls @ 60 mls/hr IV ASDIR [facility] Last Admin: 07/21/18 22:16 Dose: 60 mls/hr Oxycodone HCl (Roxicodone -) 5 mg PO ONCE ONE Stop: 07/22/18 07:31 Thiamine HCl (Vitamin B1 -) 100 mg PO DAILY [facility] ASSESSMENT/PLAN: Patient is a 63 y/o male with a history of HCV, HTN, spinal stenosis, chronic low back pain and cervical disorder who is her for pain/ #abd pain - diffuse - f/u ABD CT:trace pleural effusion nd bibsilar atelectasis, horseshoe kidney , rig lobe liver mass suggesting hemangioma, prostaatic hypetrophy, thikcened urinary bladder and prominent penile urethra - hx hepatic lesion - f/u Abd US #MSK pain - diffuse and chronic - pain medications prescribed by Dr. Vance, sees him as an outpatient - consult Neuro surgery - hx : C3-C6 anterior cervical decompression and fusion - MRI spine 2016: spondylosis, ostephytes, disc bulge, spinal cord atrophy with vascular insufficency - PT: max distance 25 feet, suggested to use rolling walker - percocet for pain - gabapentin 600 mg bid #diarrhea likely 2/2 to withdrawl - chronic percocet user - no episodes since yesterday #hx of HCV - f/u abd US - f/u labs #ETOH abuse - continue folic acid and thiamine #HTN - stable off medications #PPX - Lovenox 40 mg sq daily FEN - LR@ 60 Visit type - Emergency Visit Emergency Visit: No - New Patient This patient is new to me today: Yes Date on this admission: 07/22/18 - Critical Care Critical Care patient: No
[2018-07-22 07:36] LABS: BASO % 1.3 % (0-2.0); EOS % 3.6 % (0-4.5); HEMATOCRIT 36.2 % (35.4-49); HEMOGLOBIN 12.4 GM/dL (11.7-16.9); LYMPH % 34.6 % (8-40); MCHC 34.2 g/dl (32.0-35.9); MEAN CELL VOLUME 93.5 fl (80-96); MEAN PLT VOLUME 11.1 fl (7.5-11.1); MONO % 10.4 % (3.8-10.2); NEUT % 50.1 % (42.8-82.8); PLATELET COUNT 152 K/MM3 (134-434); RBC 3.87 M/mm3 (4.00-5.60); RDW 13.4 % (11.9-15.9); WHITE BLOOD COUNT 4.7 K/mm3 (4.0-10.0)
[2018-07-22 08:07] LABS: ALBUMIN 3.1 g/dl (3.4-5.0); ALK PHOS 46 U/L (45-117); ANION GAP 5 MMOL/L (8-16); BILIRUBIN,TOTAL 0.5 mg/dL (0.2-1); BLOOD UREA NITROGEN 9 mg/dL (7-18); CALCIUM 8.1 mg/dL (8.5-10.1); CHLORIDE 106 mmol/L (98-107); CO2 26 mmol/L (21-32); CREATININE 0.7 mg/dL (0.55-1.3); GLUCOSE,RANDOM 81 mg/dL (74-106); MAGNESIUM 1.9 mg/dL (1.8-2.4); PHOSPHOROUS 3.1 mg/dL (2.5-4.9); POTASSIUM 4.1 mmol/L (3.5-5.1); SGOT/AST 39 U/L (15-37); SGPT/ALT 30 U/L (13-61); SODIUM 137 mmol/L (136-145); TOT PROT 6.3 g/dl (6.4-8.2)
[2018-07-22] MEDS ORDERED: oxyCODONE HCL 5 MG TABLET PO ONE (08:15)
[2018-07-22] MEDS: FOLIC ACID 1 MG TABLET (FP) PO SCH (09:30)
[2018-07-22] MEDS: THIAMINE HCL 100 MG TABLET (FP) PO SCH (09:30)
[2018-07-22] MEDS: ENOXAPARIN NA (PORCINE) 40 MG/0.4 ML DISP.SYRIN SQ SCH (09:30)
--- NOTE | 2018-07-22 09:43 | EKG ---
Test Reason : Blood Pressure : / mmHG Vent. Rate : 069 BPM Atrial Rate : 069 BPM P-R Int : 164 ms QRS Dur : 092 ms QT Int : 412 ms P-R-T Axes : 069 083 047 degrees QTc Int : 441 ms NORMAL SINUS RHYTHM NORMAL ECG WHEN COMPARED WITH ECG OF 27-MAY-2018 20:40, T WAVE VARIATION Confirmed by DARWIN CISSE MD ([id number]) on 07/22/2018 9:43:08 AM Referred By: Confirmed By:DARWIN CISSE MD
[2018-07-22] MEDS ORDERED: PT OWN MED DRAWER 7, Y5N ONE (11:08)
--- NOTE | 2018-07-22 11:15 | PN ---
Teaching Attending Note Name of Resident: Lennie Main ATTENDING PHYSICIAN STATEMENT I saw and evaluated the patient. I reviewed the resident's note and discussed the case with the resident. I agree with the resident's findings and plan as documented. SUBJECTIVE:c/o diffuse pain no change from baseline. states he has not had his pain medications since his pain specialist is no longer working in the group. states he overall feels weaker in the R side of his body which has been chronic. denies CP, SOB, fever, chills, N/V/C/D, bowel/bladder incontinence, numbness/tingling in extremities worse than baseline OBJECTIVE: Last Vital Signs Temp Pulse Resp BP Pulse Ox 98.0 F 90 20 108/70 100 07/22/18 03:20 07/22/18 03:20 07/22/18 03:20 07/22/18 03:20 07/22/18 00:29 General NAD CV S1 S2 RRR no murmur/rub/gallop Lungs CTA B/l no wheezing/rales/rhonchi Extremities strength 4/5 B/L UE 4/5 RLE 3/5 LLE ASSESSMENT AND PLAN: 63yo M with PMH continuous ETOH depedence, HCV not treated presented to the ER with abdominal pain and LE pain 1. Abdominal pain- is diffuse and not specific. lipase is slightly above normal but does not have clinical presentation consistent wtih pancreatitis. states its not affected by his eating. has hepatic lesion will need to further evaluate. f/u Liver u/s 2. Congenital spinal stenosis- report from [facility] obtained showing mod spinal stenosis with multilevel degenerative changes with severe stenosis at L4-L5. pt states he is not interested in surgery as he has had cervical spinal surgery in the past and had negative results. will have neurosurg evaluate and discuss options with patient. 3. Lactic acidosis-possible dehydration. resolved 4. Diarrhea- has resolved 5. HCV- was being treated with Harvoni but did not complete treatment and was formerly d/c from Dr Oliveira and was to follow up with Dr Burton which he never did. encouraged to f/u as outpatient 6. Continuous ETOH abuse- CIWA 0. monitor for signs of withdrawal. cont thiamine /folate/MVI 7. DVTppx- lovenox 8. PT eval. pt is not interested in [facility] at this time. willing to do outpatient PT.
[2018-07-22] MEDS: oxyCODONE HCL 5 MG TABLET PO PRN (17:12)
[2018-07-22] MEDS: MULTIVITAMINS (DAILY MVI) TABLET (FP) PO SCH (17:13)
[2018-07-22] MEDS: ACETAMINOPHEN 325 MG TABLET (FP) PO PRN (17:13)
[2018-07-22] MEDS: GABAPENTIN 300 MG CAPSULE (FP) PO SCH (22:12)
[2018-07-22] MEDS: LACTATED RINGERS SOLUTION 1,000 ML IV SCH (22:13)
[2018-07-23] MEDS: ACETAMINOPHEN 325 MG TABLET (FP) PO PRN (05:55)
[2018-07-23] MEDS: oxyCODONE HCL 5 MG TABLET PO PRN ×3 (05:58→21:09)
[2018-07-23 07:49] LABS: HEMATOCRIT 36.8 % (35.4-49); HEMOGLOBIN 12.7 GM/dL (11.7-16.9); MCH 32.2 pg (25.7-33.7); MCHC 34.6 g/dl (32.0-35.9); MEAN CELL VOLUME 93.1 fl (80-96); PLATELET COUNT 162 K/MM3 (134-434); RBC 3.95 M/mm3 (4.00-5.60); RDW 13.4 % (11.9-15.9); WHITE BLOOD COUNT 3.8 K/mm3 (4.0-10.0)
[2018-07-23 08:24] LABS: ALBUMIN 2.9 g/dl (3.4-5.0); ALK PHOS 46 U/L (45-117); ANION GAP 6 MMOL/L (8-16); BILIRUBIN,TOTAL 0.6 mg/dL (0.2-1); BLOOD UREA NITROGEN 8 mg/dL (7-18); CHLORIDE 105 mmol/L (98-107); CO2 27 mmol/L (21-32); CREATININE 0.8 mg/dL (0.55-1.3); GLUCOSE,RANDOM 83 mg/dL (74-106); POTASSIUM 4.3 mmol/L (3.5-5.1); SGOT/AST 35 U/L (15-37); SGPT/ALT 30 U/L (13-61); SODIUM 138 mmol/L (136-145); TOT PROT 6.2 g/dl (6.4-8.2)
[2018-07-23] MEDS: ENOXAPARIN NA (PORCINE) 40 MG/0.4 ML DISP.SYRIN SQ SCH (10:49)
[2018-07-23] MEDS: FOLIC ACID 1 MG TABLET (FP) PO SCH (10:49)
[2018-07-23] MEDS: GABAPENTIN 300 MG CAPSULE (FP) PO SCH ×2 (10:49→21:08)
[2018-07-23] MEDS: MULTIVITAMINS (DAILY MVI) TABLET (FP) PO SCH (10:54)
[2018-07-23] MEDS: THIAMINE HCL 100 MG TABLET (FP) PO SCH (10:54)
--- NOTE | 2018-07-23 12:22 | PN ---
Physical Exam: SUBJECTIVE: Patient seen this morning and reports he has been urinating on himself. he states he still has control and he has been deciding to go in bed. Reports he is still in pain, able to walk with walker with PT. OBJECTIVE: Vital Signs Temperature 98 F 07/22/18 21:00 Pulse Rate 68 07/22/18 21:00 Respiratory Rate 18 07/22/18 21:00 Blood Pressure 112/73 07/22/18 21:00 O2 Sat by Pulse Oximetry (%) 97 07/22/18 21:00 GENERAL: The patient is awake, alert, and fully oriented, in no acute distress. cachectic looking HEAD: Normal with no signs of trauma. NECK: Trachea midline, full range of motion, supple. LUNGS: Breath sounds equal, clear to auscultation bilaterally, HEART: Regular rate and rhythm, S1, S2 without murmur, rub or gallop. ABDOMEN: Soft, nontender, nondistended, normoactive bowel sounds, EXTREMITIES: 2+ pulses, warm, well-perfused, no edema. 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 SKIN: Warm, dry, normal turgor, no rashes or lesions noted CBC, BMP 07/23/18 06:30 07/23/18 06:30 Active Medications Acetaminophen (Tylenol -) 650 mg PO Q12H PRN PRN Reason: PAIN 4-6 Last Admin: 07/23/18 05:55 Dose: 650 mg Enoxaparin Sodium (Lovenox -) 40 mg SQ DAILY [facility] Last Admin: 07/23/18 10:49 Dose: 40 mg Folic Acid (Folic Acid -) 1 mg PO DAILY [facility] Last Admin: 07/23/18 10:49 Dose: 1 mg Gabapentin (Neurontin -) 600 mg PO BID [facility] Last Admin: 07/23/18 10:49 Dose: 600 mg Lactated Ringer's (Lactated Ringers Solution) 1,000 mls @ 60 mls/hr IV ASDIR [facility] Last Admin: 07/22/18 22:13 Dose: Not Given Multivitamins/Minerals/Vitamin C (Tab-A-Vit -) 1 tab PO DAILY [facility] Last Admin: 07/23/18 10:54 Dose: 1 tab Oxycodone HCl (Roxicodone -) 10 mg PO Q12H PRN PRN Reason: PAIN 4-6 Last Admin: 07/23/18 05:58 Dose: 10 mg Thiamine HCl (Vitamin B1 -) 100 mg PO DAILY [facility] Last Admin: 07/23/18 10:54 Dose: 100 mg ASSESSMENT/PLAN: Patient is a 63 y/o male with a history of HCV, HTN, spinal stenosis, chronic low back pain and cervical disorder who is her for pain/ #abd pain - diffuse - f/u ABD CT:trace pleural effusion and bibsilar atelectasis, horseshoe kidney, rig lobe liver mass suggesting hemangioma, prostatic hypetrophy, thikcened urinary bladder and prominent penile urethra - hx hepatic lesion - Abd US: slightly echogenic and heterogenous right hepatic lobe mass measuring 2.3 cm, non specific. prominent pancreatic tail #MSK pain 2/2 to cord compression - Patient evaluated by Dr. Clark; he discussed at length with patient need for surgery and patient more amenable, need to discuss further with him and follow up Cervical MRI - pain medications prescribed by Dr. Vance, sees him as an outpatient - hx : C3-C6 anterior cervical decompression and fusion - MRI spine 2016: spondylosis, ostephytes, disc bulge, spinal cord atrophy with vascular insufficency - PT: max distance 25 feet, suggested to use rolling walker - percocet 5/325 BID prn - gabapentin 600 mg bid #diarrhea likely 2/2 to withdrawl vs questionable malignancy - chronic percocet user - no episodes since yesterday - tumor marker AFP and CEA Ag negative - f/u C diff #hx of HCV - abd US: slightly echogenic and heterogenous right hepatic lobe mass measuring 2.3 cm, non specific. prominent pancreatic tail - f/u labs #ETOH abuse - continue folic acid and thiamine #HTN - stable off medications #PPX - Lovenox 40 mg sq daily FEN - LR@ 60 Dispo: f/u neuro surgery, if patient denies can go home Visit type - Emergency Visit Emergency Visit: No - New Patient This patient is new to me today: No - Critical Care Critical Care patient: No
--- NOTE | 2018-07-23 13:07 | CONSULT ---
Consult - text type - Consultation Consultation Note: NEUROSURGERY CONSULTATION Rodrigue An is a 63 year old male who I initially saw as an inpatient consult over one year ago. He has a history of chronic pain and progressive Cervical spondylotic myelopathy despite 2 Anterior Cervical surgeries performed almost 20 years ago. Unfortunately, he deteriorated after each of these procedures and has severe loss of fine motor skills in his hands with some thenar atrophy. He has profound numbness and tingling and has been dropping things. I reviewed MRI Cervical from 2016 and early 2018 which suggests that he is well fused from C3-C6 from anteriorly, however, he has significant persisting compression at these levels and there is severe junctional stenosis at C23 and C67 with AP spinal canal diameters of 4.9 and 5.0mm respectively. There is hypertrophy of the posterior longitudinal ligament as well as ligamentum flavum with osteophytes and disc bulges which completely efface the ventral and dorsal CSF space and deform the already atrophic Cervical cord which demonstrates significant T2 changes and myelomalacia. The patient understandably is reluctant to consider additional Cervical surgery, however, he clearly remembers our detailed discussions from one year ago where I described the risks, benefits and alternatives to a Posterior revision consisting of Exploration of spinal fusion, C2-7 laminectomies, rastafarian of Lordosis and reconstruction with lateral mass/pars screws from C2-7. I again reviewed this information in detail with the patient and his daughter ( via Facetime video conference). I explained that the risks included, but were not limited to: , coma, paralysis, bleeding, infection, CSF leak possibly requiring spinal drainage or additional fusion, failure to fuse, instrumentation migration/malfunction/malposition and the need for additional surgery. Indeed, the patient has marked Lumbar degenerative disease between L2- L5 and possibly S1 based upon review of CT Abdomen and Pelvis. Naturally, dedicated imaging of the Lumbar spine (at least MRI Lumbar) will be needed before a treatment plan can be developed for this region. At this point, I feel that a more recent Cervical MRI is most important. I offered him the option of seeking another opinion or another surgeon. All questions were answered. Informed consent was obtained. The patient will speak further with his daughter and Dr. Evelyn Vance and will get back to us with his decision, but seems inclined to proceed. I will determine the feasibility of performing surgery during this hospitalization, possibly on Thursday July 25, 2018. I will discuss his medical condition with the Hospitalist team.
[2018-07-23] MEDS: metroNIDAZOLE 250 MG TABLET PO SCH ×2 (15:28→21:09)
--- NOTE | 2018-07-23 20:43 | PN ---
Teaching Attending Note Name of Resident: Lennie Main ATTENDING PHYSICIAN STATEMENT I saw and evaluated the patient. I reviewed the resident's note and discussed the case with the resident. I agree with the resident's findings and plan as documented. SUBJECTIVE: Complains of neck/back pain and diarrhea. No fever/chills. OBJECTIVE: Afebrile, Hemodynamically Stable. Last Vital Signs Temp Pulse Resp BP Pulse Ox 98.0 F 76 18 112/68 97 07/23/18 09:00 07/23/18 09:00 07/23/18 09:00 07/23/18 09:00 07/22/18 21:00 HEENT - Atraumatic, Normocephalic. Heart - S1, S2, RRR Lungs - clear to auscultation Abdomen - Soft, mild generalized tenderness. Bowel Sounds normal. Extremities - no edema, no calf tenderness Neuro - AAO x 3. Mild decrease in power RLE. Laboratory Results - last 24 hr 07/22/18 07/22/18 07/23/18 06:10 06:10 06:30 WBC 3.8 L RBC 3.95 L Hgb 12.7 Hct 36.8 MCV 93.1 MCH 32.2 MCHC 34.6 RDW 13.4 Plt Count 162 MPV 11.0 Sodium Potassium Chloride Carbon Dioxide Anion Gap BUN Creatinine Creat Clearance w eGFR Random Glucose Calcium Total Bilirubin AST ALT Alkaline Phosphatase Total Protein Albumin Tumor Marker AFP 3.1 Carcinoembryonic Ag 2.3 Stool Lactoferrin Cancelled 07/23/18 06:30 WBC RBC Hgb Hct MCV MCH MCHC RDW Plt Count MPV Sodium 138 Potassium 4.3 Chloride 105 Carbon Dioxide 27 Anion Gap 6 L BUN 8 Creatinine 0.8 Creat Clearance w eGFR > 60 Random Glucose 83 Calcium 8.0 L Total Bilirubin 0.6 AST 35 ALT 30 Alkaline Phosphatase 46 Total Protein 6.2 L Albumin 2.9 L Tumor Marker AFP Carcinoembryonic Ag Stool Lactoferrin Current Medications Generic Name Dose Route Start Last Admin Trade Name Freq PRN Reason Stop Dose Admin Acetaminophen 650 mg 07/23/18 14:33 Tylenol - PO BID PRN PAIN 4-6 Enoxaparin Sodium 40 mg 07/22/18 10:00 07/23/18 10:49 Lovenox - SQ 40 mg DAILY [facility] Administration Folic Acid 1 mg 07/22/18 10:00 07/23/18 10:49 Folic Acid - PO 1 mg DAILY [facility] Administration Gabapentin 600 mg 07/22/18 22:00 07/23/18 10:49 Neurontin - PO 600 mg BID [facility] Administration Lactated Ringer's 1,000 mls @ 60 mls/hr 07/21/18 21:30 07/22/18 22:13 Lactated Ringers Solution IV Not Given ASDIR [facility] Metronidazole 500 mg 07/23/18 14:00 07/23/18 15:28 Flagyl - PO 500 mg TID [facility] Administration Multivitamins/Minerals/Vitamin C 1 tab 07/22/18 12:15 07/23/18 10:54 Tab-A-Vit - PO 1 tab DAILY [facility] Administration Oxycodone HCl 10 mg 07/23/18 14:34 07/23/18 18:11 Roxicodone - PO 10 mg BID PRN Administration PAIN LEVEL 7 - 10 Thiamine HCl 100 mg 07/22/18 10:00 07/23/18 10:54 Vitamin B1 - PO 100 mg DAILY [facility] Administration ASSESSMENT AND PLAN: 63 year old male with history of Alcohol Abuse, Hepatitis C (not treated) presented to the ER with abdominal pain, diarrhea, neck/back pain, and RLE pain. 1. Congenital Spinal Stenosis s/p C-Spine fusion, Severe Stenosis L4/5 MRI C-Spine: post fusion C3-7, cervical cord atrophy C3/4, C6/7 Evaluated by Neurosurgery - discussions ongoing regarding possible spinal surgery 2. Diarrhea with mild abdominal discomfort - Cdiff Ag positive. Started on Flagyl. Afebrile, Hemodynamically Stable. 3. R Lobe Hepatic 2.3cm Lesion on CT and US, possible Hemangioma. For Hemangioma -protocol MRI 4. Hepatitis C Infection - previously on Harvoni but did not complete treatment - for follow up with Dr. Gomes as out-patient. 5. Chronic Alcohol Abuse - no evidence of withdrawal. For MVI, Thiamine, Folate. DVT Px - on Lovenox
[2018-07-23] MEDS ORDERED: oxyCODONE HCL 5 MG TABLET PO SCH (22:00)
[2018-07-24 05:18] LABS: HEP.C VIRUS AB >11.0 s/co ratio (0.0-0.9)
[2018-07-24] MEDS: oxyCODONE HCL 5 MG TABLET PO PRN ×2 (06:04→18:08)
[2018-07-24] MEDS: LACTATED RINGERS SOLUTION 1,000 ML IV SCH ×2 (06:05→21:10)
[2018-07-24] MEDS: metroNIDAZOLE 250 MG TABLET PO SCH ×3 (06:05→21:09)
[2018-07-24] MEDS: ACETAMINOPHEN 325 MG TABLET (FP) PO PRN ×2 (06:24→18:06)
--- NOTE | 2018-07-24 08:44 | PN ---
Physical Exam: SUBJECTIVE: Patient examined this morning and without new complaints. Dr. Clark to come and speak with patient this afternoon about the possibility of surgery on . OBJECTIVE: Vital Signs Temperature 98.2 F 07/24/18 06:48 Pulse Rate 63 07/24/18 06:48 Respiratory Rate 18 07/24/18 06:48 Blood Pressure 112/72 07/24/18 06:48 O2 Sat by Pulse Oximetry (%) 95 07/23/18 21:00 GENERAL: The patient is awake, alert, and fully oriented, in no acute distress. cachectic looking HEAD: Normal with no signs of trauma. NECK: Trachea midline, full range of motion, supple. LUNGS: Breath sounds equal, clear to auscultation bilaterally, HEART: Regular rate and rhythm, S1, S2 without murmur, rub or gallop. ABDOMEN: Soft, nontender, nondistended, normoactive bowel sounds, EXTREMITIES: 2+ pulses, warm, well-perfused, no edema. 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 SKIN: Warm, dry, normal turgor, no rashes or lesions noted Laboratory Results - last 24 hr 07/23/18 06:30 Hepatitis A IgM Ab Negative Hep Bs Antigen Negative Hep B Core IgM Ab Indeterminate H Hepatitis C Antibody >11.0 H Active Medications Acetaminophen (Tylenol -) 650 mg PO BID PRN PRN Reason: PAIN 4-6 Last Admin: 07/24/18 06:24 Dose: 650 mg Enoxaparin Sodium (Lovenox -) 40 mg SQ DAILY [facility] Last Admin: 07/23/18 10:49 Dose: 40 mg Folic Acid (Folic Acid -) 1 mg PO DAILY [facility] Last Admin: 07/23/18 10:49 Dose: 1 mg Gabapentin (Neurontin -) 600 mg PO BID [facility] Last Admin: 07/23/18 21:08 Dose: 600 mg Lactated Ringer's (Lactated Ringers Solution) 1,000 mls @ 60 mls/hr IV ASDIR [facility] Last Admin: 07/24/18 06:05 Dose: 60 mls/hr Metronidazole (Flagyl -) 500 mg PO TID [facility] Last Admin: 07/24/18 06:05 Dose: 500 mg Multivitamins/Minerals/Vitamin C (Tab-A-Vit -) 1 tab PO DAILY [facility] Last Admin: 07/23/18 10:54 Dose: 1 tab Oxycodone HCl (Roxicodone -) 10 mg PO BID PRN PRN Reason: PAIN LEVEL 7 - 10 Last Admin: 07/24/18 06:04 Dose: 10 mg Thiamine HCl (Vitamin B1 -) 100 mg PO DAILY [facility] Last Admin: 07/23/18 10:54 Dose: 100 mg ASSESSMENT/PLAN: Patient is a 63 y/o male with a history of HCV, HTN, spinal stenosis, chronic low back pain and cervical disorder who is her for pain/ #abd pain with diarrhea, positive c diff - f/u ABD CT:trace pleural effusion and bibsilar atelectasis, horseshoe kidney, rig lobe liver mass suggesting hemangioma, prostatic hypetrophy, thikcened urinary bladder and prominent penile urethra - hx hepatic lesion - Abd US: slightly echogenic and heterogenous right hepatic lobe mass measuring 2.3 cm, non specific. prominent pancreatic tail - tumor marker AFP and CEA Ag negative - C diff antigen positive, Flagyl 500 TID day 2 #MSK pain 2/2 to cord compression - Patient evaluated by Dr. Clark; will discuss this afternoon for possible surgery tomorrow - pain medications prescribed by Dr. Vance, sees him as an outpatient - hx : C3-C6 anterior cervical decompression and fusion - PT: max distance 25 feet, suggested to use rolling walker - percocet 5/325 BID prn - gabapentin 600 mg bid #hx of HCV - abd US: slightly echogenic and heterogenous right hepatic lobe mass measuring 2.3 cm, non specific. prominent pancreatic tail - positive Hep C #ETOH abuse - continue folic acid and thiamine #HTN - stable off medications #PPX - Lovenox 40 mg sq daily FEN - LR@ 60 Dispo: f/u neuro surgery Visit type - Emergency Visit Emergency Visit: No - New Patient This patient is new to me today: No - Critical Care Critical Care patient: No
[2018-07-24] MEDS: GABAPENTIN 300 MG CAPSULE (FP) PO SCH ×2 (10:08→21:09)
[2018-07-24] MEDS: ENOXAPARIN NA (PORCINE) 40 MG/0.4 ML DISP.SYRIN SQ SCH (10:08)
[2018-07-24] MEDS: THIAMINE HCL 100 MG TABLET (FP) PO SCH (10:09)
[2018-07-24] MEDS: MULTIVITAMINS (DAILY MVI) TABLET (FP) PO SCH (10:09)
[2018-07-24] MEDS: FOLIC ACID 1 MG TABLET (FP) PO SCH (10:09)
--- NOTE | 2018-07-24 15:47 | SPA.PREOP ---
- PRE-OP NOTE Dx: C2-7 Stenosis Planned Procedure: C2-7 fusion Surgeon: Mejia Clark MD Last Vital Signs Temp Pulse Resp BP Pulse Ox 98.1 F 64 18 98/65 98 07/24/18 15:02 07/24/18 15:02 07/24/18 15:02 07/24/18 15:02 07/24/18 09:00 Lab Results WBC 3.8 K/mm3 (4.0-10.0) L 07/23/18 06:30 RBC 3.95 M/mm3 (4.00-5.60) L 07/23/18 06:30 Hgb 12.7 GM/dL (11.7-16.9) 07/23/18 06:30 Hct 36.8 % (35.4-49) 07/23/18 06:30 MCV 93.1 fl (80-96) 07/23/18 06:30 MCHC 34.6 g/dl (32.0-35.9) 07/23/18 06:30 RDW 13.4 % (11.9-15.9) 07/23/18 06:30 Plt Count 162 K/MM3 (134-434) 07/23/18 06:30 Sodium 138 mmol/L (136-145) 07/23/18 06:30 Potassium 4.3 mmol/L (3.5-5.1) 07/23/18 06:30 Chloride 105 mmol/L (98-107) 07/23/18 06:30 Carbon Dioxide 27 mmol/L (21-32) 07/23/18 06:30 Anion Gap 6 MMOL/L (8-16) L 07/23/18 06:30 BUN 8 mg/dL (7-18) 07/23/18 06:30 Creatinine 0.8 mg/dL (0.55-1.3) 07/23/18 06:30 Random Glucose 83 mg/dL (74-106) 07/23/18 06:30 Calcium 8.0 mg/dL (8.5-10.1) L 07/23/18 06:30 Blood Type O POSITIVE 07/21/18 15:50 Antibody Screen Negative 07/21/18 15:50 - ASSESSMENT/PLAN 1. Make NPO after midnight except po meds 2. GI/DVT PPX 3. Medical optimization / clearance 4. Consent to be obtained by surgeon after risks, benefits and alternatives discussed with patient and or Health Care Proxy.
--- NOTE | 2018-07-24 17:04 | PN ---
Teaching Attending Note Name of Resident: Lennie Main ATTENDING PHYSICIAN STATEMENT I saw and evaluated the patient. I reviewed the resident's note and discussed the case with the resident. I agree with the resident's findings and plan as documented. SUBJECTIVE: Complains of ongoing neck/back pain. Some improvement in diarrhea. No fever/chills. OBJECTIVE: Afebrile, Hemodynamically Stable. Vital Signs - 24 hr 07/23/18 07/23/18 07/24/18 17:25 21:00 06:48 Temperature 98.1 F 97.9 F 98.2 F Pulse Rate 67 63 63 Respiratory 18 18 18 Rate Blood Pressure 106/62 119/65 112/72 O2 Sat by Pulse 95 Oximetry (%) HEENT - Atraumatic, Normocephalic. Heart - S1, S2, RRR Lungs - clear to auscultation Abdomen - Soft, mild generalized tenderness. Bowel Sounds normal. Extremities - no edema, no calf tenderness Neuro - AAO x 3. Mild decrease in power RLE. Laboratory Results - last 24 hr 07/23/18 06:30 Hepatitis A IgM Ab Negative Hep Bs Antigen Negative Hep B Core IgM Ab Indeterminate H Hepatitis C Antibody >11.0 H Current Medications Generic Name Dose Route Start Last Admin Trade Name Freq PRN Reason Stop Dose Admin Acetaminophen 650 mg 07/23/18 14:33 07/24/18 06:24 Tylenol - PO 650 mg BID PRN Administration PAIN 4-6 Chlorhexidine Gluconate 1 applic 07/24/18 22:00 Hibiclens For Decolonization - TP HS [facility] Enoxaparin Sodium 40 mg 07/22/18 10:00 07/24/18 10:08 Lovenox - SQ 40 mg DAILY [facility] Administration Folic Acid 1 mg 07/22/18 10:00 07/24/18 10:09 Folic Acid - PO 1 mg DAILY [facility] Administration Gabapentin 600 mg 07/22/18 22:00 07/24/18 10:08 Neurontin - PO 600 mg BID [facility] Administration Lactated Ringer's 1,000 mls @ 60 mls/hr 07/21/18 21:30 07/24/18 06:05 Lactated Ringers Solution IV 60 mls/hr ASDIR [facility] Administration Metronidazole 500 mg 07/23/18 14:00 07/24/18 15:12 Flagyl - PO 500 mg TID [facility] Administration Multivitamins/Minerals/Vitamin C 1 tab 02/25/19 12:15 07/24/18 10:09 Tab-A-Vit - PO 1 tab DAILY [facility] Administration Oxycodone HCl 10 mg 07/23/18 14:34 07/24/18 06:04 Roxicodone - PO 10 mg BID PRN Administration PAIN LEVEL 7 - 10 Thiamine HCl 100 mg 07/22/18 10:00 07/24/18 10:09 Vitamin B1 - PO 100 mg DAILY [facility] Administration ASSESSMENT AND PLAN: 63 year old male with history of Alcohol Abuse, Hepatitis C (not treated) presented to the ER with abdominal pain, diarrhea, neck/back pain, and RLE pain. 1. Congenital Spinal Stenosis s/p C-Spine fusion, Severe Stenosis L4/5 MRI C-Spine: post fusion C3-7, cervical cord atrophy C3/4, C6/7 Evaluated by Neurosurgery - discussions ongoing regarding possible spinal surgery - possibly on 07/25/18 2. Diarrhea with mild abdominal discomfort - Cdiff Ag positive. Continue Flagyl. Afebrile, Hemodynamically Stable. 3. R Lobe Hepatic 2.[address] and US, possible Hemangioma. For Hemangioma-protocol MRI 4. Hepatitis C Infection - previously on Harvoni but did not complete treatment - for follow up with Dr. Gomes as out-patient. 5. Chronic Alcohol Abuse - no evidence of withdrawal. Continue MVI, Thiamine, Folate. DVT Px - SCDs - will hold Lovenox pending possible Spinal Surgery.
--- NOTE | 2018-07-24 17:27 | PN ---
Progress Note (short form) - Note Progress Note: Patient requests that we proceed with surgery as described. All questions answered. NPO p MN for surgery in AM.
[2018-07-24] MEDS ORDERED: CHLORHEXIDINE GLUCONATE 4% CLEANSER FOR DECOLONIZATION TP SCH (22:00)
[2018-07-25] MEDS: metroNIDAZOLE 250 MG TABLET PO SCH ×2 (05:21→21:19)
--- NOTE | 2018-07-25 08:07 | PN ---
Physical Exam: SUBJECTIVE: Patient seen this morning and without complaint. Patient for surgery this morning. OBJECTIVE: Vital Signs Temperature 98 F 07/25/18 07:12 Pulse Rate 60 07/25/18 07:12 Respiratory Rate 20 07/25/18 07:12 Blood Pressure 106/68 07/25/18 07:12 O2 Sat by Pulse Oximetry (%) 98 07/24/18 21:00 GENERAL: The patient is awake, alert, and fully oriented, in no acute distress. cachectic looking HEAD: Normal with no signs of trauma. NECK: Trachea midline, full range of motion, supple. LUNGS: Breath sounds equal, clear to auscultation bilaterally, HEART: Regular rate and rhythm, S1, S2 without murmur, rub or gallop. ABDOMEN: Soft, nontender, nondistended, normoactive bowel sounds, EXTREMITIES: 2+ pulses, warm, well-perfused, no edema. 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 SKIN: Warm, dry, normal turgor, no rashes or lesions noted Laboratory Results - last 24 hr 07/23/18 06:30 Hepatitis A IgM Ab Negative Hep Bs Antigen Negative Hep B Core IgM Ab Indeterminate H Hepatitis C Antibody >11.0 H Active Medications Acetaminophen (Tylenol -) 650 mg PO BID PRN PRN Reason: PAIN 4-6 Last Admin: 07/24/18 18:06 Dose: 650 mg Chlorhexidine Gluconate (Hibiclens For Decolonization -) 1 applic TP HS [facility] Last Admin: 07/24/18 21:10 Dose: 1 applic Folic Acid (Folic Acid -) 1 mg PO DAILY [facility] Last Admin: 07/24/18 10:09 Dose: 1 mg Gabapentin (Neurontin -) 600 mg PO BID [facility] Last Admin: 07/24/18 21:09 Dose: 600 mg Lactated Ringer's (Lactated Ringers Solution) 1,000 mls @ 60 mls/hr IV ASDIR [facility] Last Admin: 07/24/18 21:10 Dose: Not Given Metronidazole (Flagyl -) 500 mg PO TID [facility] Last Admin: 07/25/18 05:21 Dose: Not Given Multivitamins/Minerals/Vitamin C (Tab-A-Vit -) 1 tab PO DAILY [facility] Last Admin: 07/24/18 10:09 Dose: 1 tab Oxycodone HCl (Roxicodone -) 10 mg PO BID PRN PRN Reason: PAIN LEVEL 7 - 10 Last Admin: 07/24/18 18:08 Dose: 10 mg Thiamine HCl (Vitamin B1 -) 100 mg PO DAILY [facility] Last Admin: 07/24/18 10:09 Dose: 100 mg ASSESSMENT/PLAN: Patient is a 63 y/o male with a history of HCV, HTN, spinal stenosis, chronic low back pain and cervical disorder who is her for pain. #MSK pain 2/2 to cord compression - Patient evaluated by Dr. Clark; for surgery this morning - pain medications prescribed by Dr. Vance, sees him as an outpatient - PT: max distance 25 feet, suggested to use rolling walker - percocet 5/325 BID prn - gabapentin 600 mg bid #abd pain with diarrhea, positive c diff - f/u ABD CT:trace pleural effusion and bibsilar atelectasis, horseshoe kidney, rig lobe liver mass suggesting hemangioma, prostatic hypetrophy, thikcened urinary bladder and prominent penile urethra - hx hepatic lesion - Abd US: slightly echogenic and heterogenous right hepatic lobe mass measuring 2.3 cm, non specific. prominent pancreatic tail - tumor marker AFP and CEA Ag negative - C diff antigen positive, Flagyl 500 TID day 4 #hx of HCV - abd US: slightly echogenic and heterogenous right hepatic lobe mass measuring 2.3 cm, non specific. prominent pancreatic tail - positive Hep C - f/u ABD MRI #ETOH abuse - continue folic acid and thiamine #HTN - stable off medications #PPX - Lovenox 40 mg sq daily FEN - LR@ 60 Dispo: f/u neuro surgery Visit type - Emergency Visit Emergency Visit: No - New Patient This patient is new to me today: No - Critical Care Critical Care patient: No
[2018-07-25 08:14] LABS: HEMATOCRIT 36.5 % (35.4-49); HEMOGLOBIN 12.3 GM/dL (11.7-16.9); MCH 31.3 pg (25.7-33.7); MCHC 33.6 g/dl (32.0-35.9); MEAN CELL VOLUME 93.3 fl (80-96); MEAN PLT VOLUME 10.4 fl (7.5-11.1); PLATELET COUNT 172 K/MM3 (134-434); RBC 3.91 M/mm3 (4.00-5.60); RDW 13.2 % (11.9-15.9)
[2018-07-25 08:21] LABS: INR 1.04 (0.83-1.09); PROTHROMBIN TIME (PATIENT) 12.3 SEC (9.7-13.0)
[2018-07-25 08:39] LABS: ALBUMIN 3.2 g/dl (3.4-5.0); ALK PHOS 46 U/L (45-117); ANION GAP 4 MMOL/L (8-16); BILIRUBIN,TOTAL 0.4 mg/dL (0.2-1); BLOOD UREA NITROGEN 9 mg/dL (7-18); CALCIUM 8.1 mg/dL (8.5-10.1); CHLORIDE 105 mmol/L (98-107); CO2 28 mmol/L (21-32); CREATININE 0.8 mg/dL (0.55-1.3); GLUCOSE,RANDOM 91 mg/dL (74-106); POTASSIUM 4.2 mmol/L (3.5-5.1); SGOT/AST 42 U/L (15-37); SGPT/ALT 32 U/L (13-61); SODIUM 138 mmol/L (136-145); TOT PROT 6.2 g/dl (6.4-8.2)
[2018-07-25] MEDS ORDERED: BUPIVACAINE HCL/PF 0.25% (2.5MG/ML) 10 ML VIAL ONE (09:15)
[2018-07-25] MEDS ORDERED: LIDOCAINE 1%-EPI 1:100,000 30 ML MDV IJ ONE (09:15)
[2018-07-25] MEDS ORDERED: BUPIVACAINE LIPOSOME/PF (EXPAREL) 266 MG/20 ML VIAL ONE (09:15)
[2018-07-25] MEDS ORDERED: GENTAMICIN SO4 80 MG/2 ML VIAL ONE (09:15)
[2018-07-25] MEDS ORDERED: THROMBIN (BOVINE) 20,000 UNIT VIAL TP ONE (09:16)
[2018-07-25] MEDS ORDERED: BACITRACIN 15 GM TUBE TOPICAL OINTMENT ONE (09:19)
[2018-07-25] MEDS: ACETAMINOPHEN 325 MG TABLET (FP) PO PRN (10:25)
[2018-07-25] MEDS: oxyCODONE HCL 5 MG TABLET PO PRN (10:26)
[2018-07-25] MEDS: GABAPENTIN 300 MG CAPSULE (FP) PO SCH ×2 (10:43→21:19)
[2018-07-25] MEDS: FOLIC ACID 1 MG TABLET (FP) PO SCH (10:43)
[2018-07-25] MEDS: MULTIVITAMINS (DAILY MVI) TABLET (FP) PO SCH (10:44)
[2018-07-25] MEDS: THIAMINE HCL 100 MG TABLET (FP) PO SCH (10:44)
[2018-07-25] MEDS ORDERED: fentaNYL CITRATE 250 MCG/5 ML VIAL ONE ×2 (12:26→13:44)
[2018-07-25] MEDS ORDERED: LIDOCAINE HCL/PF 2% SDV 5ML VIAL ONE ×2 (12:26→12:40)
[2018-07-25] MEDS ORDERED: VANCOMYCIN 1,000 MG VIAL (RESTRICTED TO ID ONLY) ONE (12:26)
[2018-07-25] MEDS ORDERED: ROCURONIUM BROMIDE 50 MG/5 ML VIAL ONE ×2 (12:28→13:14)
[2018-07-25] MEDS ORDERED: PROPOFOL 20 ML ONE ×3 (12:28→13:17)
[2018-07-25] MEDS ORDERED: MIDAZOLAM HCL 2 MG/2 ML SINGLE DOSE VIAL ONE (12:28)
[2018-07-25] MEDS ORDERED: VANCOMYCIN 1,000 MG VIAL (RESTRICTED TO ID ONLY) IVPB ONE (12:50)
[2018-07-25] MEDS ORDERED: LIDOCAINE 1%/EPI 1:100000 (50 ML MULTI DOSE VIAL) NR ONE (13:09)
[2018-07-25] MEDS ORDERED: ceFAZolin SODIUM 1 GM VIAL ONE (13:09)
[2018-07-25] MEDS ORDERED: ePHEDrine SULFATE 50 MG/1 ML AMPULE ONE (13:09)
[2018-07-25] MEDS ORDERED: ceFAZolin SODIUM 1 GM VIAL IVPB ONE (13:19)
[2018-07-25] MEDS ORDERED: METOPROLOL TARTRATE 5 MG/5 ML VIAL ONE (13:22)
[2018-07-25] MEDS ORDERED: GLYCOPYRROLATE 0.2 MG/1 ML VIAL ONE (14:10)
[2018-07-25] MEDS ORDERED: NEOSTIGMINE METHYLSULFATE 0.5 MG/1 ML - 10 ML MDV ONE ×3 (14:10)
[2018-07-25] MEDS ORDERED: BUPIVACAINE HCL/PF 0.25% (2.5MG/ML) 10 ML VIAL IJ ONE (14:13)
[2018-07-25] MEDS ORDERED: BUPIVACAINE HCL/PF 0.5% (5MG/ML) 10 ML VIAL ONE (14:22)
--- NOTE | 2018-07-25 14:25 | PN ---
Teaching Attending Note Name of Resident: Lennie Main ATTENDING PHYSICIAN STATEMENT I saw and evaluated the patient. I reviewed the resident's note and discussed the case with the resident. I agree with the resident's findings and plan as documented. SUBJECTIVE: Complains of ongoing neck/back pain with tingling in R hand and leg. Some improvement in diarrhea - last bowel movement yesterday - soft. No fever/chills. OBJECTIVE: Afebrile, Hemodynamically Stable. Last Vital Signs Temp Pulse Resp BP Pulse Ox 97.9 F 57 L 18 118/74 98 07/25/18 08:30 07/25/18 08:30 07/25/18 08:30 07/25/18 08:30 07/24/18 21:00 HEENT - Atraumatic, Normocephalic. Heart - S1, S2, RRR Lungs - clear to auscultation Abdomen - Soft, non-tender. Bowel Sounds normal. Extremities - no edema, no calf tenderness Neuro - AAO x 3. Mild decrease in power RLE. Laboratory Results - last 24 hr 07/25/18 07/25/18 07/25/18 07:30 07:30 07:30 WBC 3.0 L RBC 3.91 L Hgb 12.3 Hct 36.5 MCV 93.3 MCH 31.3 MCHC 33.6 RDW 13.2 Plt Count 172 MPV 10.4 PT with INR 12.30 INR 1.04 Sodium 138 Potassium 4.2 Chloride 105 Carbon Dioxide 28 Anion Gap 4 L BUN 9 Creatinine 0.8 Creat Clearance w eGFR > 60 Random Glucose 91 Calcium 8.1 L Total Bilirubin 0.4 AST 42 H ALT 32 Alkaline Phosphatase 46 Total Protein 6.2 L Albumin 3.2 L Current Medications Generic Name Dose Route Start Last Admin Trade Name Freq PRN Reason Stop Dose Admin Acetaminophen 650 mg 07/23/18 14:33 07/25/18 10:25 Tylenol - PO 650 mg BID PRN Administration PAIN 4-6 Chlorhexidine Gluconate 1 applic 07/24/18 22:00 07/24/18 21:10 Hibiclens For Decolonization - TP 1 applic HS [facility] Administration Folic Acid 1 mg 07/22/18 10:00 07/25/18 10:43 Folic Acid - PO Not Given DAILY [facility] Gabapentin 600 mg 07/22/18 22:00 02/28/19 10:43 Neurontin - PO Not Given BID [facility] Lactated Ringer's 1,000 mls @ 60 mls/hr 07/21/18 21:30 07/24/18 21:10 Lactated Ringers Solution IV Not Given ASDIR [facility] Metronidazole 500 mg 07/23/18 14:00 07/25/18 05:21 Flagyl - PO Not Given TID [facility] Multivitamins/Minerals/Vitamin C 1 tab 07/22/18 12:15 07/25/18 10:44 Tab-A-Vit - PO Not Given DAILY [facility] Oxycodone HCl 10 mg 07/23/18 14:34 07/25/18 10:26 Roxicodone - PO 10 mg BID PRN Administration PAIN LEVEL 7 - 10 Thiamine HCl 100 mg 07/22/18 10:00 07/25/18 10:44 Vitamin B1 - PO Not Given DAILY [facility] ASSESSMENT AND PLAN: 63 year old male with history of Alcohol Abuse, Hepatitis C (not treated) presented to the ER with abdominal pain, diarrhea, neck/back pain, and RLE pain. 1. Congenital Spinal Stenosis s/p C-Spine fusion, Severe Stenosis L4/5 MRI C-Spine: post fusion C3-7, cervical cord atrophy C3/4, C6/7 Evaluated by Neurosurgery - for C - spine surgery today. 2. Clostridium difficile Diarrhea - improving - no further abdominal discomfort/ tenderness. Continue Flagyl. Afebrile, Hemodynamically Stable. 3. R Lobe Hepatic 2.[address] and US, possible Hemangioma. Hemangioma- protocol MRI pending. 4. Hepatitis C Infection - previously on Harvoni but did not complete treatment - for follow up with Dr. Gomes as out-patient. 5. Chronic Alcohol Abuse - no evidence of withdrawal. Continue MVI, Thiamine, Folate. DVT Px - SCDs - will hold Lovenox pending Spinal Surgery.
[2018-07-25] MEDS ORDERED: BUPIVACAINE HCL/PF (5 MG/ML) 30 ML VIAL IJ ONE (14:26)
[2018-07-25] MEDS ORDERED: ONDANSETRON 4 MG/2 ML VIAL IVPUSH PRN ×2 (15:12→16:07)
[2018-07-25] MEDS ORDERED: HYDROmorphone *PCA* 10MG/50ML DISP.SYRIN PCA SCH ×2 (15:15→16:07)
[2018-07-25] MEDS ORDERED: diphenhydrAMINE HCL 25 MG CAPSULE (FP) PO PRN (16:02)
--- NOTE | 2018-07-25 16:28 | OP ---
Operative Note - Note: Operative Date: 07/25/18 Pre-Operative Diagnosis: Spinal Stenosis. Splondylolithesis Operation: Exploration of spinal fusion, C2-C7 Laminectomies, orthodoxy of lordosis and reconstruction with lateral mass/pars screws C2-C7 Post-Operative Diagnosis: Same as Pre-op Surgeon: Mejia Clark Drywall Taper: Donna Kelly Anesthesiologist/DRIER: Zahraa Burgos Anesthesia: General, Local Estimated Blood Loss (mls): 100 Drains & Tubes with Location: QUENTIN Right cervical paravetebral Drains, Volume Out (mls): 200 (connor) Fluid Volume Replaced (mls): 1,200 Operative Report Dictated: Yes
[2018-07-25] MEDS: LACTATED RINGERS SOLUTION 1,000 ML IV SCH (17:50)
[2018-07-25] MEDS: CEFAZOLIN 1 GM/D5W 1 GM/50 ML BAG IVPB SCH (20:43)
[2018-07-25] MEDS: HEPARIN NA (PORCINE) 5,000 UNITS/ML 1ML VIAL SQ SCH (21:18)
[2018-07-25] MEDS: DOCUSATE SODIUM 100 MG CAPSULE (FP) PO SCH (21:19)
[2018-07-25] MEDS ORDERED: CHLORHEXIDINE GLUCONATE 4% CLEANSER FOR DECOLONIZATION TP SCH (22:00)
[2018-07-26] MEDS: CEFAZOLIN 1 GM/D5W 1 GM/50 ML BAG IVPB SCH ×3 (05:04→20:00)
[2018-07-26] MEDS: DOCUSATE SODIUM 100 MG CAPSULE (FP) PO SCH ×3 (05:54→21:41)
[2018-07-26] MEDS: metroNIDAZOLE 250 MG TABLET PO SCH ×3 (05:55→21:41)
[2018-07-26] MEDS: HEPARIN NA (PORCINE) 5,000 UNITS/ML 1ML VIAL SQ SCH ×2 (05:55→14:09)
[2018-07-26 07:36] LABS: HEMATOCRIT 38.9 % (35.4-49); HEMOGLOBIN 13.1 GM/dL (11.7-16.9); MCH 31.6 pg (25.7-33.7); MCHC 33.8 g/dl (32.0-35.9); MEAN CELL VOLUME 93.4 fl (80-96); MEAN PLT VOLUME 10.8 fl (7.5-11.1); PLATELET COUNT 180 K/MM3 (134-434); RBC 4.16 M/mm3 (4.00-5.60); RDW 13.3 % (11.9-15.9); WHITE BLOOD COUNT 7.7 K/mm3 (4.0-10.0)
[2018-07-26 08:47] LABS: ALBUMIN 3.4 g/dl (3.4-5.0); ALK PHOS 51 U/L (45-117); ANION GAP 9 MMOL/L (8-16); BILIRUBIN,TOTAL 0.5 mg/dL (0.2-1); BLOOD UREA NITROGEN 8 mg/dL (7-18); CALCIUM 8.6 mg/dL (8.5-10.1); CHLORIDE 99 mmol/L (98-107); CO2 27 mmol/L (21-32); CREATININE 0.7 mg/dL (0.55-1.3); GLUCOSE,RANDOM 110 mg/dL (74-106); POTASSIUM 3.8 mmol/L (3.5-5.1); SGOT/AST 40 U/L (15-37); SGPT/ALT 32 U/L (13-61); SODIUM 135 mmol/L (136-145); TOT PROT 6.7 g/dl (6.4-8.2)
--- NOTE | 2018-07-26 08:59 | PN ---
Progress Note (short form) - Note Progress Note: Post op day#1.S/p C2-C7 Laminectomy with fusion under GA uneventful.Patient on Dilaudid PRODUCTION COOK and c/o pain score of 8/10.He is a chronic pain patient so will increase the contact representative dose from 0.2 to 0.4.Will f/u tomorrow.
[2018-07-26] MEDS: GABAPENTIN 300 MG CAPSULE (FP) PO SCH ×2 (09:28→21:41)
[2018-07-26] MEDS: MULTIVITAMINS (DAILY MVI) TABLET (FP) PO SCH (09:28)
[2018-07-26] MEDS: FERROUS SO4 325 MG TABLET (FP) PO SCH (09:28)
[2018-07-26] MEDS: FOLIC ACID 1 MG TABLET (FP) PO SCH (09:28)
[2018-07-26] MEDS: THIAMINE HCL 100 MG TABLET (FP) PO SCH (09:29)
--- NOTE | 2018-07-26 09:57 | PN ---
Progress Note (short form) - Note Progress Note: surgery POD #1 C2-C7 laminectomies, decompression and fusion. Patient seen and examined at bedside c/o pain overnight that kept him awake even though he is using his FRONT END ALIGNMENT SPECIALIST. He he is still having b/l UE pain and weakness L>R unchanged from his pre-op symptoms, and some incisional pain. He is tolerating his diet and denies any CP, SOB, N/V, fever or chills. He is anxious to get OOB and walk with PT today. Vital Signs Temp 98.1 F 07/26/18 06:00 Pulse 85 07/26/18 06:00 Resp 18 07/26/18 06:00 BP 132/93 07/26/18 06:00 Pulse Ox 100 07/25/18 21:00 Intake & Output 07/25/18 07/25/18 07/26/18 11:59 23:59 11:59 Intake Total 420 1740 Output Total 100 1290 3070 Balance 320 450 -3070 Intake: IV 420 1740 Lactated Ringers Solution 420 240 1,000 ml @ 60 mls/hr IV ASDIR [facility] Rx#:[id number] Oral 0 Output: Drainage 290 120 Right upper back 100 120 100 Urine 1000 2950 Connor 2950 Estimated Blood Loss 100 Other: Voiding Method Urinal Urinal # Unmeasured Voids Void 1 CBC, BMP 07/26/18 06:30 07/26/18 06:30 PE: A&Ox3, NAD Unlabored resp on 2LNC C-spine, Dressing c/d/i with surrounding tissue intact and no erythema, edema or evidence of collection of d/c, UQENTIN drain at right paravetebral c-spine in good position and draining bloody d/c B/L UE neonatal nurse practitioner test 3/5 (unchanged from pre-op) Patient unable to participate strength testing of UE 2/2 pain. Sensation to light touch grossly intact throughout. B/L LE compartments soft supple and non-tender to palpation, 4/5 b/l on dorsi/ plantar flexion (baseline). + 2 DP pulses. Problem List - Problems (1) Status post cervical spinal fusion Assessment/Plan: POD #1 C2-C7 laminectomies, decompression and fusion doing well, will need aggressive PT. 1) D/c connor as ordered 2) OOB to chair for meals and OOB with PT/walker 3) DVT prophylaxis with early ambulation, scds and sq heparin 4) Pain control via FRONT END ALIGNMENT SPECIALIST-increase by anesthesia this morning 5) Encourage daily IS 6) C-Collar 23hr/day, no pillow behind head Evaluation and plan discussed with Dr Clark Code(s): Z98.1 - ARTHRODESIS STATUS
--- NOTE | 2018-07-26 10:48 | PN ---
Physical Exam: SUBJECTIVE: Patient seen this morning and reports he is in a lot of pain. He is requesting to stand more. OBJECTIVE: Vital Signs Temperature 98.1 F 07/26/18 06:00 Pulse Rate 85 07/26/18 06:00 Respiratory Rate 18 07/26/18 06:00 Blood Pressure 132/93 07/26/18 06:00 O2 Sat by Pulse Oximetry (%) 100 07/25/18 21:00 GENERAL: The patient is awake, alert, and fully oriented, in no acute distress. cachectic looking HEAD: Normal with no signs of trauma. NECK: Cspine collar in place LUNGS: Breath sounds equal, clear to auscultation bilaterally, HEART: Regular rate and rhythm, S1, S2 without murmur, rub or gallop. ABDOMEN: Soft, nontender, nondistended, normoactive bowel sounds, EXTREMITIES: 2+ pulses, warm, well-perfused, no edema. hand animal control officer less on the left 4/5 strength upper extremity PSYCH: Normal mood, normal affect. SKIN: Warm, dry, normal turgor, no rashes or lesions noted CBC, BMP 07/26/18 06:30 07/26/18 06:30 Active Medications Acetaminophen (Tylenol -) 650 mg PO BID PRN PRN Reason: PAIN 4-6 Diphenhydramine HCl (Benadryl -) 25 mg PO Q6H PRN PRN Reason: FOR ITCHING Last Admin: 07/25/18 21:19 Dose: 25 mg Docusate Sodium (Colace -) 100 mg PO TID [facility] Last Admin: 07/26/18 05:54 Dose: 100 mg Fentanyl (Sublimaze Injection -) 50 mcg IVPUSH [id number] PRN PRN Reason: PAIN-PACU ORDER X 4 DOSES ONLY Last Admin: 07/25/18 16:05 Dose: 50 mcg Ferrous Sulfate (Feosol -) 325 mg PO DAILY [facility] Last Admin: 07/26/18 09:28 Dose: 325 mg Folic Acid (Folic Acid -) 1 mg PO DAILY [facility] Last Admin: 07/26/18 09:28 Dose: 1 mg Gabapentin (Neurontin -) 600 mg PO BID [facility] Last Admin: 07/26/18 09:28 Dose: 600 mg Heparin Sodium (Porcine) (Heparin -) 5,000 unit SQ Q8H [facility] Last Admin: 07/26/18 05:55 Dose: 5,000 unit Hydromorphone HCl (Dilaudid Lockstitch Zipper Setter -) 10 mg GAS WELDING EQUIPMENT MECHANIC GAS WELDING EQUIPMENT MECHANIC [facility]; Protocol Stop: 08/01/18 15:15 Lactated Ringer's (Lactated Ringers Solution) 1,000 mls @ 100 mls/hr IV ASDIR [facility] Last Admin: 07/25/18 17:50 Dose: 0 mls Cefazolin Sodium (Ancef 1 Gm Premixed Ivpb -) 1 gm in 50 mls @ 100 mls/hr IVPB Q8H [facility] Last Admin: 07/26/18 05:04 Dose: 100 mls/hr Metronidazole (Flagyl -) 500 mg PO TID [facility] Last Admin: 07/26/18 05:55 Dose: 500 mg Multivitamins/Minerals/Vitamin C (Tab-A-Vit -) 1 tab PO DAILY [facility] Last Admin: 07/26/18 09:28 Dose: 1 tab Ondansetron HCl (Zofran Injection) 4 mg IVPUSH Q6H PRN PRN Reason: NAUSEA AND/OR VOMITING Thiamine HCl (Vitamin B1 -) 100 mg PO DAILY [facility] Last Admin: 07/26/18 09:29 Dose: 100 mg ASSESSMENT/PLAN: Patient is a 63 y/o male with a history of HCV, HTN, spinal stenosis, chronic low back pain and cervical disorder who is her for pain. #s/p L2-L5 laminectomy with fusion - Patient evaluated by Dr. Clark, pain controlled and evaluated by PT before d/c - GAS WELDING EQUIPMENT MECHANIC pump via anesthesia - POD 1 - percocet 5/325 BID prn - C Collar 23 hr/ day no pillow - gabapentin 600 mg bid #abd pain with diarrhea, positive c diff - f/u ABD CT:trace pleural effusion and bibsilar atelectasis, horseshoe kidney, rig lobe liver mass suggesting hemangioma, prostatic hypetrophy, thikcened urinary bladder and prominent penile urethra -MRI: 2.1 x 1.5 cm R hemangioma - Abd US: slightly echogenic and heterogenous right hepatic lobe mass measuring 2.3 cm, non specific. prominent pancreatic tail - tumor marker AFP and CEA Ag negative - C diff antigen positive, Flagyl 500 TID day 5 #hx of HCV - abd US: slightly echogenic and heterogenous right hepatic lobe mass measuring 2.3 cm, non specific. prominent pancreatic tail - positive Hep C - f/u ABD MRI #ETOH abuse - continue folic acid and thiamine #iron deficiency - Ferrous sulfate 325 po daily #HTN - stable off medications #PPX - SCD's - heparin TID FEN - LR@ 100 - regular diet Dispo: f/u pain control and PT Visit type - Emergency Visit Emergency Visit: No - New Patient This patient is new to me today: No - Critical Care Critical Care patient: No
--- NOTE | 2018-07-26 13:10 | CON.ID ---
Consult Consult Specialty:: infectious diseases Referred by:: Donna Reason for Consultation:: uti,post op,dirrhoea/cdiff - History of Present Illness Chief Complaint: neck pain History of Present Illness: 63 year old male with past medical history of HCV, HTN, spinal stenosis, chronic low back pain and cervical disorder, was admitted for the abd pain and watery loose stools.no other symptoms patient was evaluated also by neurosurgery for pain in the spinal region and found to have spinal stenosis and underwent surgery for Spinal Stenosis. Splondylolithesis and had Exploration of spinal fusion, C2-C7 Laminectomies, adventism of lordosis and reconstruction with lateral mass/pars screws C2-C7 currently patient in hard neck collar,says he has a lot of pain and has ajp drain in place currently he denies having any dirrhoea patient currently on cefazolin and flagyl - History Source History Provided By: Patient Limitations to Obtaining History: No Limitations - Past Medical History CASKET LINER: Yes: Other (cervical disc disease with radiculopathy) Cardio/Vascular: Yes: HTN Hepatobiliary: Yes: Hepatitis C (Untreated) Musculoskeletal: Yes: Chronic low back pain - Alcohol/Substance Use Hx Alcohol Use: No History of Substance Use: reports: Cocaine (quit 30 + years ago), Heroin (Quit 30 + years ago) - Smoking History Smoking history: Never smoked Have you smoked in the past 12 months: No - Social History Usual Living Arrangement: Alone ADL: Independent 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 History of Recent Travel: No Home Medications - Allergies Allergies/Adverse Reactions: Allergies Allergy/AdvReac Type Severity Reaction Status Date / Time Penicillins Allergy Severe Swelling Verified 01/09/18 01:16 - Home Medications Home Medications: Ambulatory Orders Amlodipine Besylate [Norvasc -] 10 mg PO DAILY 07/22/18 Baclofen 10 mg PO BID 07/22/18 Folic Acid 1 mg PO QID 07/22/18 Gabapentin 600 mg PO BID 07/22/18 Lisinopril 5 mg PO QID 07/22/18 Multivitamin [One-Daily Multi-Vitamin] 1 each PO QID 07/22/18 Oxycodone HCl/Acetaminophen [Percocet 5-325 mg Tablet] 1 tab PO BID 07/22/18 Pregabalin [Lyrica -] 75 mg PO BID 07/22/18 Tramadol HCl 50 mg PO BID 07/22/18 Family Disease History - Family Disease History Family Disease History: Other: Father ( 41: Dental Abscess), Mother ( 84 : DM II, HTN), Brother (3 Bros. some with DM II), Sister (4 Sisters, some with DM II), Daughter (1 daughter, healthy) Review of Systems - Review of Systems Constitutional: reports: No Symptoms Eyes: reports: No Symptoms HENT: reports: No Symptoms Neck: reports: Pain on Movement, Other Cardiovascular: reports: No Symptoms Respiratory: reports: No Symptoms Gastrointestinal: reports: No Symptoms Genitourinary: reports: No Symptoms Musculoskeletal: reports: No Symptoms Integumentary: reports: No Symptoms Neurological: reports: No Symptoms Endocrine: reports: No Symptoms Hematology/Lymphatic: reports: No Symptoms Psychiatric: reports: No Symptoms Physical Exam Vital Signs: Vital Signs Temperature 98 F 07/26/18 08:25 Pulse Rate 80 07/26/18 08:25 Respiratory Rate 18 07/26/18 08:25 Blood Pressure 130/81 07/26/18 08:25 O2 Sat by Pulse Oximetry (%) 100 07/25/18 21:00 Constitutional: Yes: Well Nourished, Calm, Moderate Distress Eyes: Yes: Conjunctiva Clear Neck: Yes: Supple, Other (neck in hard collar) Cardiovascular: Yes: Regular Rate and Rhythm Respiratory: Yes: Regular, CTA Bilaterally Gastrointestinal: Yes: Normal Bowel Sounds, Soft Musculoskeletal: Yes: WNL Extremities: Yes: WNL Wound/Incision: Yes: Other (drain in place) Neurological: Yes: Alert, Oriented Psychiatric: Yes: Alert, Oriented Labs: CBC, BMP 07/26/18 06:30 07/26/18 06:30 Imaging - Results Chest X-ray: Report Reviewed, Image Reviewed Cat Scan: Report Reviewed, Image Reviewed MRI: Report Reviewed, Image Reviewed Assessment/Plan 63 year old male with history of Alcohol Abuse, Hepatitis C with abdominal pain , diarrhea, neck/back pain, and RLE pain.post op now from neurosurgery i have seen the reports of urine cx,also patient does not have dirrhoea now i would repeat urine cx again consider stopping flagyl rest continue current mgmt for now patient otherwise stable
--- NOTE | 2018-07-26 13:38 | PN ---
Teaching Attending Note Name of Resident: Lennie Main ATTENDING PHYSICIAN STATEMENT I saw and evaluated the patient. I reviewed the resident's note and discussed the case with the resident. I agree with the resident's findings and plan as documented. SUBJECTIVE: Complains of ongoing neck pain post-operatively with tingling in R hand and leg. Diarrhea resolved - no BMs in 2 days. No fever/chills. OBJECTIVE: Afebrile, Hemodynamically Stable. Last Vital Signs Temp Pulse Resp BP Pulse Ox 98 F 80 18 130/81 100 07/26/18 08:25 07/26/18 08:25 07/26/18 08:25 07/26/18 08:25 07/25/18 21:00 HEENT - Normocephalic. Dressing over surgical site in neck with drain in situ Heart - S1, S2, RRR Lungs - clear to auscultation Abdomen - Soft, non-tender. Bowel Sounds normal. Extremities - no edema, no calf tenderness Neuro - AAO x 3. Mild decrease in power UEs and RLE. Laboratory Results - last 24 hr 07/26/18 07/26/18 06:30 06:30 WBC 7.7 RBC 4.16 Hgb 13.1 Hct 38.9 MCV 93.4 MCH 31.6 MCHC 33.8 RDW 13.3 Plt Count 180 MPV 10.8 Sodium 135 L Potassium 3.8 Chloride 99 Carbon Dioxide 27 Anion Gap 9 BUN 8 Creatinine 0.7 Creat Clearance w eGFR > 60 Random Glucose 110 H Calcium 8.6 Total Bilirubin 0.5 AST 40 H ALT 32 Alkaline Phosphatase 51 Total Protein 6.7 Albumin 3.4 Current Medications Generic Name Dose Route Start Last Admin Trade Name Liveq PRN Reason Stop Dose Admin Acetaminophen 650 mg 07/25/18 16:07 Tylenol - PO BID PRN PAIN 4-6 Diphenhydramine HCl 25 mg 07/25/18 16:02 07/25/18 21:19 Benadryl - PO 25 mg Q6H PRN Administration FOR ITCHING Docusate Sodium 100 mg 07/25/18 22:00 07/26/18 05:54 Colace - PO 100 mg TID [facility] Administration Fentanyl 50 mcg 07/25/18 16:07 07/25/18 16:05 Sublimaze Injection - IVPUSH 50 mcg [id number] PRN Administration PAIN-PACU ORDER X 4 DOSES ONLY Ferrous Sulfate 325 mg 07/26/18 10:00 07/26/18 09:28 Feosol - PO 325 mg DAILY [facility] Administration Folic Acid 1 mg 07/26/18 10:00 07/26/18 09:28 Folic Acid - PO 1 mg DAILY [facility] Administration Gabapentin 600 mg 07/25/18 22:00 07/26/18 09:28 Neurontin - PO 600 mg BID [facility] Administration Heparin Sodium (Porcine) 5,000 unit 07/25/18 22:00 07/26/18 05:55 Heparin - SQ 5,000 unit Q8H [facility] Administration Hydromorphone HCl 10 mg 07/26/18 08:56 Dilaudid Assembler For Puller Over Machine - DESKTOP TECHNICIAN 08/01/18 15:15 DESKTOP TECHNICIAN [facility] Protocol Lactated Ringer's 1,000 mls @ 100 mls/hr 07/25/18 16:07 07/25/18 17:50 Lactated Ringers Solution IV 0 mls ASDIR [facility] Administration Cefazolin Sodium 1 gm in 50 mls @ 100 mls/hr 07/25/18 20:30 07/26/18 05:04 Ancef 1 Gm Premixed Ivpb - IVPB 100 mls/hr Q8H [facility] Administration Metronidazole 500 mg 07/25/18 22:00 07/26/18 05:55 Flagyl - PO 500 mg TID [facility] Administration Multivitamins/Minerals/Vitamin C 1 tab 07/26/18 10:00 07/26/18 09:28 Tab-A-Vit - PO 1 tab DAILY [facility] Administration Ondansetron HCl 4 mg 07/25/18 16:07 Zofran Injection IVPUSH Q6H PRN NAUSEA AND/OR VOMITING Thiamine HCl 100 mg 07/26/18 10:00 07/26/18 09:29 Vitamin B1 - PO 100 mg DAILY [facility] Administration ASSESSMENT AND PLAN: 63 year old male with history of Alcohol Abuse, Hepatitis C (not treated) presented to the ER with abdominal pain, diarrhea, neck/back pain, and RLE pain. MRI C-Spine: post fusion C3-7, cervical cord atrophy C3/4, C6/7 1. POD 1 s/p C2-C7 laminectomies, decompression and fusion History of Congenital Spinal Stenosis s/p prior C-Spine fusion, Severe Stenosis L4/5. PT, OOB to chair, DVT Px with Heparin, Analgesia with Dilaudid DESKTOP TECHNICIAN. Neurontin for neuropathic pain. Nae-op Abx Cefazolin as per Neurosurgery. Post-op CT report pending. 2. Clostridium difficile Diarrhea - improved - no further abdominal discomfort/ tenderness. Continue Flagyl. Afebrile, Hemodynamically Stable. 3. R Lobe Hepatic 2.[address] and US, possible Hemangioma. Hemangioma- protocol MRI confirms Hemangioma 2.1 x 1.5 cm. 4. Hepatitis C Infection - previously on Harvoni but did not complete treatment - for follow up with Dr. Gomes as out-patient. 5. Chronic Alcohol Abuse - no evidence of withdrawal. Continue MVI, Thiamine, Folate. DVT Px - Heparin SQ
[2018-07-26] MEDS: HYDROmorphone *PCA* 10MG/50ML DISP.SYRIN PCA SCH (17:37)
[2018-07-26] MEDS: LACTATED RINGERS SOLUTION 1,000 ML IV SCH (18:05)
[2018-07-27] MEDS: CEFAZOLIN 1 GM/D5W 1 GM/50 ML BAG IVPB SCH ×3 (04:30→20:30)
[2018-07-27] MEDS: metroNIDAZOLE 250 MG TABLET PO SCH ×3 (06:19→21:33)
[2018-07-27] MEDS: DOCUSATE SODIUM 100 MG CAPSULE (FP) PO SCH ×3 (06:19→21:33)
[2018-07-27] MEDS: HEPARIN NA (PORCINE) 5,000 UNITS/ML 1ML VIAL SQ SCH ×4 (06:20→21:35)
--- NOTE | 2018-07-27 08:36 | PN ---
Progress Note (short form) - Note Progress Note: Anesthesia/pain Pt seen and examined S:Alert and awake c/o mild pain O: Vital Signs Temperature 99.2 F 07/27/18 06:00 Pulse Rate 77 07/27/18 06:00 Respiratory Rate 18 07/27/18 06:00 Blood Pressure 152/96 07/27/18 06:00 O2 Sat by Pulse Oximetry (%) 100 07/26/18 21:00 A/P: Current Active Problems Status post cervical spinal fusion (Acute) s/p Doing well post op Uses SR. SOC[employer] MEDIA & MOBILE MANAGER encouraged to use them frequently as needed Continue current care Roberto Castillo MD
[2018-07-27 08:52] LABS: BASO % 0.6 % (0-2.0); EOS % 0.1 % (0-4.5); HEMATOCRIT 36.7 % (35.4-49); HEMOGLOBIN 12.6 GM/dL (11.7-16.9); LYMPH % 14.8 % (8-40); MCH 31.8 pg (25.7-33.7); MCHC 34.3 g/dl (32.0-35.9); MEAN CELL VOLUME 92.6 fl (80-96); MEAN PLT VOLUME 10.9 fl (7.5-11.1); MONO % 14.8 % (3.8-10.2); NEUT % 69.7 % (42.8-82.8); PLATELET COUNT 171 K/MM3 (134-434); RBC 3.96 M/mm3 (4.00-5.60); RDW 13.1 % (11.9-15.9); WHITE BLOOD COUNT 9.1 K/mm3 (4.0-10.0)
[2018-07-27 09:45] LABS: ALBUMIN 2.9 g/dl (3.4-5.0); ALK PHOS 46 U/L (45-117); ANION GAP 9 MMOL/L (8-16); BILIRUBIN,TOTAL 0.7 mg/dL (0.2-1); BLOOD UREA NITROGEN 13 mg/dL (7-18); CALCIUM 8.3 mg/dL (8.5-10.1); CHLORIDE 97 mmol/L (98-107); CO2 27 mmol/L (21-32); CREATININE 0.8 mg/dL (0.55-1.3); GLUCOSE,RANDOM 100 mg/dL (74-106); POTASSIUM 3.9 mmol/L (3.5-5.1); SGOT/AST 23 U/L (15-37); SGPT/ALT 21 U/L (13-61); SODIUM 133 mmol/L (136-145); TOT PROT 6.2 g/dl (6.4-8.2)
[2018-07-27] MEDS ORDERED: oxyCODONE HCL 5 MG TABLET PO PRN ×3 (10:05→17:04)
--- NOTE | 2018-07-27 11:04 | PN ---
Physical Exam: SUBJECTIVE: Patient seen this morning and reports the pain is still there. he is eating okay and would like to go to rehab facility tomorrow. LANDFILL GAS TECHNICIAN will be stopped and pain managed by po medication. OBJECTIVE: Vital Signs Temperature 99.2 F 07/27/18 06:00 Pulse Rate 77 07/27/18 06:00 Respiratory Rate 18 07/27/18 06:00 Blood Pressure 152/96 07/27/18 06:00 O2 Sat by Pulse Oximetry (%) 100 07/26/18 21:00 GENERAL: The patient is awake, alert, and fully oriented, in no acute distress. cachectic looking HEAD: Normal with no signs of trauma. NECK: Cspine collar in place LUNGS: Breath sounds equal, clear to auscultation bilaterally, HEART: Regular rate and rhythm, S1, S2 without murmur, rub or gallop. ABDOMEN: Soft, nontender, nondistended, normoactive bowel sounds, EXTREMITIES: 2+ pulses, warm, well-perfused, no edema. hand ticket maker less on the left 4/5 strength upper extremity PSYCH: Normal mood, normal affect. SKIN: Warm, dry, normal turgor, no rashes or lesions noted CBC, BMP 07/27/18 07:00 07/27/18 07:00 Active Medications Acetaminophen (Tylenol -) 650 mg PO BID PRN PRN Reason: PAIN 4-6 Diphenhydramine HCl (Benadryl -) 25 mg PO Q6H PRN PRN Reason: FOR ITCHING Last Admin: 07/25/18 21:19 Dose: 25 mg Docusate Sodium (Colace -) 100 mg PO TID [facility] Last Admin: 07/27/18 06:19 Dose: 100 mg Fentanyl (Sublimaze Injection -) 50 mcg IVPUSH [id number] PRN PRN Reason: PAIN-PACU ORDER X 4 DOSES ONLY Last Admin: 07/25/18 16:05 Dose: 50 mcg Ferrous Sulfate (Feosol -) 325 mg PO DAILY [facility] Last Admin: 07/26/18 09:28 Dose: 325 mg Folic Acid (Folic Acid -) 1 mg PO DAILY [facility] Last Admin: 07/26/18 09:28 Dose: 1 mg Gabapentin (Neurontin -) 600 mg PO BID [facility] Last Admin: 07/26/18 21:41 Dose: 600 mg Heparin Sodium (Porcine) (Heparin -) 5,000 unit SQ Q8H [facility] Last Admin: 07/27/18 08:04 Dose: Not Given Hydromorphone HCl (Dilaudid Intern Retail -) 10 mg LANDFILL GAS TECHNICIAN LANDFILL GAS TECHNICIAN [facility]; Protocol Stop: 08/01/18 15:15 Last Admin: 07/26/18 17:37 Dose: 10 mg Lactated Ringer's (Lactated Ringers Solution) 1,000 mls @ 100 mls/hr IV ASDIR [facility] Last Admin: 07/26/18 18:05 Dose: Not Given Cefazolin Sodium (Ancef 1 Gm Premixed Ivpb -) 1 gm in 50 mls @ 100 mls/hr IVPB Q8H [facility] Last Admin: 07/27/18 04:30 Dose: 100 mls/hr Metronidazole (Flagyl -) 500 mg PO TID [facility] Last Admin: 07/27/18 06:19 Dose: 500 mg Multivitamins/Minerals/Vitamin C (Tab-A-Vit -) 1 tab PO DAILY [facility] Last Admin: 07/26/18 09:28 Dose: 1 tab Ondansetron HCl (Zofran Injection) 4 mg IVPUSH Q6H PRN PRN Reason: NAUSEA AND/OR VOMITING Oxycodone HCl (Roxicodone -) 5 mg PO Q6H PRN PRN Reason: PAIN LEVEL 1-3 Oxycodone HCl (Roxicodone -) 10 mg PO Q6H PRN PRN Reason: PAIN LEVEL 7-10 Thiamine HCl (Vitamin B1 -) 100 mg PO DAILY [facility] Last Admin: 07/26/18 09:29 Dose: 100 mg ASSESSMENT/PLAN: Patient is a 63 y/o male with a history of HCV, HTN, spinal stenosis, chronic low back pain and cervical disorder who is her for pain. #s/p L2-L5 laminectomy with fusion - Patient evaluated by Dr. Clark, pain controlled and evaluated by PT before d/c - LANDFILL GAS TECHNICIAN pump on hold - POD 3 - oxy 5 and 10 as needed - C Collar 23 hr/ day no pillow - gabapentin 600 mg bid #abd pain resolved, cdiff treated - symptom free - C diff antigen positive, Flagyl 5 days of treatment #hemangioma - f/u ABD CT:trace pleural effusion and bibsilar atelectasis, horseshoe kidney, rig lobe liver mass suggesting hemangioma, prostatic hypetrophy, thikcened urinary bladder and prominent penile urethra - MRI: 2.1 x 1.5 cm R hemangioma - Abd US: slightly echogenic and heterogenous right hepatic lobe mass measuring 2.3 cm, non specific. prominent pancreatic tail - tumor marker AFP and CEA Ag negative #hx of HCV - abd US: slightly echogenic and heterogenous right hepatic lobe mass measuring 2.3 cm, non specific. prominent pancreatic tail - positive Hep C - ABD MRI- hemangioma - patient followed by Dr. Dinh #ETOH abuse - continue folic acid and thiamine #iron deficiency - Ferrous sulfate 325 po daily #HTN - stable off medications #PPX - SCD's - heparin TID FEN - regular diet Dispo: care home tomorrow Visit type - Emergency Visit Emergency Visit: No - New Patient This patient is new to me today: No - Critical Care Critical Care patient: No
--- NOTE | 2018-07-27 11:19 | PN ---
Teaching Attending Note Name of Resident: Lennie Main ATTENDING PHYSICIAN STATEMENT I saw and evaluated the patient. I reviewed the resident's note and discussed the case with the resident. I agree with the resident's findings and plan as documented. SUBJECTIVE: Complains of ongoing neck pain post-operatively with tingling in R hand and leg. Diarrhea resolved. No fever/chills. OBJECTIVE: Afebrile, Hemodynamically Stable. Last Vital Signs Temp Pulse Resp BP Pulse Ox 99.2 F 77 18 152/96 100 07/27/18 06:00 07/27/18 06:00 07/27/18 06:00 07/27/18 06:00 07/26/18 21:00 HEENT - Normocephalic. Dressing over surgical site in neck with drain in situ Heart - S1, S2, RRR Lungs - clear to auscultation Abdomen - Soft, non-tender. Bowel Sounds normal. Extremities - no edema, no calf tenderness Neuro - AAO x 3. Mild decrease in power UEs and RLE. Laboratory Results - last 24 hr 07/23/18 07/27/18 07/27/18 06:30 07:00 07:00 WBC 9.1 RBC 3.96 L Hgb 12.6 Hct 36.7 MCV 92.6 MCH 31.8 MCHC 34.3 RDW 13.1 Plt Count 171 MPV 10.9 Absolute Neuts (auto) 6.3 Neutrophils % 69.7 D Lymphocytes % 14.8 D Monocytes % 14.8 H Eosinophils % 0.1 D Basophils % 0.6 Nucleated RBC % 0 Sodium 133 L Potassium 3.9 Chloride 97 L Carbon Dioxide 27 Anion Gap 9 BUN 13 Creatinine 0.8 Creat Clearance w eGFR > 60 Random Glucose 100 Calcium 8.3 L Total Bilirubin 0.7 AST 23 ALT 21 Alkaline Phosphatase 46 Total Protein 6.2 L Albumin 2.9 L Hepatitis A IgM Ab Negative Hep Bs Antigen Negative Hep B Core IgM Ab Indeterminate H Hepatitis C Antibody >11.0 H HCV Quantitation [id number] HCV RNA log copies/mL 5.863 Current Medications Generic Name Dose Route Start Last Admin Trade Name Freq PRN Reason Stop Dose Admin Acetaminophen 650 mg 07/25/18 16:07 Tylenol - PO BID PRN PAIN 4-6 Diphenhydramine HCl 25 mg 07/25/18 16:02 07/25/18 21:19 Benadryl - PO 25 mg Q6H PRN Administration FOR ITCHING Docusate Sodium 100 mg 07/25/18 22:00 07/27/18 06:19 Colace - PO 100 mg TID [facility] Administration Fentanyl 50 mcg 07/25/18 16:07 07/25/18 16:05 Sublimaze Injection - IVPUSH 50 mcg [id number] PRN Administration PAIN-PACU ORDER X 4 DOSES ONLY Ferrous Sulfate 325 mg 07/26/18 10:00 07/26/18 09:28 Feosol - PO 325 mg DAILY [facility] Administration Folic Acid 1 mg 07/26/18 10:00 07/26/18 09:28 Folic Acid - PO 1 mg DAILY [facility] Administration Gabapentin 600 mg 07/25/18 22:00 07/26/18 21:41 Neurontin - PO 600 mg BID [facility] Administration Heparin Sodium (Porcine) 5,000 unit 07/25/18 22:00 07/27/18 08:04 Heparin - SQ Not Given Q8H [facility] Hydromorphone HCl 10 mg 07/26/18 08:56 07/26/18 17:37 Dilaudid Steam Frame Operator - DATA LIBRARIAN 08/01/18 15:15 10 mg DATA LIBRARIAN [facility] Administration Protocol Cefazolin Sodium 1 gm in 50 mls @ 100 mls/hr 07/25/18 20:30 07/27/18 04:30 Ancef 1 Gm Premixed Ivpb - IVPB 100 mls/hr Q8H [facility] Administration Metronidazole 500 mg 07/25/18 22:00 07/27/18 06:19 Flagyl - PO 500 mg TID [facility] Administration Multivitamins/Minerals/Vitamin C 1 tab 07/26/18 10:00 07/26/18 09:28 Tab-A-Vit - PO 1 tab DAILY [facility] Administration Ondansetron HCl 4 mg 07/25/18 16:07 Zofran Injection IVPUSH Q6H PRN NAUSEA AND/OR VOMITING Oxycodone HCl 5 mg 07/27/18 10:05 Roxicodone - PO Q6H PRN PAIN LEVEL 1-3 Oxycodone HCl 10 mg 07/27/18 10:05 Roxicodone - PO Q6H PRN PAIN LEVEL 7-10 Thiamine HCl 100 mg 07/26/18 10:00 07/26/18 09:29 Vitamin B1 - PO 100 mg DAILY [facility] Administration ASSESSMENT AND PLAN: 63 year old male with history of Alcohol Abuse, Hepatitis C (not treated) presented to the ER with abdominal pain, diarrhea, neck/back pain, and RLE pain. MRI C-Spine: post fusion C3-7, cervical cord atrophy C3/4, C6/7 1. POD 2 s/p C2-C7 laminectomies, decompression and fusion History of Congenital Spinal Stenosis s/p prior C-Spine fusion, Severe Stenosis L4/5. PT, OOB to chair, DVT Px with Heparin, Analgesia with Dilaudid DATA LIBRARIAN - for transition to oral oxycodone Neurontin for neuropathic pain. Nae-op Abx Cefazolin as per Neurosurgery. Post-op CT report still pending. Further managment as per Neurosurgery 2. Clostridium difficile Diarrhea - improved - no further abdominal discomfort/ tenderness. Continue Flagyl. Afebrile, Hemodynamically Stable. 3. R Lobe Hepatic 2.[address] and US, possible Hemangioma. Hemangioma- protocol MRI confirms Hemangioma 2.1 x 1.5 cm. 4. Hepatitis C Infection - previously on Harvoni but did not complete treatment - for follow up with Dr. Gomes as out-patient. 5. Chronic Alcohol Abuse - no evidence of withdrawal. Continue MVI, Thiamine, Folate. DVT Px - Heparin SQ
[2018-07-27] MEDS: FERROUS SO4 325 MG TABLET (FP) PO SCH (11:22)
[2018-07-27] MEDS: THIAMINE HCL 100 MG TABLET (FP) PO SCH (11:22)
[2018-07-27] MEDS: GABAPENTIN 300 MG CAPSULE (FP) PO SCH ×2 (11:22→21:34)
[2018-07-27] MEDS: MULTIVITAMINS (DAILY MVI) TABLET (FP) PO SCH (11:22)
[2018-07-27] MEDS: FOLIC ACID 1 MG TABLET (FP) PO SCH (11:22)
[2018-07-27] MEDS: HYDROmorphone *PCA* 10MG/50ML DISP.SYRIN PCA SCH (11:23)
[2018-07-27] MEDS: ACETAMINOPHEN 325 MG TABLET (FP) PO PRN (13:09)
--- NOTE | 2018-07-27 16:27 | PN ---
Progress Note, Physician History of Present Illness: Pt seen and examined, events noted. He is alert, without acute distress. Denies abd pain/diarrhea. Tmax 99.8F - Current Medication List Current Medications: Active Medications Acetaminophen (Tylenol -) 650 mg PO BID PRN PRN Reason: PAIN 4-6 Last Admin: 07/27/18 13:09 Dose: 650 mg Diphenhydramine HCl (Benadryl -) 25 mg PO Q6H PRN PRN Reason: FOR ITCHING Last Admin: 07/25/18 21:19 Dose: 25 mg Docusate Sodium (Colace -) 100 mg PO TID [facility] Last Admin: 07/27/18 13:09 Dose: 100 mg Fentanyl (Sublimaze Injection -) 50 mcg IVPUSH [id number] PRN PRN Reason: PAIN-PACU ORDER X 4 DOSES ONLY Last Admin: 07/25/18 16:05 Dose: 50 mcg Ferrous Sulfate (Feosol -) 325 mg PO DAILY [facility] Last Admin: 07/27/18 11:22 Dose: 325 mg Folic Acid (Folic Acid -) 1 mg PO DAILY [facility] Last Admin: 07/27/18 11:22 Dose: 1 mg Gabapentin (Neurontin -) 600 mg PO BID [facility] Last Admin: 07/27/18 11:22 Dose: 600 mg Heparin Sodium (Porcine) (Heparin -) 5,000 unit SQ Q8H [facility] Last Admin: 07/27/18 15:47 Dose: 5,000 unit Hydromorphone HCl (Dilaudid Transportation Project Manager -) 10 mg INVENTORY CONTROL COORDINATOR INVENTORY CONTROL COORDINATOR [facility]; Protocol Stop: 08/01/18 15:15 Last Admin: 07/27/18 11:23 Dose: Not Given Cefazolin Sodium (Ancef 1 Gm Premixed Ivpb -) 1 gm in 50 mls @ 100 mls/hr IVPB Q8H [facility] Last Admin: 07/27/18 13:08 Dose: 100 mls/hr Metronidazole (Flagyl -) 500 mg PO TID [facility] Last Admin: 07/27/18 13:08 Dose: 500 mg Multivitamins/Minerals/Vitamin C (Tab-A-Vit -) 1 tab PO DAILY [facility] Last Admin: 07/27/18 11:22 Dose: 1 tab Ondansetron HCl (Zofran Injection) 4 mg IVPUSH Q6H PRN PRN Reason: NAUSEA AND/OR VOMITING Oxycodone HCl (Roxicodone -) 5 mg PO Q6H PRN PRN Reason: PAIN LEVEL 1-3 Oxycodone HCl (Roxicodone -) 10 mg PO Q6H PRN PRN Reason: PAIN LEVEL 7-10 Last Admin: 07/27/18 13:11 Dose: 10 mg Thiamine HCl (Vitamin B1 -) 100 mg PO DAILY [facility] Last Admin: 07/27/18 11:22 Dose: 100 mg - Objective Vital Signs: Vital Signs Temperature 99.8 F H 07/27/18 14:35 Pulse Rate 103 H 07/27/18 14:35 Respiratory Rate 18 07/27/18 14:35 Blood Pressure 116/80 07/27/18 14:35 O2 Sat by Pulse Oximetry (%) 100 07/26/18 21:00 Constitutional: Yes: No Distress HENT: Yes: Other (+collar, drain in place) Cardiovascular: Yes: Regular Rate and Rhythm Respiratory: Yes: Regular Gastrointestinal: Yes: Normal Bowel Sounds, Soft Edema: No Integumentary: Yes: WNL Neurological: Yes: Alert Labs: CBC, BMP 07/27/18 07:00 07/27/18 07:00 INR, PTT INR 1.04 (0.83-1.09) 07/25/18 07:30 Microbiology 07/21/18 15:50 Blood - Peripheral Venous Blood Culture - Final NO GROWTH AFTER 5 DAYS INCUBATION 07/21/18 15:50 Blood - Peripheral Venous Blood Culture - Final NO GROWTH AFTER 5 DAYS INCUBATION 07/21/18 16:12 Urine - Urine Clean Catch Urine Culture - Final Staphylococcus Epidermidis 07/23/18 09:45 Stool Clostridium difficile Antigen (STACIA) - Final 07/23/18 09:45 Stool Clostridium difficile Toxin Assay - Final Problem List - Problems (1) Status post cervical spinal fusion Code(s): Z98.1 - ARTHRODESIS STATUS (2) Back pain Code(s): M54.9 - DORSALGIA, UNSPECIFIED (3) HTN (hypertension) Code(s): I10 - ESSENTIAL (PRIMARY) HYPERTENSION Qualifiers: Hypertension type: essential hypertension Qualified Code(s): I10 - Essential (primary) hypertension (4) Liver mass, right lobe Code(s): R16.0 - HEPATOMEGALY, NOT ELSEWHERE CLASSIFIED (5) Radiculopathy Code(s): M54.10 - RADICULOPATHY, SITE UNSPECIFIED Assessment/Plan s/p C2-C7 laminectomy/decompression/fusion Abd pain/diarrhea - resolved Hep C - incomplete treatment HTN Hx of alcohol abuse -- labs noted, Cdiff Toxin negative/antigen positive -- diarrhea resolved, will continue Flagyl for now along with Cefazolin -- Hep C treatment as outpt -- f/u CT report -- monitor temp, Tmax 99.8F
[2018-07-27] MEDS: oxyCODONE HCL 5 MG TABLET PO PRN ×2 (17:39→21:42)
[2018-07-28] MEDS: oxyCODONE HCL 5 MG TABLET PO PRN ×6 (02:07→23:04)
[2018-07-28] MEDS: CEFAZOLIN 1 GM/D5W 1 GM/50 ML BAG IVPB SCH ×3 (04:30→20:57)
[2018-07-28] MEDS: DOCUSATE SODIUM 100 MG CAPSULE (FP) PO SCH ×3 (06:24→21:31)
[2018-07-28] MEDS: metroNIDAZOLE 250 MG TABLET PO SCH ×3 (06:24→23:04)
[2018-07-28] MEDS: HEPARIN NA (PORCINE) 5,000 UNITS/ML 1ML VIAL SQ SCH ×4 (06:24→21:32)
[2018-07-28 07:52] LABS: BASO % 0.5 % (0-2.0); EOS % 0.2 % (0-4.5); HEMOGLOBIN 12.1 GM/dL (11.7-16.9); LYMPH % 15.5 % (8-40); MCH 31.8 pg (25.7-33.7); MCHC 34.6 g/dl (32.0-35.9); MEAN CELL VOLUME 91.9 fl (80-96); MEAN PLT VOLUME 10.2 fl (7.5-11.1); MONO % 14.2 % (3.8-10.2); NEUT % 69.6 % (42.8-82.8); PLATELET COUNT 160 K/MM3 (134-434); RDW 12.9 % (11.9-15.9); WHITE BLOOD COUNT 9.4 K/mm3 (4.0-10.0)
--- NOTE | 2018-07-28 10:22 | PN ---
Progress Note (short form) - Note Progress Note: Anesthesiology Pain Service 63 y.o. man POD#2 s/p cervical spine surgery under GA. Pt. is doing well. No acute issues. VSS. Of note, EXERCISE INSTRUCT was d/c'd yesterday; he is now on PO analgesics. 63 y.o. man with stable post-operative course. Continue management as per primary team.
[2018-07-28] MEDS: FERROUS SO4 325 MG TABLET (FP) PO SCH (10:38)
[2018-07-28] MEDS: ACETAMINOPHEN 325 MG TABLET (FP) PO PRN (10:39)
[2018-07-28] MEDS: MULTIVITAMINS (DAILY MVI) TABLET (FP) PO SCH (10:39)
[2018-07-28] MEDS: THIAMINE HCL 100 MG TABLET (FP) PO SCH (10:39)
[2018-07-28] MEDS: GABAPENTIN 300 MG CAPSULE (FP) PO SCH ×2 (10:39→21:31)
[2018-07-28] MEDS: FOLIC ACID 1 MG TABLET (FP) PO SCH (10:39)
--- NOTE | 2018-07-28 10:58 | PN ---
Progress Note (short form) - Note Progress Note: Patient improving after Cervical revision surgery. He feels that his Right hand has more function. On exam, he has less tone and more dexterity. Collar in place. Patient now off UN[employer] STEWARD with Q4 pain regimen. QUENTIN drainage reducing. Patient complains of cool Left hand. - Warm compresses to Left hand. If symptoms persist, may consider Doppler or vascular consultation prior to discharge. - Continue QUENTIN for one more day, plan to remove Sunday morning prior to discharge - Continue Cervical Collar - Physical Therapy - GI/DVT prophylaxis - ID consultation appreciated.
[2018-07-28 10:59] LABS: ANISOCYTOSIS 0; MACROCYTOSIS 0; PLATELET ESTIMATE DECREASED
--- NOTE | 2018-07-28 14:02 | PN ---
Progress Note, Physician History of Present Illness: Pt is alert/afebrile. Says pain is controlled. Abd pain/diarrhea resolved. No specific complaints. - Current Medication List Current Medications: Active Medications Acetaminophen (Tylenol -) 650 mg PO BID PRN PRN Reason: PAIN 4-6 Last Admin: 07/28/18 10:39 Dose: 650 mg Diphenhydramine HCl (Benadryl -) 25 mg PO Q6H PRN PRN Reason: FOR ITCHING Last Admin: 07/25/18 21:19 Dose: 25 mg Docusate Sodium (Colace -) 100 mg PO TID [facility] Last Admin: 07/28/18 13:34 Dose: 100 mg Fentanyl (Sublimaze Injection -) 50 mcg IVPUSH [id number] PRN PRN Reason: PAIN-PACU ORDER X 4 DOSES ONLY Last Admin: 07/25/18 16:05 Dose: 50 mcg Ferrous Sulfate (Feosol -) 325 mg PO DAILY [facility] Last Admin: 07/28/18 10:38 Dose: 325 mg Folic Acid (Folic Acid -) 1 mg PO DAILY [facility] Last Admin: 07/28/18 10:39 Dose: 1 mg Gabapentin (Neurontin -) 600 mg PO BID [facility] Last Admin: 07/28/18 10:39 Dose: 600 mg Heparin Sodium (Porcine) (Heparin -) 5,000 unit SQ Q8H [facility] Last Admin: 07/28/18 13:34 Dose: 5,000 unit Cefazolin Sodium (Ancef 1 Gm Premixed Ivpb -) 1 gm in 50 mls @ 100 mls/hr IVPB Q8H [facility] Last Admin: 07/28/18 13:34 Dose: 100 mls/hr Metronidazole (Flagyl -) 500 mg PO TID [facility] Last Admin: 07/28/18 13:34 Dose: 500 mg Multivitamins/Minerals/Vitamin C (Tab-A-Vit -) 1 tab PO DAILY [facility] Last Admin: 07/28/18 10:39 Dose: 1 tab Ondansetron HCl (Zofran Injection) 4 mg IVPUSH Q6H PRN PRN Reason: NAUSEA AND/OR VOMITING Oxycodone HCl (Roxicodone -) 10 mg PO Q4H PRN PRN Reason: PAIN LEVEL 7-10 Last Admin: 07/28/18 10:40 Dose: 10 mg Oxycodone HCl (Roxicodone -) 5 mg PO Q4H PRN PRN Reason: PAIN LEVEL 1-3 Thiamine HCl (Vitamin B1 -) 100 mg PO DAILY [facility] Last Admin: 07/28/18 10:39 Dose: 100 mg - Objective Vital Signs: Vital Signs Temperature 98.2 F 07/28/18 13:54 Pulse Rate 75 07/28/18 13:54 Respiratory Rate 18 07/28/18 13:54 Blood Pressure 122/81 07/28/18 13:54 O2 Sat by Pulse Oximetry (%) 96 07/27/18 21:00 Constitutional: Yes: No Distress, Calm Cardiovascular: Yes: Regular Rate and Rhythm Respiratory: Yes: Regular Gastrointestinal: Yes: Normal Bowel Sounds, Soft Integumentary: Yes: WNL Wound/Incision: Yes: Other (drain with serosanguinous fluid) Labs: CBC, BMP 07/28/18 06:10 07/27/18 07:00 INR, PTT INR 1.04 (0.83-1.09) 07/25/18 07:30 Problem List - Problems (1) Status post cervical spinal fusion Code(s): Z98.1 - ARTHRODESIS STATUS (2) Back pain Code(s): M54.9 - DORSALGIA, UNSPECIFIED (3) HTN (hypertension) Code(s): I10 - ESSENTIAL (PRIMARY) HYPERTENSION Qualifiers: Hypertension type: essential hypertension Qualified Code(s): I10 - Essential (primary) hypertension (4) Liver mass, right lobe Code(s): R16.0 - HEPATOMEGALY, NOT ELSEWHERE CLASSIFIED (5) Radiculopathy Code(s): M54.10 - RADICULOPATHY, SITE UNSPECIFIED Assessment/Plan s/p C2-C7 laminectomy/decompression/fusion Abd pain/diarrhea - resolved Hep C - incomplete treatment HTN Hx of alcohol abuse -- diarrhea resolved, will continue Flagyl for now and consider d/c Cefazolin -- decreased drainage, plan is to remove -- Hep C treatment as outpt -- f/u CT report - pending -- pt is afebrile/vitals stable
--- NOTE | 2018-07-28 15:26 | PN ---
Progress Note (short form) - Note Progress Note: SUBJECTIVE: Complains of ongoing neck pain post-operatively with tingling in R hand and coolness of L arm/hand. Diarrhea resolved. No fever/chills. OBJECTIVE: Afebrile, Hemodynamically Stable. Last Vital Signs Temp Pulse Resp BP Pulse Ox 98.2 F 75 18 122/81 96 07/28/18 13:54 07/28/18 13:54 07/28/18 13:54 07/28/18 13:54 07/27/18 21:00 HEENT - Normocephalic. Dressing over surgical site in neck with drain in situ. C -Collar in place. Heart - S1, S2, RRR Lungs - clear to auscultation Abdomen - Soft, non-tender. Bowel Sounds normal. Extremities - no edema, no calf tenderness. L arm under warm compresses, decreased strength, pulses palpable. Neuro - AAO x 3. Mild decrease in power UEs L> R. Laboratory Results - last 24 hr 07/28/18 06:10 WBC 9.4 RBC 3.80 L Hgb 12.1 Hct 35.0 L MCV 91.9 MCH 31.8 MCHC 34.6 RDW 12.9 Plt Count 160 MPV 10.2 Absolute Neuts (auto) 6.6 Neutrophils % 69.6 Neutrophils % (Manual) 74.2 Band Neutrophils % 0.0 Lymphocytes % 15.5 Lymphocytes % (Manual) 13.9 Monocytes % 14.2 H Monocytes % (Manual) 12 H Eosinophils % 0.2 D Eosinophils % (Manual) 0.0 Basophils % 0.5 Basophils % (Manual) 0.0 Myelocytes % (Man) 0 Promyelocytes % (Man) 0 Blast Cells % (Manual) 0 Nucleated RBC % 0 Metamyelocytes 0 Hypochromia 0 Platelet Estimate Decreased Platelet Comment Present Polychromasia 0 Poikilocytosis 0 Anisocytosis 0 Microcytosis 0 Macrocytosis 0 Current Medications Generic Name Dose Route Start Last Admin Trade Name Freq PRN Reason Stop Dose Admin Acetaminophen 650 mg 07/25/18 16:07 07/28/18 10:39 Tylenol - PO 650 mg BID PRN Administration PAIN 4-6 Diphenhydramine HCl 25 mg 07/25/18 16:02 07/25/18 21:19 Benadryl - PO 25 mg Q6H PRN Administration FOR ITCHING Docusate Sodium 100 mg 07/25/18 22:00 07/28/18 13:34 Colace - PO 100 mg TID [facility] Administration Fentanyl 50 mcg 07/25/18 16:07 07/25/18 16:05 Sublimaze Injection - IVPUSH 50 mcg [id number] PRN Administration PAIN-PACU ORDER X 4 DOSES ONLY Ferrous Sulfate 325 mg 07/26/18 10:00 07/28/18 10:38 Feosol - PO 325 mg DAILY [facility] Administration Folic Acid 1 mg 07/26/18 10:00 07/28/18 10:39 Folic Acid - PO 1 mg DAILY [facility] Administration Gabapentin 600 mg 07/25/18 22:00 07/28/18 10:39 Neurontin - PO 600 mg BID [facility] Administration Heparin Sodium (Porcine) 5,000 unit 07/25/18 22:00 07/28/18 13:34 Heparin - SQ 5,000 unit Q8H [facility] Administration Cefazolin Sodium 1 gm in 50 mls @ 100 mls/hr 07/25/18 20:30 07/28/18 13:34 Ancef 1 Gm Premixed Ivpb - IVPB 100 mls/hr Q8H [facility] Administration Metronidazole 500 mg 07/25/18 22:00 07/28/18 13:34 Flagyl - PO 500 mg TID [facility] Administration Multivitamins/Minerals/Vitamin C 1 tab 07/26/18 10:00 07/28/18 10:39 Tab-A-Vit - PO 1 tab DAILY [facility] Administration Ondansetron HCl 4 mg 07/25/18 16:07 Zofran Injection IVPUSH Q6H PRN NAUSEA AND/OR VOMITING Oxycodone HCl 10 mg 07/27/18 17:04 07/28/18 14:41 Roxicodone - PO 10 mg Q4H PRN Administration PAIN LEVEL 7-10 Oxycodone HCl 5 mg 07/27/18 17:04 Roxicodone - PO Q4H PRN PAIN LEVEL 1-3 Thiamine HCl 100 mg 07/26/18 10:00 07/28/18 10:39 Vitamin B1 - PO 100 mg DAILY [facility] Administration ASSESSMENT AND PLAN: 63 year old male with history of Alcohol Abuse, Hepatitis C (not treated) presented to the ER with abdominal pain, diarrhea, neck/back pain, and RLE pain. MRI C-Spine: post fusion C3-7, cervical cord atrophy C3/4, C6/7 1. POD 3 s/p C2-C7 laminectomies, decompression and fusion History of Congenital Spinal Stenosis s/p prior C-Spine fusion, Severe Stenosis L4/5. 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 Complains of 1 day history of coolness and decreased power LUE post-operatively - further management as per Neurosurgery Neurontin for neuropathic pain. Nae-op Abx Cefazolin as per Neurosurgery/ID. Will order STAT CT Angiogram LUE. 2. Clostridium difficile Diarrhea - improved - no further abdominal discomfort/ tenderness. Continue Flagyl. Afebrile, Hemodynamically Stable. 3. R Lobe Hepatic 2.[address] and US, possible Hemangioma. Hemangioma- protocol MRI confirms Hemangioma 2.1 x 1.5 cm. 4. Hepatitis C Infection - previously on Harvoni but did not complete treatment - for follow up with Dr. Gomes as out-patient. 5. Chronic Alcohol Abuse - no evidence of withdrawal. Continue MVI, Thiamine, Folate. DVT Px - Heparin SQ Visit type - Emergency Visit Emergency Visit: Yes ED Registration Date: 07/21/18 Care time: The patient presented to the Emergency Department on the above date and was hospitalized for further evaluation of their emergent condition. - New Patient This patient is new to me today: No - Critical Care Critical Care patient: No - Discharge Referral Referred to [facility] No
[2018-07-29] MEDS: oxyCODONE HCL 5 MG TABLET PO PRN ×4 (03:00→16:09)
[2018-07-29] MEDS: CEFAZOLIN 1 GM/D5W 1 GM/50 ML BAG IVPB SCH (04:34)
[2018-07-29] MEDS: HEPARIN NA (PORCINE) 5,000 UNITS/ML 1ML VIAL SQ SCH ×2 (06:30→13:40)
[2018-07-29] MEDS: DOCUSATE SODIUM 100 MG CAPSULE (FP) PO SCH ×2 (06:31→13:39)
[2018-07-29] MEDS: metroNIDAZOLE 250 MG TABLET PO SCH ×2 (06:31→13:39)
[2018-07-29 08:05] VITALS: TEMP 99.1
[2018-07-29] MEDS: GABAPENTIN 300 MG CAPSULE (FP) PO SCH (10:12)
[2018-07-29] MEDS: FOLIC ACID 1 MG TABLET (FP) PO SCH (10:12)
[2018-07-29] MEDS: FERROUS SO4 325 MG TABLET (FP) PO SCH (10:12)
[2018-07-29] MEDS: MULTIVITAMINS (DAILY MVI) TABLET (FP) PO SCH (10:13)
[2018-07-29] MEDS: THIAMINE HCL 100 MG TABLET (FP) PO SCH (10:13)
--- NOTE | 2018-07-29 11:51 | PN ---
Teaching Attending Note Name of Resident: Lennie Main ATTENDING PHYSICIAN STATEMENT I saw and evaluated the patient. I reviewed the resident's note and discussed the case with the resident. I agree with the resident's findings and plan as documented. SUBJECTIVE:c/o weak and cold of the LUE since the surgery. progressively worsening stating he cant move the arm. states diarrhea resolved denies Cp, SOB , fever, chills, N/V/C/D OBJECTIVE: Last Vital Signs Temp Pulse Resp BP Pulse Ox 99.1 F 91 H 20 152/89 96 07/29/18 06:00 07/29/18 06:00 07/29/18 06:00 07/29/18 06:00 07/28/18 21:00 General NAD +c-collar in place Extremities B/L UE warm. strength LUE 4/5 RUE 5/5, sensation grossly intact ASSESSMENT AND PLAN: 63 year old male with history of Alcohol Abuse, Hepatitis C (not treated) presented to the ER with abdominal pain, diarrhea, neck/back pain, and RLE pain. 1. Spinal stenosis- s/p C2-C7 laminectomies, decompression and fusion on 07/25. reports weak and cold LUE. refuses to move the arm however on testing strength seems to be only slightly weaker than the RUE. CT done but awaiting results. QUENTIN drain to be removed today. will f/u with neurosurg for further evaluation of this complaint. pain control. PT. d/c cefazolin 2. Clostridium difficile Diarrhea -diarrhea resolved. on flagyl day 5. ID on board. 3. R Lobe Hepatic 2.[address] and US, possible Hemangioma. Hemangioma- protocol MRI confirms Hemangioma 2.1 x 1.5 cm. 4. Hepatitis C Infection - previously on Harvoni but did not complete treatment - for follow up with Dr. Gomes as out-patient. 5. Chronic Alcohol Abuse - no evidence of withdrawal. Continue MVI, Thiamine, Folate. 6. DVT Px - Heparin SQ 7. will need MAEGAN when medically cleared. awaiting neurosurg input if needs further testing for present complaints
--- NOTE | 2018-07-29 13:14 | PN ---
Progress Note, Physician - Current Medication List Current Medications: Active Medications Acetaminophen (Tylenol -) 650 mg PO BID PRN PRN Reason: PAIN 4-6 Last Admin: 07/28/18 10:39 Dose: 650 mg Diphenhydramine HCl (Benadryl -) 25 mg PO Q6H PRN PRN Reason: FOR ITCHING Last Admin: 07/25/18 21:19 Dose: 25 mg Docusate Sodium (Colace -) 100 mg PO TID [facility] Last Admin: 07/29/18 06:31 Dose: 100 mg Fentanyl (Sublimaze Injection -) 50 mcg IVPUSH [id number] PRN PRN Reason: PAIN-PACU ORDER X 4 DOSES ONLY Last Admin: 07/25/18 16:05 Dose: 50 mcg Ferrous Sulfate (Feosol -) 325 mg PO DAILY [facility] Last Admin: 07/29/18 10:12 Dose: 325 mg Folic Acid (Folic Acid -) 1 mg PO DAILY [facility] Last Admin: 07/29/18 10:12 Dose: 1 mg Gabapentin (Neurontin -) 600 mg PO BID [facility] Last Admin: 07/29/18 10:12 Dose: 600 mg Heparin Sodium (Porcine) (Heparin -) 5,000 unit SQ Q8H [facility] Last Admin: 07/29/18 06:30 Dose: 5,000 unit Metronidazole (Flagyl -) 500 mg PO TID [facility] Last Admin: 07/29/18 06:31 Dose: 500 mg Multivitamins/Minerals/Vitamin C (Tab-A-Vit -) 1 tab PO DAILY [facility] Last Admin: 07/29/18 10:13 Dose: 1 tab Ondansetron HCl (Zofran Injection) 4 mg IVPUSH Q6H PRN PRN Reason: NAUSEA AND/OR VOMITING Oxycodone HCl (Roxicodone -) 10 mg PO Q4H PRN PRN Reason: PAIN LEVEL 7-10 Last Admin: 07/29/18 11:07 Dose: 10 mg Oxycodone HCl (Roxicodone -) 5 mg PO Q4H PRN PRN Reason: PAIN LEVEL 1-3 Thiamine HCl (Vitamin B1 -) 100 mg PO DAILY [facility] Last Admin: 07/29/18 10:13 Dose: 100 mg - Objective Vital Signs: Vital Signs Temperature 99.1 F 07/29/18 06:00 Pulse Rate 91 H 07/29/18 06:00 Respiratory Rate 20 07/29/18 06:00 Blood Pressure 152/89 07/29/18 06:00 O2 Sat by Pulse Oximetry (%) 96 07/28/18 21:00 Labs: CBC, BMP 07/28/18 06:10 07/27/18 07:00 INR, PTT INR 1.04 (0.83-1.09) 07/25/18 07:30
--- NOTE | 2018-07-29 13:48 | PN ---
Progress Note (short form) - Note Progress Note: POD #4 Alert. Sitting up in bed at 30 degrees. Wearing his C-collar as directed. Improving s/p Cervical revision surgery. States he is using his right hand more...compared to before surgery. Patient just returned from getting upper extremity duplex to r/o DVT (c/o left hand coolness over the weekend). Official results: negative DVT. Last Vital Signs Temp Pulse Resp BP Pulse Ox 99.1 F 80 20 100/71 96 07/29/18 08:55 07/29/18 08:55 07/29/18 08:55 07/29/18 08:55 07/28/18 21:00 CBC, BMP 07/28/18 06:10 07/27/18 07:00 OUTPUT 07/27/18 07/28/18 07/28/18 07:18 06:00 23:01 QUENTIN 35 40 10 Gen:alert. nad Neck: C-collar in place. Posteriorly, aquacel dressing c/d/i. QUENTIN output as above. LE: SCDs bilat Problem List - Problems (1) Status post cervical spinal fusion Assessment/Plan: POD #4 s/p Exploration of spinal fusion, C2-C7 Laminectomies, synagogue of lordosis and reconstruction with lateral mass/pars screws C2-C7 QUENTIN dc'd on rounds Tylenol for fever > 100.3F Per Medicine, patient going to REHAB facility today Ok for dc from a neurosurgery standpoint. Post-Operative DC instructions in DC planning portion of E-Chart Above discussed with Dr. Clark and agrees. Code(s): Z98.1 - ARTHRODESIS STATUS
[2018-07-29 14:35] VITALS: BP 126/62; PULSE 90
--- NOTE | 2018-07-29 16:46 | DS ---
Physical Exam: SUBJECTIVE: Patient seen this morning and still complains of pain. Patient to go to rehab. OBJECTIVE: Vital Signs Period Temp Pulse Resp BP Sys/Greenberg Pulse Ox Last 24 Hr 98.3 F-99.2 F 80-97 18-20 100-152/62-89 96 PHYSICAL EXAM GENERAL: The patient is awake, alert, and fully oriented, in no acute distress. cachectic looking HEAD: Normal with no signs of trauma. NECK: Cspine collar in place LUNGS: Breath sounds equal, clear to auscultation bilaterally, HEART: Regular rate and rhythm, S1, S2 without murmur, rub or gallop. ABDOMEN: Soft, nontender, nondistended, normoactive bowel sounds, EXTREMITIES: 2+ pulses, warm, well-perfused, no edema. 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 SKIN: Warm, dry, normal turgor, no rashes or lesions noted LABS HOSPITAL COURSE: Date of Admission:07/21/18 Patient admitted to the hospital with chronic pain. Patient was evaluated by neuro surgery and underwent a s/p C2-C5 lanimectomy with fusion for cord compression. Patient unable to walk with rehab and DC to SNF. Patient admitted with diarrhea. Cdiff was antigen positive and toxin negative. Patient treated with Flagyl for five days and Cdiff resolved. Patient with a known history of HCV, and untreated due to noncompliance. Imaging showed hemangioma in the liver. Patient HCV positive still. ABD CT:trace pleural effusion and bibsilar atelectasis, horseshoe kidney, rig lobe liver mass suggesting hemangioma, prostatic hypetrophy, thikcened urinary bladder and prominent penile urethra MRI: 2.1 x 1.5 cm R hemangioma Abd US: slightly echogenic and heterogenous right hepatic lobe mass measuring 2.3 cm, non specific. prominent pancreatic tail UCX with no growth Date of Discharge: 07/29/18 Minutes to complete discharge: 40 Discharge Summary Reason For Visit: DIFFICULTY WALKING Current Active Problems Status post cervical spinal fusion (Acute) Condition: Improved - Instructions Diet, Activity, Other Instructions: You were admitted to the hospital for pain with ambulation. You underwent surgery of your cervical spine. You are going to a rehab facility to help regain your strength. We also did imaging of your abdomen. There is a mass in your liver. You need to follow up with a Cmm Operator to monitor this mass. You also have a history of Hepatitis C that was never fully treated. It is very important to complete full treatment of this disease. Please make an appointment with Dr. Godfrey in one week. Please make an appointment to follow up with your primary care physician within one week. You should make an appointment to follow up with Dr. Vance for management of your pain. Please continue your home medications as prescribed. Return to the emergency department if you have nausea, vomiting, chest pain, if you are unable to control your bowels or bladder, shortness of breath, or headache. Dr. Clark's Post Operative Instructions Physical Activity Resume your normal everyday activity as tolerated. No heavy lifting or exercise until seen by your surgeon. You may walk unlimited amounts and climb stairs. You may resume driving the car when you feel safe and comfortable behind the wheel and you are no longer wearing your brace. Do not operate a vehicle while taking narcotic medication. Brace If you had neck surgery, wear surgical collar 23 hr/day Remove to shower only. Wound Care Keep your incision clean, dry and covered at all times. Apply an occlusive dressing (Saran wrap or Tegaderm) when showering to avoid getting your incision wet. Do not submerge incision or apply ointments or creams. The earl will be removed in the office in 10-14 days post-op. Diet There are no dietary restrictions. Eat healthy, high-fiber foods. Drink 6-8 glasses of liquid each day. This will assist in keeping your bowels regular. Pain Management You may take Tylenol or acetaminophen. Please do not take more than 2400 mg in one day. Any pain prescription medication ordered should be taken as prescribed for moderate to severe pain. For the pain you can take: Oxycodone 5mg every 6 hours by mouth as needed for pain on a level 1-5 Oxycodone 10mg every 6 hours by mouth as needed for pain on a level 6-7 -Do not use heavy machinery or drive while you are taking this medication, please try to limit the amount of oxycodone you take during your rehabilitation Call Dr Cheung for any of the following: Severe pain not relieved by medication Fever of 101 or higher Excessive bleeding or drainage on dressing Inability to urinate Any chest pain or shortness of breath, seek Emergency Care. Call the office to confirm a post-operative appointment for 2-3 weeks post-op Mejia Clark MD [facility] [address] [place] [address] Referrals: Dheeraj Godfrey MD [Staff Physician] - Elena Hauser [Primary Care Provider] - Evelyn Vance MD [Staff Physician] - Disposition: HOME - Home Medications Comprehensive Discharge Medication List: Ambulatory Orders Folic Acid 1 mg PO QID 07/22/18 Gabapentin 600 mg PO BID 07/22/18 Multivitamin [One-Daily Multi-Vitamin] 1 each PO QID 07/22/18 Oxycodone HCl/Acetaminophen [Percocet 5-325 mg Tablet] 1 tab PO BID 07/22/18 This patient is new to me today: No Emergency Visit: No Critical Care patient: No - Discharge Referral Referred to [facility] Med P.C.: No
== END 2018-07-29 19:00 | disposition home or self-care (01) | DRG 454 ==
LOC: JER 15:01 → JERBED 20:39 → J8W 23:26
PROVIDERS: ADMIT Internal Medicine; ATTEND Internal Medicine
PROC: 0RG2071 Fusion of 2 or more Cervical Vertebral Joints with Autologous Tissue Substitute, Posterior Approach, Posterior Column, Open Approach (ICD-10-PCS; 2018-07-25)
PROC: 00NW0ZZ Release Cervical Spinal Cord, Open Approach (ICD-10-PCS; 2018-07-25)
PROC: 0HX6XZZ Transfer Back Skin, External Approach (ICD-10-PCS; 2018-07-25)
PROC: B01BZZZ Fluoroscopy of Spinal Cord (ICD-10-PCS; 2018-07-25)
PROC: 0RG20AJ Fusion of 2 or more Cervical Vertebral Joints with Interbody Fusion Device, Posterior Approach, Anterior Column, Open Approach (ICD-10-PCS; principal; 2018-07-25 11:30)
DX: M47.12 Other spondylosis with myelopathy, cervical region (principal); A04.72 Enterocolitis due to Clostridium difficile, not specified as recurrent; E87.2 Acidosis; G95.20 Unspecified cord compression; J98.11 Atelectasis; J90 Pleural effusion, not elsewhere classified; R64 Cachexia; Z68.1 Body mass index [BMI] 19.9 or less, adult; M48.061 Spinal stenosis, lumbar region without neurogenic claudication; F10.10 Alcohol abuse, uncomplicated; I10 Essential (primary) hypertension; B19.20 Unspecified viral hepatitis C without hepatic coma; D18.00 Hemangioma unspecified site
CPT/HCPCS: 36415; 71045-TC-FY; 72125-TC; 72141-TC; 74177-TC; 74183-TC; 76705-TC; 80048; 80053; 80074; 81003; 82105; 82378; 83605; 83690; 83735; 83880; 84100; 85025; 85027; 85610; 86850; 86900; 86901; 87040; 87086; 87186; 87324; 87449; 87522; 87804; 93005; 93010; 93971; 94010; 94760; 97116-GP; 97161-GP; 99285-25; J1644; J7030

== ENCOUNTER 2019-03-18 11:00 | Emergency (ER) | payer OTHER ==
[2019-03-18 11:20] VITALS: BMI 19.0
[2019-03-18] MEDS ORDERED: morphine SO4 SUSTAINED ACTING 15 MG TABLET.SA PO ONE (12:34)
--- NOTE | 2019-03-18 12:35 | PDOC ---
History of Present Illness - General Chief Complaint: Back Pain Stated Complaint: Pain Time Seen by Provider: 03/18/19 11:34 - History of Present Illness Initial Comments: Rodrigue An is a 63yo man with a PMH of HTN, HepC, spinal stenosis, Cervical disc disease s/p C2-C5 laminectomy with residual neurological deficits , chronic back pain who presents reporting worsening of his chronic pain. He states that his pain was so severe overnight that he was unable to get up out of bed tonight. He denies any focal weakness or new numbness/tingling but is reluctant to move his limbs secondary to pain. Mr An states that his home Percocet usually helps with the pain, but he did not take any because he was "trying to get out of the door." He reports that he has a home health aide but has not been able to get home PT or pain management visits set up since getting home. Past History - Past Medical History Allergies/Adverse Reactions: Allergies Allergy/AdvReac Type Severity Reaction Status Date / Time Penicillins Allergy Severe Swelling Verified 01/09/18 01:16 Home Medications: Ambulatory Orders Folic Acid 1 mg PO QID 07/22/18 Gabapentin 600 mg PO BID 07/22/18 Multivitamin [One-Daily Multi-Vitamin] 1 each PO QID 07/22/18 Oxycodone HCl/Acetaminophen [Percocet 5-325 mg Tablet] 1 tab PO BID 07/22/18 Morphine *Sr* [Ms Contin -] 15 mg PO DAILY #3 tablet.sa MDD 1 03/18/19 Oxycodone HCl/Acetaminophen [Percocet 5-325 mg Tablet] 1 tab PO Q6H 3 Days #12 tablet MDD 4 03/18/19 Anemia: No Asthma: No Cancer: No Cardiac Disorders: No CVA: No COPD: No CHF: No Dementia: No Diabetes: No GI Disorders: No Disorders: No HTN: Yes Hypercholesterolemia: No Liver Disease: (HEP C) Seizures: No Thyroid Disease: No - Surgical History Abdominal Surgery: No Appendectomy: No Cardiac Surgery: No Cholecystectomy: No Lung Surgery: No Neurologic Surgery: (cervical fusion) Orthopedic Surgery: Yes (discogenic dz s/p neck sx) - Immunization History Immunization Up to Date: Yes - Psycho Social/Smoking Cessation Hx Smoking History: Former smoker Have you smoked in the past 12 months: No Information on smoking cessation initiated: No Hx Alcohol Use: Yes Drug/Substance Use Hx: No Substance Use Type: None Hx Substance Use Treatment: No Review of Systems - Review of Systems Comments:: General: No fevers, no chills, no weight or appetite change, no malaise HEENT: No changes in vision, no changes in hearing, no congestion, no sore throat CV: No chest pain, no palpitations, no LE edema Pulm: No SOB, no cough, no wheezing GI: No nausea or vomiting, no change in bowel habits, no melena : No frequency, no urgency, no dysuria Musc: See HPI Skin: No rash, no lesions, no erythema Endo: No excessive thirst, no heat/cold intolerance Heme: No unusual bruising or bleeding, no swollen glands Neuro: No syncope, no numbness/tingling, no focal weakness Vasc: No claudication Psych: No recent change in mood, no SI or HI *Physical Exam - Vital Signs Last Vital Signs Temp Pulse Resp BP Pulse Ox 97.8 F 60 18 141/92 100 03/18/19 11:16 03/18/19 11:16 03/18/19 11:16 03/18/19 11:16 03/18/19 11:16 - Physical Exam Comments: General: Comfortable, no acute distress HEENT: PERRL, EOMI, MMM, voice normal, normal neck ROM Cards: RRR, no murmur appreciated Pulm: Comfortable on room air, clear to auscultation bilaterally Abd: Soft, nontender, nondistended Ext: Atraumatic. No LE edema. Moves all extremities. Poor effort on strength exam but equal bilaterally, able to move legs minimally off bed, intact ankle flexion. Sensation to light touch intact on distal extremities. WWP Skin: Normal color, no rashes or lesions Neuro: A&Ox3, CN grossly intact, normal speech Psych: Mood appropriate to situation ED Treatment Course - LABORATORY CBC & Chemistry Diagram: 03/18/19 16:50 03/18/19 16:50 Medical Decision Making - Medical Decision Making 03/18/19 12:35 Rodrigue An is a 63yo man with a PMH of HTN, HepC, spinal stenosis, Cervical disc disease s/p C2-C5 laminectomy with residual neurological deficits , chronic back pain who presents reporting worsening of his chronic pain. - Most likely chronic pain, but unable to obtain adequate neurological exam due to pain and poor participation - Will give home pain meds and reassess 03/18/19 15:16 - Pt now feeling improved, more at baseline - Physical exam improved as well. Now able to flex hips, strength intact at ankles, sensation to light touch intact. Pt reports that he is at his baseline. - Social work contacted. Pt reported to Dr Brown that he had run out of his home medications as he has been unable to successfully set up home therapy, home physician visits, etc. - Waiting for a call back from [employer] work 03/18/19 16:06 - Patient now reporting chest pain, endorsed to Dr Brown on re-evaluation - CBC, CMP, trop, EKG, CXR ordered for evaluation 03/18/19 18:33 - Labs unremarkable - Seen by social work. Will have PT come later this week. Should have pain management follow up on Sunday as well. Meds until Sunday prescribed by Dr Brown. - Patient now reports feeling improved, requesting to leave. Will d/c home. Sister available to transport pt to home Discussed with Dr Stephanie Brothers PGY2 Discharge - Discharge Information Problems reviewed: Yes Clinical Impression/Diagnosis: Back pain Qualifiers: Back pain location: back pain in unspecified location Chronicity: chronic Back pain laterality: unspecified Qualified Code(s): M54.9 - Dorsalgia, unspecified Condition: Stable Disposition: HOME - Admission No - Additional Discharge Information Prescriptions: Morphine *Sr* [Ms Contin -] 15 mg PO DAILY #3 tablet.sa MDD 1 Oxycodone HCl/Acetaminophen [Percocet 5-325 mg Tablet] 1 tab PO Q6H 3 Days #12 tablet MDD 4 - Follow up/Referral Referrals: Elena Hauser [Primary Care Provider] - - Patient Discharge Instructions Patient Printed Discharge Instructions: DI for Chronic Pain -- Adult Additional Instructions: Discharge Instructions: You were seen in the emergency department with worsening of your chronic pain after running out of medications at home. You felt improved after receiving pain medications in the ED. You had blood tests, an EKG and a CT scan to evaluate for any abnormalities, but there were no concerns found. Please continue to take your home medications as prescribed. You have been given a prescription for several days of your pain medications, but you will need to follow up with pain management for refills. [employer] work was able to verify that you can be seen on Sunday by pain management. Seek immediate medical care for worsening symptoms, new neurological deficits, falls or head injuries, or any other medical emergency. - Post Discharge Activity
[2019-03-18] MEDS ORDERED: morphine SO4 SUSTAINED ACTING 15 MG TABLET.SA ONE (12:47)
--- NOTE | 2019-03-18 13:08 | PDOC ---
Documentation entered by Libia Puente SCRIBE, acting as scribe for Edward Brown MD. Edward Brown MD: This documentation has been prepared by the Cindi izquierdo Adrianna, SCRIBE, under my direction and personally reviewed by me in its entirety. I confirm that the documentation accurately reflects all work, treatment, procedures, and medical decision making performed by me. Attending Attestation - Resident Resident Name: Soledad Brothers - ED Attending Attestation I have performed the following: I have examined & evaluated the patient, The case was reviewed & discussed with the resident, I agree w/resident's findings & plan, Exceptions are as noted - HPI HPI: The patient is a 63 year old male, with a significant PMH of hypertension, hyperlipidemia, chronic cervical disc disease, hepatitis C, prior transient ischemic attack, and lower pelvic kidney, who presents to the ED for evaluation of back pain for several months, worse in the last 3 days. Patient has had chronic back pain for several years, which has been worse since his most recent surgery (laminectomy in August with Dr. Zimmer). He complains of low back pain that radiates down to his bilateral ankles, and residual left upper extremity weakness from his surgery. Patient ran out of his daily pain medications ( percocet and morphine), and notes his pain has become unbearable and he cannot move (typically ambulates with a walker at baseline). Allergy: Penicillin Surgical: C2-C7 Laminectomies Social: former smoker, daily alcohol, h/o marijuana/cocaine/opioid. Has daily home health care nurse, has not yet followed up with pain management PMD: Dr. Elena Hauser Neurosurgery: Dr. Zimmer - Physicial Exam PE: Vitals: Triage Vital signs reviewed General Appearance: no acute distress, well nourished well developed, Cardiac: Regular rate and rhythm, no murmurs, no rubs, no gallops, Lungs: Clear to auscultation bilateral, good air movement bilaterally, Extremities: Full range of motion to all extremities, no cyanosis, clubbing, or edema Skin: Warm and dry, no rashes or lesions, no petechiae Neuro: AOX3; Contracted to the left upper extremity. 4/5 strength of the right upper extremity (patient states is chronic since August). Bilateral equal lower extremity weakness, but able to lift legs off the bed (patient states this is also chronic since August). Cranial Nerves 2-12 grossly intact, Sensation intact to all extremities. Psych: normal mood, normal affect - Medical Decision Making 63 year old male, with a history of hypertension, hyperlipidemia, chronic cervical disc disease, hepatitis C, prior transient ischemic attack, and lower pelvic kidney, presents with back pain. Plan: pain medications, reassess 03/18/19 16:31 Patient with chronic back pain has ran out of his pain medications Status post receiving his home pain medications patient feels much better Patient complaining of some mild chest discomfort will check EKG troponin labs and head CT given some complaints of weakness although they appear more chronic and related to his spinal disease Our certified caregiver has seen the patient at bedside he has appropriate care physical therapy and inpatient follow-up at home his pain management doctor cannot see him till Sunday. I will discharge him with a prescription for Percocet and morphine until Sunday when he sees his doctor Dr. Salazar to follow-up labs and reassess patient. Heart Score/ECG Review - ECG Impressions Comment:: 03/18/19 16:32 EKG performed at 1605 demonstrates sinus rhythm no ST elevations no T wave inversions Interpreted by me
[2019-03-18 17:16] LABS: BASO % 1.4 % (0-2.0); EOS % 2.3 % (0-4.5); HEMATOCRIT 42.5 % (35.4-49); HEMOGLOBIN 13.6 GM/dL (11.7-16.9); LYMPH % 39.5 % (8-40); MCH 30.6 pg (25.7-33.7); MCHC 32.1 g/dl (32.0-35.9); MEAN CELL VOLUME 95.2 fl (80-96); MEAN PLT VOLUME 11.5 fl (7.5-11.1); MONO % 10.7 % (3.8-10.2); NEUT % 46.1 % (42.8-82.8); PLATELET COUNT 135 K/MM3 (134-434); RBC 4.46 M/mm3 (4.00-5.60); RDW 14.5 % (11.9-15.9); WHITE BLOOD COUNT 3.2 K/mm3 (4.0-10.0)
[2019-03-18 17:30] LABS: BLOOD UREA NITROGEN 7.2 mg/dL (7-18); CALCIUM 8.7 mg/dL (8.5-10.1); CREATININE 0.9 mg/dL (0.55-1.3); POTASSIUM 4.1 mmol/L (3.5-5.1)
[2019-03-18 19:07] VITALS: BP 131/79; PULSE 62; TEMP 98.7
--- NOTE | 2019-03-19 09:58 | EKG ---
Test Reason : Blood Pressure : / mmHG Vent. Rate : 056 BPM Atrial Rate : 056 BPM P-R Int : 166 ms QRS Dur : 088 ms QT Int : 476 ms P-R-T Axes : 075 075 067 degrees QTc Int : 459 ms SINUS BRADYCARDIA OTHERWISE NORMAL ECG WHEN COMPARED WITH ECG OF 21-JUL-2018 16:22, NO SIGNIFICANT CHANGE WAS FOUND Confirmed by ARIELLE SANDS, PHILIP ([id number]) on 03/19/2019 9:57:51 AM Referred By: Confirmed By:PHILIP UGZMÁN MD
== END 2019-03-18 19:07 | disposition home or self-care (01) ==
LOC: JER 11:00
DX: M54.89 Other dorsalgia (principal); R07.9 Chest pain, unspecified; I10 Essential (primary) hypertension; B18.2 Chronic viral hepatitis C; M48.00 Spinal stenosis, site unspecified; M50.30 Other cervical disc degeneration, unspecified cervical region; E78.5 Hyperlipidemia, unspecified; Z98.1 Arthrodesis status; Z86.73 Personal history of transient ischemic attack (TIA), and cerebral infarction without residual deficits; Z99.89 Dependence on other enabling machines and devices; Z88.0 Allergy status to penicillin
CPT/HCPCS: 36415; 80048; 84484; 85025; 93005; 93010; 99281-25